=== PATIENT | female | born 1945 | race Caucasian/White ===

== ENCOUNTER → 2017-04-09 | Outpatient (CLI) | payer MEDICARE ==
[~2017-04-09] MED LIST: AC500T PO; ATRV10T; ATRV10T PO; CHOL10002 PO; CHOL10003; DIPH25TA82 PO; FAMO-119 PO; LEVO50TA6 PO; LEVO75TA58 PO; LOVOXYL; LVT.05T PO; PANT40TA2 PO; POLY119P PO; VIT D PO
== END | disposition home or self-care (01) ==
LOC: LAB 18:45
PROVIDERS: ATTEND Nurse Practitioner Family
DX: N39.0 Urinary tract infection, site not specified (principal)
CPT/HCPCS: 87070; 87088

== ENCOUNTER → 2017-04-19 | Outpatient (CLI) | payer MEDICARE | LOC: CARD 11:16 | PROVIDERS: ATTEND Family Medicine | DX: R01.1 Cardiac murmur, unspecified (principal) | CPT/HCPCS: 93225; 93226 ==

== ENCOUNTER 2017-05-31 13:45 | Outpatient (RCR) | payer MEDICARE | END 2017-05-31 16:46 | disposition home or self-care (01) | PROVIDERS: ATTEND Family Medicine | DX: G57.90 Unspecified mononeuropathy of unspecified lower limb (principal) ==

== ENCOUNTER → 2017-06-14 | Outpatient (CLI) | payer MEDICARE | LOC: CARD 10:07 | PROVIDERS: ATTEND Internal Medicine Cardiovascular Disease | DX: I47.1 Supraventricular tachycardia (principal) ==

== ENCOUNTER 2017-10-02 22:06 | Emergency (ER) | payer MEDICARE ==
[~2017-10-02] VITALS: Ht 175.3 cm; Wt 68.0 kg
--- OUTSIDE RECORDS SUMMARY | 2017-10-02 22:12 | XMS REPORT ---
Author Author GENERATED, SYSTEM Organization Unknown Address Unknown Phone Unavailable Care Team Providers Care Shingles Roofer Name Role Phone PP Unavailable Reason For Visit Reason for Visit from 08/14/2016 12:15 AM:* Pt Stated Reason for Adm : Weakness , LU, elevated lactic acid levels, pneumonia Chief Complaint PNEUMONIA, WEAKNESS Social History Social History from 08/14/2016 11:28 AM:* Tobacco Use? : Never Smoker Social History from 08/14/2016 12:15 AM:* Tobacco Use? : Never Smoker Functional Status Functional Status from 08/14/2016 10:00 AM:* # Assists : Independent Functional Status from 08/14/2016 7:30 AM:* LOC : Alert * Oriented To : Person,Place,Time * Weight Bearing Status : Full * Assist Level : Independent * # Assists : Independent Functional Status from 08/14/2016 12:15 AM:* LOC : Alert * Oriented To : Person,Place,Time,Event * Weight Bearing Status : Full * Assist Level : Independent * # Assists : Independent Vital Signs Hospital Vital Signs from 08/14/2016 11:00 AM:* Height : 5/9 ft,in * Pulse : 87 * Respirations : 18 * BP : 173/94 Hospital Vital Signs from 08/14/2016 6:12 AM:* Height : 5/9 ft,in * Temperature : 97.6 F * Pulse : 74 * Respirations : 18 * BP : 140/68 Hospital Vital Signs from 08/14/2016 12:15 AM:* Weight : 70.5/ kg * Height : 5/9 ft,in Hospital Vital Signs from 08/13/2016 11:45 PM:* Weight : 70.5/ kg * Height : 5/9 ft,in * Temperature : 97.6 F * Pulse : 89 * Respirations : 18 * BP : 166/80 Results Chemistry from 08/14/2016 12:58 AMTSH 17.003 UIU/ML H (0.340-4.820 UIU/ML) THYROXINE FREE (FT4) (LAB) 0.99 NG/DL (0.76-1.46 NG/DL) LACTIC ACID 1.7 mmol/L (0.9-1.7 mmol/L) Problems Encounter Diagnosis * Attacks of Weakness Status:Active. * Dehydration Status:Active. * Fall Risk Status:Active. * History of Hypothyroidism Status:Active. * History of Raised Blood Lipids Status:Active. * History of Tuberculosis Status:Active. Encounters Encounter Diagnosis * Attacks of Weakness Status:Active. * Dehydration Status:Active. * Fall Risk Status:Active. * History of Hypothyroidism Status:Active. * History of Raised Blood Lipids Status:Active. * History of Tuberculosis Status:Active. Plan of Care Treatment Plan from 08/14/2016 10:00 AM:* Care Management Note : Patient admitted under outpatient observation status w/ c/o generalized lower extremity weakness. Found to be dehydrated w/ acute kidney injury. 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 POC included IV fluids. Patient improved w/ anticipated DC to home today. Patient is outpatient status appropriate at this time. Procedures No relevant procedures performed. Immunizations No immunizations administered or ordered. Hospital Course Hospital Discharge Instructions How to care for yourself at home from 08/14/2016 11:28 AM:* Discharge Activity : Activity as tolerated * Discharge Diet : Diet as tolerated * Discharge Diet: : Regular * Call your doctor if: : Fever over 101 F or severe chills,Chest pain or other unexplained symptoms,Tingling or numbness develops * Specific Discharge Teaching Instructions provided: : Yes * Discharge on Warfarin : No Allergies, Adverse Reactions, Alerts * Benadryl causes Palpitations. * ephinepherine causes Palpitations. * Penicillins causes Rash. * No Latex Allergy. * No IV Contrast Allergy. * No Known Food Allergies. Medication It is the responsibility of the patient or patient physician relations representative to confirm the list of medications with either the patient's personal care provider or the patient's follow-up care provider to ensure the patient has an appropriate list of medications to take at home. Discharge medications Continued medications* cholecalciferol (vitamin D3) (Dialyvite Vitamin D) 5,000 unit Capsule, Ordered By: OLGA ARANGO MD Directions: 1 capsule oral daily * levothyroxine (Synthroid) 50 mcg Tablet, Ordered By: OLGA ARANGO MD Directions: 1 tablet oral daily before breakfast Changed medications* famotidine (Pepcid) 10 mg oral once a day in am Tablet, Ordered By: OLGA ARANGO MD Directions: 1 tablet oral daily Stopped medications* None
--- OUTSIDE RECORDS SUMMARY | 2017-10-02 22:13 | XMS REPORT | Continuity of Care Document ---
Author Author [facility] Organization [facility] Address Unknown Phone Unavailable Allergies Active Description Code Type Severity Reaction Onset Reported/Identified Relationship to Patient Clinical Status Yes Penicillins [id number] Drug Allergy Moderate RASH 11/11/2012 Yes azithromycin [id number] Drug Allergy Mild NAUSEA 04/11/2013 Yes BETA BLOCKERS BETA BLOCKERS Mild DIZZY 04/11/2013 Yes gabapentin [id number] Drug Allergy Mild DIZZY 04/11/2013 Yes levofloxacin [id number] Drug Allergy Mild NAUSEA 04/11/2013 Yes temazepam [id number] Drug Allergy Unknown UNSTEADY GAIT 08/23/2016 Medications Problems Date Dx Coded Attending Type Code Diagnosis Diagnosed By 08/16/2011 Ot 276.8 08/16/2011 Ot 786.50 11/11/2012 Ot 784.7 04/11/2013 AR PRESSLEY DO Ot 785.1 05/11/2015 Ot 733.90 05/11/2015 Ot V70.3 05/11/2015 Ot V76.12 05/11/2015 Ot V76.12 05/11/2015 Ot V76.12 05/11/2015 Ot 733.90 05/11/2015 CHRISTEL BATISTA DO S Ot 396.3 05/11/2015 CHRISTEL BATISTA DO S Ot 785.1 05/11/2015 WILBER BATISTA DOLINE S Ot 786.50 05/11/2015 CHRISTEL BATISTA DO S Ot V76.12 05/11/2015 WILBER BATISTA DOLINE S Ot V76.12 05/12/2015 GISELLE PERDUE DO Ot 244.9 05/12/2015 GISELLE PERDUE DO Ot 300.00 05/12/2015 GISELLE PERDUE DO Ot 401.9 05/12/2015 GISELLE PERDUE DO Ot 780.4 09/12/2015 CHRISTEL BATISTA DO Ot Z12.31 05/14/2016 DILLON RUFF, TAYLA S Ot R00.2 PALPITATIONS 05/17/2016 DILLON RUFF, TAYLA S Ot R00.2 PALPITATIONS 06/25/2016 ADELAIDEERNESTO DO CHRISTEL S Ot Z12.31 ENCNTR SCREEN MAMMOGRAM FOR MALIGNANT NE 06/28/2016 YAHIR WELLINGTON COMMUNITY OUTREACH COORDINATOR Ot K21.9 GASTRO-ESOPHAGEAL REFLUX DISEASE WITHOUT 06/28/2016 YAHIR WELLINGTON COMMUNITY OUTREACH COORDINATOR Ot R10.11 RIGHT UPPER QUADRANT PAIN 06/28/2016 YAHIR WELLINGTON N COMMUNITY OUTREACH COORDINATOR Ot R10.12 LEFT UPPER QUADRANT PAIN 06/28/2016 YAHIR WELLINGTON COMMUNITY OUTREACH COORDINATOR Ot R10.13 EPIGASTRIC PAIN 06/28/2016 YAHIR WELLINGTON COMMUNITY OUTREACH COORDINATOR Ot R19.7 DIARRHEA, UNSPECIFIED 07/20/2016 YAHIR WELLINGTON COMMUNITY OUTREACH COORDINATOR Ot K21.9 GASTRO-ESOPHAGEAL REFLUX DISEASE WITHOUT 07/20/2016 YAHIR WELLINGTON COMMUNITY OUTREACH COORDINATOR Ot R10.11 RIGHT UPPER QUADRANT PAIN 07/20/2016 YAHIR WELLINGTON COMMUNITY OUTREACH COORDINATOR Ot R10.12 LEFT UPPER QUADRANT PAIN 07/20/2016 YAHIR WELLINGTON COMMUNITY OUTREACH COORDINATOR Ot R10.13 EPIGASTRIC PAIN 07/20/2016 YAHIR WELLINGTON COMMUNITY OUTREACH COORDINATOR Ot R19.7 DIARRHEA, UNSPECIFIED 07/21/2016 YAHIR WELLINGTON COMMUNITY OUTREACH COORDINATOR Ot K21.9 GASTRO-ESOPHAGEAL REFLUX DISEASE WITHOUT 07/21/2016 YAHIR WELLINGTON COMMUNITY OUTREACH COORDINATOR Ot R10.11 RIGHT UPPER QUADRANT PAIN 07/21/2016 YAHIR WELLINGTON COMMUNITY OUTREACH COORDINATOR Ot R10.12 LEFT UPPER QUADRANT PAIN 07/21/2016 YAHIR WELLINGTON COMMUNITY OUTREACH COORDINATOR Ot R10.13 EPIGASTRIC PAIN 07/21/2016 YAHIR WELLINGTON COMMUNITY OUTREACH COORDINATOR Ot R19.7 DIARRHEA, UNSPECIFIED 08/19/2016 ELVA RUFF, DAQUAN Napier Ot K21.9 GASTRO-ESOPHAGEAL REFLUX DISEASE WITHOUT 08/19/2016 ELVA RUFF, DAQUAN Napier Ot Z01.818 ENCOUNTER FOR OTHER PREPROCEDURAL EXAMIN 08/19/2016 ELVA RUFF, DAQUAN Napier Ot Z12.11 ENCOUNTER FOR SCREENING FOR MALIGNANT NE 08/19/2016 ELVA RUFF, DAQUAN Napier Ot K21.9 GASTRO-ESOPHAGEAL REFLUX DISEASE WITHOUT 08/19/2016 ELVA RUFF, DAQUAN Napier Ot Z01.818 ENCOUNTER FOR OTHER PREPROCEDURAL EXAMIN 08/19/2016 LEVA RUFF, DAQUAN Napier Ot Z12.11 ENCOUNTER FOR SCREENING FOR MALIGNANT NE 08/23/2016 ORENDER DO, CHRISTEL S Ot Z12.31 ENCNTR SCREEN MAMMOGRAM FOR MALIGNANT NE 08/23/2016 YAHIR WELLINGTON N COMMUNITY OUTREACH COORDINATOR Ot K21.9 GASTRO-ESOPHAGEAL REFLUX DISEASE WITHOUT 08/23/2016 YAHIR WELLINGTON N COMMUNITY OUTREACH COORDINATOR Ot R10.11 RIGHT UPPER QUADRANT PAIN 08/23/2016 YAHIR WELLINGTON N COMMUNITY OUTREACH COORDINATOR Ot R10.12 LEFT UPPER QUADRANT PAIN 08/23/2016 YAHIR WELLINGTON N COMMUNITY OUTREACH COORDINATOR Ot R10.13 EPIGASTRIC PAIN 08/23/2016 YAHIR WELLINGTON N COMMUNITY OUTREACH COORDINATOR Ot R19.7 DIARRHEA, UNSPECIFIED 08/23/2016 ELVA RUFF, DAQUAN Napier Ot K21.9 GASTRO-ESOPHAGEAL REFLUX DISEASE WITHOUT 08/23/2016 ELVA RUFF, DAQUAN Napier Ot Z01.818 ENCOUNTER FOR OTHER PREPROCEDURAL EXAMIN 08/23/2016 ELVA RUFF, DAQUAN Napier Ot Z12.11 ENCOUNTER FOR SCREENING FOR MALIGNANT NE 08/23/2016 ORENDER DO, CHRISTEL S Ot Z12.31 ENCNTR SCREEN MAMMOGRAM FOR MALIGNANT NE 08/23/2016 YAHIR WELLINGTON N COMMUNITY OUTREACH COORDINATOR Ot K21.9 GASTRO-ESOPHAGEAL REFLUX DISEASE WITHOUT 08/23/2016 YAHIR WELLINGTON N COMMUNITY OUTREACH COORDINATOR Ot R10.11 RIGHT UPPER QUADRANT PAIN 08/23/2016 YAHIR WELLINGTON N COMMUNITY OUTREACH COORDINATOR Ot R10.12 LEFT UPPER QUADRANT PAIN 08/23/2016 YAHIR WELLINGTON N COMMUNITY OUTREACH COORDINATOR Ot R10.13 EPIGASTRIC PAIN 08/23/2016 AMISHYAHIR N COMMUNITY OUTREACH COORDINATOR Ot R19.7 DIARRHEA, UNSPECIFIED 08/23/2016 ELVA RUFF, DAQUAN M Ot K21.9 GASTRO-ESOPHAGEAL REFLUX DISEASE WITHOUT 08/23/2016 ELVA RUFF, DAQUAN Napier Ot Z01.818 ENCOUNTER FOR OTHER PREPROCEDURAL EXAMIN 08/23/2016 ELVA RUFF, DAQUAN Napier Ot Z12.11 ENCOUNTER FOR SCREENING FOR MALIGNANT NE 08/23/2016 ELVA RUFF, DAQUAN M Ot K20.9 ESOPHAGITIS, UNSPECIFIED 08/23/2016 ELVA RUFF, DAQUAN M Ot K25.9 GASTRIC ULCER, UNSP ACUTE OR CHRONIC, 08/23/2016 DAQUAN STEVENSON MD, Ot K57.90 DVRTCLOS OF INTEST, PART UNSP, W/O PERF 08/23/2016 DAQUAN STEVENSON MD, Ot Z12.11 ENCOUNTER FOR SCREENING FOR MALIGNANT NE 08/23/2016 DANIA FAIZA S D 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 08/23/2016 DANIA FAIZA S D E039 Hypothyroidism, unspecified 08/23/2016 RUSIN, FAIZA S D E559 Vitamin D deficiency, unspecified 08/23/2016 RUSIN, FAIZA S D E785 Hyperlipidemia, unspecified 08/23/2016 RUSIN, FAIZA S D E860 Dehydration 08/23/2016 DANIA FAIZA S D E872 Acidosis 08/23/2016 RUSIN FAIZA S D G5793 Unspecified mononeuropathy of bilateral lower limbs 08/23/2016 DANIA FAIZA S D K219 Gastro-esophageal reflux disease without esophagitis 08/23/2016 VALERYIN FAIZA S D N179 Acute kidney failure, unspecified 08/23/2016 RUSIN FAIZA S D R270 Ataxia, unspecified 08/23/2016 DANIA FAIZA S D R531 Weakness 08/23/2016 DANIA FAIZA S D R8271 Bacteriuria 08/23/2016 DANIA FAIZA S D R918 Other nonspecific abnormal finding of lung field 08/23/2016 DANIA FAIZA S D Z8611 Personal history of tuberculosis 08/24/2016 ELVA RUFF, DAQUAN Napier Ot K20.9 ESOPHAGITIS, UNSPECIFIED 08/24/2016 DAQUAN STEVENSON MD, Ot K25.9 GASTRIC ULCER, UNSP ACUTE OR CHRONIC, 08/24/2016 DAQUAN STEVENSON MD, Ot K57.90 DVRTCLOS OF INTEST, PART UNSP, W/O PERF 08/24/2016 DAQUAN STEVENSON MD, Ot Z12.11 ENCOUNTER FOR SCREENING FOR MALIGNANT NE 08/26/2016 CHRISTEL BATISTA DO Ot Z12.31 ENCNTR SCREEN MAMMOGRAM FOR MALIGNANT NE 08/26/2016 DAQUAN STEVENSON MD, Ot K20.9 ESOPHAGITIS, UNSPECIFIED 08/26/2016 DAQUAN STEVENSON MD M Ot K25.9 GASTRIC ULCER, UNSP ACUTE OR CHRONIC, 08/26/2016 ELVA RUFF, DAQUAN Napier Ot K57.90 DVRTCLOS OF INTEST, PART UNSP, W/O PERF 08/26/2016 ELVA RUFF, DAQUAN Napier Ot Z12.11 ENCOUNTER FOR SCREENING FOR MALIGNANT NE 08/26/2016 LESTER ARNETT CHRISTEL S Ot Z12.31 ENCNTR SCREEN MAMMOGRAM FOR MALIGNANT NE 08/27/2016 ADELAIDENDCHAS ARNETT, CHRISTEL S Ot Z12.31 ENCNTR SCREEN MAMMOGRAM FOR MALIGNANT NE 09/02/2016 ELVA RUFF, DAQUAN Napier Ot K20.9 ESOPHAGITIS, UNSPECIFIED 09/02/2016 ELVA RUFF, DAQUAN Napier Ot K25.9 GASTRIC ULCER, UNSP ACUTE OR CHRONIC, 09/02/2016 ELVA RUFF, DAQUAN Napier Ot K57.90 DVRTCLOS OF INTEST, PART UNSP, W/O PERF 09/02/2016 ELVA RUFF, DAQUAN Napier Ot Z12.11 ENCOUNTER FOR SCREENING FOR MALIGNANT NE 09/07/2016 NETTE ARNETT GISELLE K Ot R53.1 WEAKNESS 09/07/2016 NETTE DO GISELLE K Ot Z53.21 PROC/TRTMT NOT CRD OUT D/T PT LV BEF SEE 09/07/2016 MARILEE BATISTA DOQUELINE S Ot Z12.31 ENCNTR SCREEN MAMMOGRAM FOR MALIGNANT NE 04/06/2017 LESTER DO, CHRISTEL S Ot R01.1 CARDIAC MURMUR, UNSPECIFIED 04/06/2017 ADELAIDENDER DO, CHRISTEL S Ot R01.1 CARDIAC MURMUR, UNSPECIFIED 04/06/2017 ORENDER DO, CHRISTEL S Ot R01.1 CARDIAC MURMUR, UNSPECIFIED 04/06/2017 ORENDER DO, CHRISTEL S Ot R01.1 CARDIAC MURMUR, UNSPECIFIED 04/10/2017 SHIV MONTOYA Ot N39.0 URINARY TRACT INFECTION, SITE NOT SPECIF 04/11/2017 SHIV MONTOYA Ot N39.0 URINARY TRACT INFECTION, SITE NOT SPECIF 04/19/2017 ADELAIDENDCHAS DO, CHRISTEL S Ot R00.2 PALPITATIONS 04/19/2017 ADELAIDENDER DO, CHRISTEL S Ot R01.1 CARDIAC MURMUR, UNSPECIFIED 04/19/2017 ORENDER DO, CHRISTEL S Ot R00.2 PALPITATIONS 04/19/2017 ORENDER DO, CHRISTEL S Ot R01.1 CARDIAC MURMUR, UNSPECIFIED 04/19/2017 ORENDER DO, CHRISTEL S Ot R00.2 PALPITATIONS 04/19/2017 ORENDER DO, CHRISTEL S Ot R01.1 CARDIAC MURMUR, UNSPECIFIED 04/19/2017 ORENDER DO, CHRISTEL S Ot R00.2 PALPITATIONS 04/19/2017 ORENDER DO, CHRISTEL S Ot R01.1 CARDIAC MURMUR, UNSPECIFIED 04/20/2017 ORENDER DO, CHRISTEL S Ot R01.1 CARDIAC MURMUR, UNSPECIFIED 04/21/2017 ORENDER DO, CHRISTEL S Ot R01.1 CARDIAC MURMUR, UNSPECIFIED 04/26/2017 ORENDER DO, CHRISTEL S Ot R01.1 CARDIAC MURMUR, UNSPECIFIED 04/26/2017 ORENDER DO, CHRISTEL S Ot Z79.899 OTHER LONGTERM (CURRENT) DRUG THERAPY 04/27/2017 ORENDER DO, CHRISTEL S Ot G57.90 UNSPECIFIED MONONEUROPATHY OF UNSPECIFIE 05/04/2017 SHIV MONTOYA Ot N39.0 URINARY TRACT INFECTION, SITE NOT SPECIF 05/19/2017 ORENDER DO, CHRISTEL S Ot R01.1 CARDIAC MURMUR, UNSPECIFIED 05/19/2017 ORENDER DO, CHRISTEL S Ot Z79.899 OTHER LONGTERM (CURRENT) DRUG THERAPY 05/23/2017 ORENDER DO, CHRISTEL S Ot G57.90 UNSPECIFIED MONONEUROPATHY OF UNSPECIFIE 05/27/2017 ORENDER DO, CHRISTEL S Ot R01.1 CARDIAC MURMUR, UNSPECIFIED 05/27/2017 ORENDER DO, CHRISTEL S Ot Z79.899 OTHER LONGTERM (CURRENT) DRUG THERAPY 05/27/2017 ORENDER DO, CHRISTEL S Ot G57.90 UNSPECIFIED MONONEUROPATHY OF UNSPECIFIE 06/13/2017 CHLOE RUFF FACC, FLORESITA LONDON CCDS Ot I47.1 SUPRAVENTRICULAR TACHYCARDIA 06/14/2017 FLORESITA CORONA MD, FACC, FACP CCDS Ot I47.1 SUPRAVENTRICULAR TACHYCARDIA Procedures Code Description [place] [address] 08/13/2016 97496 08/13/2016 61091 08/13/2016 89896 08/13/2016 11054 08/13/2016 63518 08/13/2016 74970 08/13/2016 66308 08/13/2016 00523 08/13/2016 91442 08/13/2016 79052 08/13/2016 38107 08/13/2016 67896 08/13/2016 84874 08/13/2016 80553 08/13/2016 06535 08/13/2016 84348 08/13/2016 99523 08/13/2016 45663 08/13/2016 27618 08/13/2016 G0378 08/13/2016 G0479 08/13/2016 J0696 08/13/2016 50026 08/14/2016 65167 08/14/2016 62066 08/14/2016 63939 08/14/2016 G0378 08/14/2016 Results Encounters ACCT No. Visit Date/Time Discharge Status Pt. Type Provider Facility Loc./Unit Complaint [id number] 06/14/2017 10:07:00 2016 23:59:59 CLS Outpatient FLORESITA CORONA MD, FACC, FACP CCDS [facility] CARD I47.1 [id number] 05/31/2017 13:45:00 2016 16:46:00 DIS Outpatient WILBER BATISTA DOLINE S [facility] REHAB NEUROPATHY OF LEGS/FEET [id number] 04/19/2017 11:16:00 2016 23:59:59 CLS Outpatient WILBER BATISTA DOLINE S [facility] CARD CARDIAC MURMUR [id number] 04/09/2017 18:45:00 2016 23:59:59 CLS Outpatient SHIV MONTOYA [facility] LAB VAGINAL IRRITATION [id number] 04/06/2017 12:46:00 2016 23:59:59 CLS Preadmit WILBER BATISTA DOLINE S [facility] CARD CARDIAC MURMUR [id number] 09/06/2016 18:05:00 2015 18:54:00 DIS Emergency NETTE GISELLE [facility] ER WEAKNESS EPISODE [id number] 08/26/2016 07:10:00 2015 23:59:59 CLS Outpatient ADELAIDENDER DO CHRISTEL S [facility] RAD SCREENING [id number] 08/23/2016 06:50:00 2015 10:00:00 DIS Outpatient DAQUAN STEVENSON MD [facility] SDC SCREENING;GERD [id number] 08/19/2016 05:59:00 2015 23:59:59 CLS Outpatient DAQUAN STEVENSON MD [facility] PREOP SCREENING, GERD [id number] 06/25/2016 07:42:00 2015 23:59:59 CLS Outpatient AMISH YAHIR Pavithra HOBSON [facility] RAD BILATERAL UPPER QUADRENT PAIN [id number] 05/14/2016 14:18:00 2015 16:20:00 DIS Emergency DILLON RUFF, TAYLA [place] [facility] ER IRR HEART RATE [id number] 08/22/2015 07:20:00 2014 23:59:59 CLS Outpatient DAYNAER DO CHRISTEL S [facility] RAD SCREENING [id number] 05/11/2015 22:42:00 2014 01:08:00 DIS Emergency NETTE ARNETTBHAVESHA Karthik [facility] ER [id number] 07/25/2014 07:44:00 2013 23:59:59 CLS Outpatient ADELAIDENDER DO CHRISTEL S [facility] RAD [id number] 04/30/2014 12:00:00 2013 23:59:59 CLS Outpatient [id number] 07/17/2013 06:53:00 2012 23:59:59 CLS Outpatient ADELAIDENDER DO CHRISTEL S [facility] RAD [id number] 04/17/2013 08:58:00 2012 23:59:59 CLS Outpatient CHRISTEL BATISTA DO [facility] CARD [id number] 04/11/2013 13:41:00 2012 16:34:00 DIS Emergency AR PRESSLEY DO [facility] ER [id number] 12/01/2012 10:23:00 Document Registration [id number] 11/11/2012 13:12:00 Document Registration [id number] 07/14/2012 07:02:00 Document Registration [id number] 08/16/2011 10:25:00 Document Registration [id number] 07/13/2011 07:08:00 Document Registration [id number] 07/02/2010 08:40:00 Document Registration [id number] 08/13/2016 23:26:00 2015 12:43:31 DIS Outpatient FAIZA NAJERA S <PV2.3.2>Weakness</PV2.3.2><PV2.3.2>PNEUMONIA, WEAKNESS</PV2.3.2><PV2.3.2> Dehydration</PV2.3.2><PV2.3.2>Acute kidney failure, unspecified</PV2.3.2>< PV2.3.2>Weakness</PV2.3.2><PV2.3.2>Other nonspecific abnormal finding of lung field</PV2.3.2><PV2.3.2>Ataxia, unspecified</PV2.3.2><PV2.3.2>Bacteriuria</ PV2.3.2><PV2.3.2>Acidosis</PV2.3.2><PV2.3.2>Hypothyroidism, unspecified</ PV2.3.2><PV2.3.2>Hyperlipidemia, unspecified</PV2.3.2><PV2.3.2>Gastro- esophageal reflux disease without esophagitis</PV2.3.2><PV2.3.2>Vitamin D deficiency, unspecified</PV2.3.2><PV2.3.2>Unspecified mononeuropathy of bilateral lower limbs</PV2.3.2><PV2.3.2>Personal history of tuberculosis</ PV2.3.2><PV2.3.2>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
[2017-10-02] MEDS ORDERED: LEVO25TA5 (22:19)
[2017-10-02] MEDS ORDERED: SULF-222 (22:19)
--- NOTE | 2017-10-02 22:36 | ED General ---
General Chief Complaint: Dizziness/Syncope Stated Complaint: SWEATS WEAK Nursing Triage Note: approx. 5min episode of weakness, nausea. 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 BATISTA. STATES SHE NORMALLY DOES NOT DRINK ALOT OF FLUIDS, AND HAS BEEN DEHYDRATED BEFORE. NO ABDOMINAL PAIN NO DIARRHEA NO VOMITING HAS HISTORY OF SAME SEVERAL TIMES, AND HAS CHRONIC INTERMITTENT DIZZINESS, ESPECIALLY WITH HEAD MOVEMENTS. USUALLY DOES NOT HAVE SWEATS OR NAUSEA WITH IT. NOT DIZZY THIS TIME HAS HAD HOLTER MONITOR AND STRESS TEST RECENTLY AND REPORTEDLY WERE NORMAL--2016 PT HAS KNOWN UNDER-TREATED HYPOTHYROIDISM--PT STATES SHE CANNOT TOLERATE HIGHER DOSES OF THYROID MEDICATIONS PCP: DR. BATISTA--NEXT APPOINTMENT 10/12/17 Allergies and Home Medications Allergies Coded Allergies: Penicillins (Verified Allergy, Intermediate, RASH, 11/11/12) azithromycin (Verified Adverse Reaction, Mild, NAUSEA, 04/11/13) gabapentin (Verified Adverse Reaction, Mild, DIZZY, 04/11/13) levofloxacin (Verified Adverse Reaction, Mild, NAUSEA, 04/11/13) temazepam (Verified Adverse Reaction, Unknown, UNSTEADY GAIT, 08/23/16) Uncoded Allergies: BETA BLOCKERS (Adverse Reaction, Mild, DIZZY, 04/11/13) Home Medications Acetaminophen 500 Mg Tablet, 500 MG PO Q4H PRN, (Reported) Cholecalciferol 1,000 Unit Tab, 1,000 UNIT PO DAILY, (Reported) Levothyroxine Sodium 25 Mcg Tablet, (Reported) Pantoprazole Sodium 40 Mg Tablet., 40 MG PO DAILY, #30 Ref 5 Prescribed by: DAQUAN STEVENSON on 08/23/16 0854 Polyethylene Glycol 119 Gm Btl, 0 PO DAILY, (Reported) 17 GM Sulfamethoxazole/Trimethoprim 1 Each Tablet, (Reported) Constitutional: see HPI, diaphoresis, weakness EENTM: no symptoms reported Respiratory: no symptoms reported Cardiovascular: no symptoms reported, No chest pain, No edema, No palpitations , No syncope, No vascular heart diseas Gastrointestinal: see HPI, No diarrhea, No loss of appetite, nausea, No vomiting Genitourinary: no symptoms reported Musculoskeletal: no symptoms reported, No neck pain Skin: no symptoms reported Psychiatric/Neurological: No Symptoms Reported, Denies Headache, Denies Numbness, Denies Paresthesia, Denies Seizure, Denies Tingling, Denies Weakness Hematologic/Lymphatic: No Symptoms Reported Immunological/Allergic: no symptoms reported Past Hqqgzcd-[place]-Gpfpks Hx Patient Social History Alcohol Use: Denies Use Recreational Drug Use: No Smoking Status: Never a Smoker 2nd Hand Smoke Exposure: No Recent Foreign Travel: No Contact w/Someone Who Travel: No Recent Infectious Disease Expo: No Recent Hopitalizations: No (ER-IN [facility] 08/14/16) Immunizations Up To Date Tetanus Booster (TDap): Unknown Date of Pneumonia Vaccine: Aug 31, 1998 Date of Influenza Vaccine: Jul 31, 2012 Seasonal Allergies Seasonal Allergies: No Surgeries History of Surgeries: Yes (EYE, TEETH, EGD/COLONOSCOPIES, BUNIONECTOMY,) Surgeries: Eye Surgery, Hysterectomy, Orthopedic Respiratory History of Respiratory Disorde: No Cardiovascular History of Cardiac Disorders: Yes Cardiac Disorders: Hypertension, Palpitations Neurological History of Neurological Disord: Yes Neurological Disorders: Neuropathy, Vertigo Reproductive System : No Hx Reproductive Disorders: No 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 History: Hysterectomy, Menopausal Genitourinary History of Genitourinary Disor: Yes Genitourinary Disorders: UTI-Chronic Gastrointestinal History of Gastrointestinal Di: Yes Gastrointestinal Disorders: Gastroesophageal Reflux, Polyps, Esophagitis, Ulcer Musculoskeletal History of Musculoskeletal Dis: No Endocrine History of Endocrine Disorders: Yes Endocrine Disorders: Hypothyroidsim HEENT History of HEENT Disorders: Yes HEENT Disorders: Cataract Cancer History of Cancer: No Psychosocial History of Psychiatric Problem: Yes Behavioral Health Disorders: Anxiety Integumentary History of Skin or Integumenta: No Blood Transfusions History of Blood Disorders: No Physical Exam Vital Signs Vital Sign - Last 12Hours 10/02/17 22:20 Temp 98.4 Pulse 92 Resp 18 B/P (MAP) 138/98 (111) Pulse Ox 97 O2 Delivery Room Air Capillary Refill : Less Than 3 Seconds General Appearance: No Apparent Distress, WD/WN, Other (VERY TALKATIVE) HEENT: PERRL/EOMI (STRABISMUS), TMs Normal, Normal ENT Inspection, Pharynx Normal Neck: Full Range of Motion, Normal Inspection, Non Tender, Supple, No Carotid Bruit, No JVD Respiratory: Normal Breath Sounds, No Accessory Muscle Use, No Respiratory Distress Cardiovascular: Regular Rate, Rhythm, No Edema, No JVD, No Murmur, Normal Peripheral Pulses Gastrointestinal: Normal Bowel Sounds, No Organomegaly, No Pulsatile Mass, Non Tender, Soft Back: Normal Inspection, No CVA Tenderness, No Vertebral Tenderness Extremity: Normal Capillary Refill, Normal Inspection, Normal Range of Motion, Non Tender, No Calf Tenderness, No Pedal Edema Neurologic/Psychiatric: Alert, Oriented x3, No Motor/Sensory Deficits, Normal 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, 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 as 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, No Abnormal Cerebellar Tests Skin: Normal Color, Warm/Dry Focused Exam Evaluation Lactate Level Laboratory Tests 10/02/17 22:40: Lactic Acid Level 2.37*H Lactic Acid Level Laboratory Tests Test 10/02/17 22:40 Lactic Acid Level 2.37 MMOL/L (0.50-2.00) *H Progress/Results/Core Measures Suspected Sepsis Recent Fever Within 48 Hours: No Infection Criteria Present: None New/Unexplained Altered Menta: No Sepsis Screen: No Definite Risk Sepsis Diagnosis: SIRS Temperature:98.4 Pulse: 92 Respiratory Rate: 18 Laboratory Tests 10/02/17 22:40: White Blood Count 10.4 Blood Pressure 138 /98 Mean: 111 Laboratory Tests 10/02/17 22:40: Lactic Acid Level 2.37*H Laboratory Tests 10/02/17 22:40: Creatinine 1.38H, INR Comment 0.9, Platelet Count 350, Total Bilirubin 0.5 Results/Orders Lab Results Laboratory Tests Test 10/02/17 22:40 10/02/17 23:20 Range/Units White Blood Count 10.4 4.3-11.0 10^3/uL Red Blood Count 4.52 4.35-5.85 10^6/uL Hemoglobin 14.4 11.5-16.0 G/DL Hematocrit 42 35-52 % Mean Corpuscular Volume 93 80-99 FL Mean Corpuscular Hemoglobin 32 25-34 PG Mean Corpuscular Hemoglobin Concent 34 32-36 G/DL Red Cell Distribution Width 13.2 10.0-14.5 % Platelet Count 350 130-400 10^3/uL Mean Platelet Volume 10.5 H 7.4-10.4 FL Neutrophils (%) (Auto) 53 42-75 % Lymphocytes (%) (Auto) 30 12-44 % Monocytes (%) (Auto) 10 0-12 % Eosinophils (%) (Auto) 7 0-10 % Basophils (%) (Auto) 1 0-10 % Neutrophils # (Auto) 5.5 1.8-7.8 X 10^3 Lymphocytes # (Auto) 3.1 1.0-4.0 X 10^3 Monocytes # (Auto) 1.0 0.0-1.0 X 10^3 Eosinophils # (Auto) 0.7 H 0.0-0.3 10^3/uL Basophils # (Auto) 0.1 0.0-0.1 10^3/uL Prothrombin Time 12.7 12.2-14.7 SEC INR Comment 0.9 0.8-1.4 Activated Partial Thromboplast Time 27 24-35 SEC Sodium Level 139 135-145 MMOL/L Potassium Level 3.6 3.6-5.0 MMOL/L Chloride Level 104 98-107 MMOL/L Carbon Dioxide Level 25 21-32 MMOL/L Anion Gap 10 5-14 MMOL/L Blood Urea Nitrogen 18 7-18 MG/DL Creatinine 1.38 H 0.60-1.30 MG/DL Estimat Glomerular Filtration Rate 37 BUN/Creatinine Ratio 13 Glucose Level 98 70-105 MG/DL Lactic Acid Level 2.37 *H 0.50-2.00 MMOL/L Calcium Level 10.0 8.5-10.1 MG/DL Magnesium Level 2.2 1.8-2.4 MG/DL Total Bilirubin 0.5 0.1-1.0 MG/DL Aspartate Amino Transf (AST/SGOT) 23 5-34 U/L Alanine Aminotransferase (ALT/SGPT) 14 0-55 U/L Alkaline Phosphatase 51 40-136 U/L Troponin I < 0.30 <0.30 NG/ML B-Type Natriuretic Peptide 49.9 <100.0 PG/ML Total Protein 8.2 6.4-8.2 GM/DL Albumin 4.3 3.2-4.5 GM/DL TSH Payne Testing 6.05 H 0.35-4.94 UIU/ML Urine Color YELLOW Urine Clarity CLEAR Urine pH 6 5-9 Urine Specific Bison 1.015 L 1.016-1.022 Urine Protein NEGATIVE NEGATIVE Urine Glucose (UA) NEGATIVE NEGATIVE Urine Ketones NEGATIVE NEGATIVE Urine Nitrite NEGATIVE NEGATIVE Urine Bilirubin NEGATIVE NEGATIVE Urine Urobilinogen NORMAL NORMAL MG/DL Urine Leukocyte Esterase NEGATIVE NEGATIVE Urine RBC (Auto) NEGATIVE NEGATIVE Urine RBC NONE /HPF Urine WBC NONE /HPF Urine Squamous Epithelial Cells 5-10 /HPF Urine Crystals NONE /LPF Urine Bacteria TRACE /HPF Urine Casts NONE /LPF Urine Mucus SMALL H /LPF Urine Culture Indicated NO My Orders Orders - GISELLE PERDUE DO Saline Lock/Iv-Start (10/02/17 22:25) Ekg Tracing (10/02/17 22:25) Monitor-Rhythm Ecg Trace Only (10/02/17 22:25) Cbc With Automated Diff (10/02/17 22:25) Comprehensive Metabolic Panel (10/02/17 22:25) Lactic Acid Analyzer (10/02/17 22:25) Magnesium (10/02/17 22:25) Thyroid Analyzer (10/02/17 22:25) Troponin I (10/02/17 22:25) Ua Culture If Indicated (10/02/17 22:25) BNP (10/02/17 22:25) Protime With Inr (10/02/17 22:25) Partial Thromboplastin Time (10/02/17 22:25) Chest Pa/Lat (2 View) (10/02/17 23:23) Blood Culture (10/02/17 23:23) Free T4 (Free Thyroxine) (10/02/17 22:40) Vital Signs/I&O Vital Sign - Last 12Hours 10/02/17 22:20 Temp 98.4 Pulse 92 Resp 18 B/P (MAP) 138/98 (111) Pulse Ox 97 O2 Delivery Room Air Capillary Refill : Less Than 3 Seconds Blood Pressure Mean: 111 Progress Note : Progress Note SYMPTOMS OF ANY KIND DURING ER STAY ECG Initial ECG Impression Time: 22:27 Initial ECG Rate: 80 Initial ECG Rhythm: Normal Sinus (LAFB) Initial ECG Comparisson: Unchanged Diagnostic Imaging Comments CXR--NO ACUTE PROCESS, PENDING RADIOLOGIST REVIEW Reviewed: Reviewed by Me Departure Impression Impression: Primary Impression: TRANSIENT WEAKNESS ON EXERTION Additional Impressions: Mild dehydration Renal insufficiency UTI RESOLVED Hypothyroidism Disposition: 01 HOME, SELF-CARE Condition: Stable Departure-Patient Inst. Referrals: CHRISTEL BATISTA DO (PCP/Family) Primary Care Physician Patient Instructions: Generalized Weakness (DC), Hypothyroidism (Underactive Thyroid) (DC) Add. Discharge Instructions: CONTINUE YOUR MEDICATIONS PRESCRIBED FOLLOW UP WITH DR. BATISTA IN 2-3 DAYS FOR FURTHER CARE RETURN TO ER IF SYMPTOMS RETURN All discharge instructions reviewed with patient and/or family. Voiced understanding. GISELLE PERDUE DO Oct 02, 2017 22:36
[2017-10-02 22:57] LABS: BASOPHILS # (AUTO) 0.1 10^3/uL (0.0-0.1); BASOPHILS % (AUTO) 1 % (0-10); EOSINOPHILS # (AUTO) 0.7 10^3/uL (0.0-0.3); EOSINOPHILS % (AUTO) 7 % (0-10); LYMPHOCYTES # (AUTO) 3.1 X 10^3 (1.0-4.0); LYMPHOCYTES % (AUTO) 30 % (12-44); MEAN CORPUSCULAR HEMOGLOBIN 32 PG (25-34); MEAN CORPUSCULAR HGB CONC 34 G/DL (32-36); MEAN CORPUSCULAR VOLUME 93 FL (80-99); MEAN PLATELET VOLUME 10.5 FL (7.4-10.4); MONOCYTES % (AUTO) 10 % (0-12); NEUTROPHILS # (AUTO) 5.5 X 10^3 (1.8-7.8); NEUTROPHILS % (AUTO) 53 % (42-75); PLATELET COUNT 350 10^3/uL (130-400); RED BLOOD COUNT 4.52 10^6/uL (4.35-5.85); RED CELL DISTRIBUTION WIDTH 13.2 % (10.0-14.5); WHITE BLOOD COUNT 10.4 10^3/uL (4.3-11.0)
[2017-10-02 23:02] LABS: INR 0.9 (0.8-1.4); PROTHROMBIN TIME PATIENT 12.7 SEC (12.2-14.7)
[2017-10-02 23:10] LABS: ALANINE AMINOTRANSFERASE 14 U/L (0-55); ALBUMIN 4.3 GM/DL (3.2-4.5); ANION GAP 10 MMOL/L (5-14); ASPARTATE AMINO TRANSFERASE 23 U/L (5-34); BILIRUBIN,TOTAL 0.5 MG/DL (0.1-1.0); BLOOD UREA NITROGEN 18 MG/DL (7-18); BUN/CREATININE RATIO 13; CARBON DIOXIDE 25 MMOL/L (21-32); CHLORIDE 104 MMOL/L (98-107); CREATININE SERUM 1.38 MG/DL (0.60-1.30); GFR ESTIMATED 37; GLUCOSE 98 MG/DL (70-105); MAGNESIUM 2.2 MG/DL (1.8-2.4); POTASSIUM 3.6 MMOL/L (3.6-5.0); SODIUM 139 MMOL/L (135-145); TOTAL PROTEIN 8.2 GM/DL (6.4-8.2)
[2017-10-02 23:30] LABS: TROPONIN I < 0.30 NG/ML (<0.30)
[2017-10-02 23:32] LABS: BILIRUBIN,URINE NEGATIVE (NEGATIVE); KETONES,URINE NEGATIVE (NEGATIVE); LEUKOCYTE ESTERASE ,URINE NEGATIVE (NEGATIVE); NITRITE,URINE NEGATIVE (NEGATIVE); PH,URINE 6 (5-9); PROTEIN,URINE NEGATIVE (NEGATIVE); UROBILINOGEN,URINE NORMAL (NORMAL)
[2017-10-02] MEDS ORDERED: LACTATED RINGERS 1,000 ML IV ONE (23:47)
[2017-10-03 00:29] VITALS: BP 176/83
--- NOTE | 2017-10-03 07:14 | Diagnostic Imaging Report ---
INDICATION: Dizziness and weakness. PA and lateral views of the chest are obtained with comparison made study of 05/14/2016. FINDINGS: Heart size and pulmonary vascularity are within normal limits, and the lungs are clear, bilaterally. IMPRESSION: Unremarkable chest. Dictated by: Dictated on workstation # [id number]
== END 2017-10-03 00:29 | disposition home or self-care (01) ==
LOC: EDUNIT# 22:06 → ER 22:08
DX: N39.0 Urinary tract infection, site not specified (principal); E86.0 Dehydration; N28.9 Disorder of kidney and ureter, unspecified; E03.9 Hypothyroidism, unspecified; R53.1 Weakness; F41.9 Anxiety disorder, unspecified; I10 Essential (primary) hypertension; K21.9 Gastro-esophageal reflux disease without esophagitis; Z90.710 Acquired absence of both cervix and uterus; Z86.010 Personal history of colon polyps; Z87.19 Personal history of other diseases of the digestive system
CPT/HCPCS: 36415; 71020; 80053; 81000; 83605; 83735; 83880; 84439; 84443; 84484; 85025; 85610; 85730; 87040; 93005; 93041

== ENCOUNTER 2017-12-31 20:34 | Emergency (ER) | payer MEDICARE ==
[~2017-12-31] VITALS: Ht 175.3 cm; Wt 68.0 kg
[~2017-12-31 20:34] MED LIST changes: +LEVO25TA5; +SULF-222
[2017-12-31] MEDS ORDERED: ASPIRIN 81 MG CHEW (CHILDREN'S ASA) PO ONE (21:00)
[2017-12-31 21:14] LABS: BASOPHILS # (AUTO) 0.1 10^3/uL (0.0-0.1); BASOPHILS % (AUTO) 1 % (0-10); EOSINOPHILS # (AUTO) 0.6 10^3/uL (0.0-0.3); EOSINOPHILS % (AUTO) 7 % (0-10); HEMATOCRIT 40 % (35-52); LYMPHOCYTES # (AUTO) 2.8 X 10^3 (1.0-4.0); LYMPHOCYTES % (AUTO) 33 % (12-44); MEAN CORPUSCULAR HEMOGLOBIN 33 PG (25-34); MEAN CORPUSCULAR HGB CONC 35 G/DL (32-36); MEAN CORPUSCULAR VOLUME 94 FL (80-99); MEAN PLATELET VOLUME 10.9 FL (7.4-10.4); MONOCYTES # (AUTO) 0.8 X 10^3 (0.0-1.0); MONOCYTES % (AUTO) 9 % (0-12); NEUTROPHILS # (AUTO) 4.2 X 10^3 (1.8-7.8); NEUTROPHILS % (AUTO) 50 % (42-75); PLATELET COUNT 276 10^3/uL (130-400); WHITE BLOOD COUNT 8.5 10^3/uL (4.3-11.0)
[2017-12-31 21:43] LABS: ALANINE AMINOTRANSFERASE 18 U/L (0-55); ALBUMIN 4.1 GM/DL (3.2-4.5); ALKALINE PHOSPHATASE 53 U/L (40-136); BILIRUBIN,TOTAL 0.3 MG/DL (0.1-1.0); BUN/CREATININE RATIO 16; CALCIUM 9.4 MG/DL (8.5-10.1); CARBON DIOXIDE 24 MMOL/L (21-32); CHLORIDE 107 MMOL/L (98-107); CREATININE SERUM 1.02 MG/DL (0.60-1.30); GFR ESTIMATED 53; GLUCOSE 119 MG/DL (70-105); MAGNESIUM 2.3 MG/DL (1.8-2.4); POTASSIUM 3.7 MMOL/L (3.6-5.0); SODIUM 141 MMOL/L (135-145); TOTAL PROTEIN 7.4 GM/DL (6.4-8.2)
[2017-12-31 21:50] LABS: MYOGLOBIN SERUM 48.7 NG/ML (10.0-92.0)
--- NOTE | 2017-12-31 22:15 | Diagnostic Imaging Report ---
Clinical indication: Patient with palpitations and weakness this evening. Exam: Portable chest x-ray semi-upright view. Comparisons: X-ray dated 10/02/2017. Findings: Lungs/pleura: There is slight increased mild bibasilar atelectasis. Otherwise, lungs are clear. There is no pneumothorax. There is no pleural effusion. Mediastinum: Unremarkable. Pulmonary vasculature: Unremarkable. Heart: Unremarkable. Bones/extrathoracic soft tissue: There are degenerative spurs involving the thoracic spine. Impression: There is slight increased mild bibasilar atelectasis. Otherwise, there is no radiographic evidence of acute cardiopulmonary process. Dictated by: Dictated on workstation # [id number]
--- NOTE | 2017-12-31 23:17 | ED Cardiac General ---
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 DENIES ANY PREVIOUS CARDIAC HX AT THIS TIME. Source: patient Exam Limitations: no limitations History of Present Illness Date Seen by Provider: Dec 31, 2017 Time Seen by Provider: 23:08 Initial Comments Here with palpitations but was associated with a little bit of nausea and very mild dizziness and reportedly very mild diaphoresis that started about 20 minutes before presenting here but resolved prior to arrival and has been gone since. She has had history of similar in the past that has been associated with dehydration and/or associated with medications for treatment of her thyroid. Wound hormone replacement. She is currently on Premarin and has been for a few months for vaginitis. This is a topical cream that she is using and she is only using it twice a week. She has not had problems with that this time with the lower dose and increased time between dosing but states this may be the problem as well. Currently has no symptoms. 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 ASA po VICE PRESIDENT [employer]ETING [employer]ELOPMENT: No Associated Systoms: No Chest Pain, No Cough, Diaphoresis, No Fever/Chills, Nausea/Vomiting, No Shortness of Air, No Weakness Allergies and Home Medications Allergies Coded Allergies: Penicillins (Verified Allergy, Intermediate, RASH, 11/11/12) azithromycin (Verified Adverse Reaction, Mild, NAUSEA, 04/11/13) gabapentin (Verified Adverse Reaction, Mild, DIZZY, 04/11/13) levofloxacin (Verified Adverse Reaction, Mild, NAUSEA, 04/11/13) temazepam (Verified Adverse Reaction, Unknown, UNSTEADY GAIT, 08/23/16) Uncoded Allergies: BETA BLOCKERS (Adverse Reaction, Mild, DIZZY, 04/11/13) Home Medications Acetaminophen 500 Mg Tablet, 500 MG PO Q4H PRN, (Reported) Cholecalciferol 1,000 Unit Tab, 1,000 UNIT PO DAILY, (Reported) Pantoprazole Sodium 40 Mg Tablet.dr, 40 MG PO DAILY Prescribed by: DAQUAN STEVENSON on 08/23/16 0854 Polyethylene Glycol 119 Gm Btl, 0 PO DAILY, (Reported) 17 GM Patient Home Medication List Home Medication List Reviewed: Yes Review of Systems Constitutional: see HPI, No chills, No fever EENTM: No Symptoms Reported Respiratory: See HPI Cardiovascular: See HPI, Denies Lightheadedness, Palpitations Gastrointestinal: Denies Abdominal Pain, Denies Diarrhea, Nausea, Denies Vomiting Genitourinary: No Symptoms Reported Musculoskeletal: no symptoms reported All Other Systems Reviewed Negative Unless Noted: Yes Past Ofdxofg-Sxmasf-Zpumyv Hx Patient Social History Alcohol Use: Denies Use Recreational Drug Use: No Smoking Status: Never a Smoker 2nd Hand Smoke Exposure: No Recent Foreign Travel: No Contact w/Someone Who Travel: No Recent Infectious Disease Expo: No Recent Hopitalizations: No (ER-IN [facility] 08/14/16) Immunizations Up To Date Tetanus Booster (TDap): Unknown Date of Pneumonia Vaccine: Aug 31, 1998 Date of Influenza Vaccine: Jul 31, 2012 Seasonal Allergies Seasonal Allergies: No Surgeries History of Surgeries: Yes (EYE, TEETH, EGD/COLONOSCOPIES, BUNIONECTOMY,) Surgeries: Eye Surgery, Hysterectomy, Orthopedic Respiratory History of Respiratory Disorde: No Cardiovascular History of Cardiac Disorders: Yes Cardiac Disorders: Hypertension, Palpitations Neurological History of Neurological Disord: Yes Neurological Disorders: Neuropathy, Vertigo Reproductive System Hx Reproductive Disorders: 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, 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 Genitourinary History of Genitourinary Disor: Yes Genitourinary Disorders: UTI-Chronic Gastrointestinal History of Gastrointestinal Di: Yes Gastrointestinal Disorders: Gastroesophageal Reflux, Polyps, Esophagitis, Ulcer Musculoskeletal History of Musculoskeletal Dis: No Endocrine History of Endocrine Disorders: Yes Endocrine Disorders: Hypothyroidsim HEENT History of HEENT Disorders: Yes HEENT Disorders: Cataract Cancer History of Cancer: No Psychosocial History of Psychiatric Problem: Yes Behavioral Health Disorders: Anxiety Integumentary History of Skin or Integumenta: No Blood Transfusions History of Blood Disorders: No Reviewed Nursing Assessment Reviewed/Agree w Nursing PMH: Yes Family Medical History Significant Family History: No Pertinent Family Hx Physical Exam Vital Signs Vital Signs - First Documented 12/31/17 20:38 Temp 97.1 Pulse 95 Resp 18 B/P (MAP) 180/109 (132) Pulse Ox 98 O2 Delivery Room Air Capillary Refill : Less Than 3 Seconds General Appearance: No Apparent Distress, WD/WN HEENT: Other (disconjugate gaze) Neck: Non Tender, Supple Respiratory: Lungs Clear, Normal Breath Sounds Cardiovascular: Regular Rate, Rhythm, No Murmur, Tachycardia (pulse 90s to low 100s) Gastrointestinal: Non Tender, Soft Extremity: Normal Range of Motion, Non Tender, No Calf Tenderness Neurologic/Psychiatric: Alert, Oriented x3 Skin: Normal Color, Warm/Dry Progress/Results/Core Measures Results/Orders Lab Results Laboratory Tests Test 12/31/17 20:58 12/31/17 23:14 Range/Units White Blood Count 8.5 4.3-11.0 10^3/uL Red Blood Count 4.30 L 4.35-5.85 10^6/uL Hemoglobin 14.0 11.5-16.0 G/DL Hematocrit 40 35-52 % Mean Corpuscular Volume 94 80-99 FL Mean Corpuscular Hemoglobin 33 25-34 PG Mean Corpuscular Hemoglobin Concent 35 32-36 G/DL Red Cell Distribution Width 13.0 10.0-14.5 % Platelet Count 276 130-400 10^3/uL Mean Platelet Volume 10.9 H 7.4-10.4 FL Neutrophils (%) (Auto) 50 42-75 % Lymphocytes (%) (Auto) 33 12-44 % Monocytes (%) (Auto) 9 0-12 % Eosinophils (%) (Auto) 7 0-10 % Basophils (%) (Auto) 1 0-10 % Neutrophils # (Auto) 4.2 1.8-7.8 X 10^3 Lymphocytes # (Auto) 2.8 1.0-4.0 X 10^3 Monocytes # (Auto) 0.8 0.0-1.0 X 10^3 Eosinophils # (Auto) 0.6 H 0.0-0.3 10^3/uL Basophils # (Auto) 0.1 0.0-0.1 10^3/uL Prothrombin Time 13.0 12.2-14.7 SEC INR Comment 1.0 0.8-1.4 Activated Partial Thromboplast Time 32 24-35 SEC D-Dimer 0.33 0.00-0.49 UG/ML Sodium Level 141 135-145 MMOL/L Potassium Level 3.7 3.6-5.0 MMOL/L Chloride Level 107 98-107 MMOL/L Carbon Dioxide Level 24 21-32 MMOL/L Anion Gap 10 5-14 MMOL/L Blood Urea Nitrogen 16 7-18 MG/DL Creatinine 1.02 0.60-1.30 MG/DL Estimat Glomerular Filtration Rate 53 BUN/Creatinine Ratio 16 Glucose Level 119 H 70-105 MG/DL Calcium Level 9.4 8.5-10.1 MG/DL Magnesium Level 2.3 1.8-2.4 MG/DL Total Bilirubin 0.3 0.1-1.0 MG/DL Aspartate Amino Transf (AST/SGOT) 22 5-34 U/L Alanine Aminotransferase (ALT/SGPT) 18 0-55 U/L Alkaline Phosphatase 53 40-136 U/L Myoglobin 48.7 10.0-92.0 NG/ML Troponin I < 0.30 < 0.30 <0.30 NG/ML Total Protein 7.4 6.4-8.2 GM/DL Albumin 4.1 3.2-4.5 GM/DL My Orders Orders - DIA ALMANZA MD Cbc With Automated Diff (12/31/17 20:50) Magnesium (12/31/17 20:50) Chest 1 View, Ap/Pa Only (12/31/17 20:50) Ekg Tracing (12/31/17 20:50) Cardiac Profile 1 (12/31/17 20:50) Comprehensive Metabolic Panel (12/31/17 20:50) Myoglobin Serum (12/31/17 20:50) Protime With Inr (12/31/17 20:50) Partial Thromboplastin Time (12/31/17 20:50) O2 (12/31/17 20:50) Monitor-Rhythm Ecg Trace Only (12/31/17 20:50) Lipid Panel (01/01/18 06:00) Aspirin Chewable Tablet (Baby Aspirin Ch (12/31/17 21:00) Saline Lock/Iv-Start (12/31/17 20:50) Fibrin Degradation Products (12/31/17 20:50) Ekg Tracing (12/31/17 23:15) Troponin I (12/31/17 23:15) Medications Given in ED Current Medications Medications Dose Ordered Sig/Tyler Route Start Time Stop Time Status Last Admin Dose Admin Aspirin 324 mg ONCE ONCE PO 12/31/17 21:00 12/31/17 21:01 DC 12/31/17 21:29 324 MG Vital Signs/I&O Vital Sign - Last 12Hours 12/31/17 20:38 Temp 97.1 Pulse 95 Resp 18 B/P (MAP) 180/109 (132) Pulse Ox 98 O2 Delivery Room Air Blood Pressure Mean: 132 Progress Note : Progress Note Seen and evaluated. IV, labs, chest x-ray, EKG, ASA 324 mg by mouth. Monitor patient. 2315: Repeat EKG and troponin ordered. Patient remains pain free. Heart rate 90s on the monitor. Monitor patient. 0000: Repeat EKG shows no changes. Troponin repeated is still negative. Patient is able to drink fluids and heart rate down in the 80s now. Discharged home with return precautions. Patient verbalize understanding instructions and agreement with plan. ECG Initial ECG Impression Date: Dec 31, 2017 Initial ECG Impression Time: 20:43 Initial ECG Rate: 94 Initial ECG Rhythm: Normal Sinus Initial ECG Comparisson: Unchanged Comment Sinus rhythm with left axis deviation. No evidence of ST elevation RI. Similar to previous of 10/02/17. Interpreted by me. EKG : EKG Time: 23:16 Rate: 82 Rhythm: Normal Sinus Comment Sinus rhythm with left anterior fascicular block. Left axis deviation. Similar to previous done earlier tonight. Interpreted by me. No evidence of ST elevation RI. Diagnostic Imaging Diagonstic Imaging: Xray Plain Films/CT/US/NM/MRI: chest Comments NAME: JIMMY KNAPP [facility] REC#: [id number] PT STATUS: REG ER : 1945 PHYSICIAN: DIA ALMANZA MD ADMIT DATE: 12/31/17/ER Signed Date of Exam: 12/31/17 CHEST 1 VIEW, AP/PA ONLY Clinical indication: Patient with palpitations and weakness this evening. Exam: Portable chest x-ray semi-upright view. Comparisons: X-ray dated 10/02/2017. Findings: Lungs/pleura: There is slight increased mild bibasilar atelectasis. Otherwise, lungs are clear. There is no pneumothorax. There is no pleural effusion. Mediastinum: Unremarkable. Pulmonary vasculature: Unremarkable. Heart: Unremarkable. Bones/extrathoracic soft tissue: There are degenerative spurs involving the thoracic spine. Impression: There is slight increased mild bibasilar atelectasis. Otherwise, there is no radiographic evidence of acute cardiopulmonary process. Dictated by: Dictated on workstation # [id number] Dict: 12/31/172143 Trans: 12/31/172230 Interpreted by: SPENCER DOTSON MD Electronically signed by: SPENCER DOTSON MD 12/31/172230 Reviewed: Reviewed by Me Departure Impression Impression: Primary Impression: Heart palpitations Disposition: HOME, SELF-CARE Condition: Stable Departure-Patient Inst. Decision time for Depature: 00:07 Referrals: CHRISTEL BATISTA DO (PCP/Family) Primary Care Physician Patient Instructions: Palpitations (DC) Add. Discharge Instructions: All discharge instructions reviewed with patient and/or family. Voiced understanding. Continue home medications as directed. Follow up with your doctor on Tuesday or Tuesday for recheck and further evaluation. You may also follow up with Dr. Owusu. Call his office on Tuesday for appointment within the next week for recheck and further evaluation. Return for worse pain, fever, vomiting, weakness, breathing problems or other concerns as needed. Drink adequate amount of fluid and eat a normal diet. Copy Copies To 1: FLORESITA OWUSU MD FACP FACC CCDS Copies To 2: CHRISTEL BATISTA TIMOTHY D MD Dec 31, 2017 23:17
[2017-12-31] MEDS ORDERED: PREMARIN CREAM (23:28)
[2018-01-01 00:11] VITALS: BP 151/86
== END 2018-01-01 00:11 | disposition home or self-care (01) ==
LOC: EDUNIT# 20:34 → ER 20:35
DX: R00.2 Palpitations (principal); F41.9 Anxiety disorder, unspecified; E03.9 Hypothyroidism, unspecified; K21.9 Gastro-esophageal reflux disease without esophagitis; G62.9 Polyneuropathy, unspecified; I10 Essential (primary) hypertension; Z90.710 Acquired absence of both cervix and uterus; Z87.19 Personal history of other diseases of the digestive system; Z88.0 Allergy status to penicillin; Z88.1 Allergy status to other antibiotic agents; Z88.8 Allergy status to other drugs, medicaments and biological substances
CPT/HCPCS: 36415; 71045; 80053; 83735; 83874; 84484; 85025; 85379; 85610; 85730; 93041

== ENCOUNTER → 2018-04-13 | Outpatient (CLI) | payer MEDICARE ==
[~2018-04-13] MED LIST changes: +PREMARIN CREAM
--- NOTE | 2018-04-13 14:54 | Diagnostic Imaging Report ---
PATIENT HISTORY: LOW BACK PAIN. TECHNIQUE: Three views of the lumbar spine. COMPARISON: None. FINDINGS: There are 5 lumbar type vertebral bodies. There is mild left convex curvature of the lumbar spine centered at L3-L4. There is minimal grade 1 retrolisthesis at L2-L3 and L3-L4. Moderate degenerative changes are seen in the lumbar spine, particularly at L3-L4 and L5-S1. There is mild facet arthropathy present. There is straightening of the lumbar lordosis. The vertebral body heights are generally preserved. No acute fractures seen. There is diffuse osteopenia. The bilateral sacroiliac joints are patent. IMPRESSION: Moderate degenerative changes and mild left convex curvature of the lumbar spine with no acute osseous abnormality seen. Dictated by: Dictated on workstation # [id number]
== END ==
LOC: RAD 11:24
PROVIDERS: ATTEND Family Medicine
DX: M47.816 Spondylosis without myelopathy or radiculopathy, lumbar region (principal); M43.8X6 Other specified deforming dorsopathies, lumbar region
CPT/HCPCS: 72100

== ENCOUNTER 2018-05-09 12:35 | Outpatient (RCR) | payer MEDICARE | END 2018-05-09 17:19 | disposition home or self-care (01) | PROVIDERS: ATTEND Family Medicine | DX: M51.36 Other intervertebral disc degeneration, lumbar region (principal); N94.819 Vulvodynia, unspecified ==

== ENCOUNTER 2018-07-18 13:45 | Emergency (ER) | payer MEDICARE ==
[~2018-07-18] VITALS: Ht 175.3 cm; Wt 68.0 kg
--- OUTSIDE RECORDS SUMMARY | 2018-07-18 13:51 | XMS REPORT | Continuity of Care Document ---
Author Author [facility] Organization [facility] Address Unknown Phone Unavailable Allergies Active Description Code Type Severity Reaction Onset Reported/Identified Relationship to Patient Clinical Status Yes Penicillins [id number] Drug Allergy Moderate RASH 11/11/2012 Yes azithromycin [id number] Drug Allergy Mild NAUSEA 04/11/2013 Yes BETA BLOCKERS BETA BLOCKERS Mild DIZZY 04/11/2013 Yes gabapentin [id number] Drug Allergy Mild DIZZY 04/11/2013 Yes levofloxacin [id number] Drug Allergy Mild NAUSEA 04/11/2013 Yes temazepam [id number] Drug Allergy Unknown UNSTEADY GAIT 08/23/2016 Medications There is no data. Problems Date Dx Coded Attending Type Code Diagnosis Diagnosed By 09/29/1718 LEYLA BATISTA DO Ot 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 DISC DEGENERATION, 09/29/1718 LEYLA BATISTA DO Ot N94.819 VULVODYNIA, UNSPECIFIED 08/16/2011 Ot 276.8 08/16/2011 Ot 786.50 11/11/2012 Ot 784.7 04/11/2013 AR PRESSLEY DO Ot 785.1 05/11/2015 Ot 733.90 05/11/2015 Ot V70.3 05/11/2015 Ot V76.12 05/11/2015 Ot V76.12 05/11/2015 Ot V76.12 05/11/2015 Ot 733.90 05/11/2015 LEYLA BATISTA DO Ot 396.3 05/11/2015 LEYLA BATISTA DO Ot 785.1 05/11/2015 LEYLA BATISTA DO S Ot 786.50 05/11/2015 LEYLA BATISTA DO S Ot V76.12 05/11/2015 LEYLA BATISTA DO S Ot V76.12 05/12/2015 GISELLE PERDUE DO Ot 244.9 05/12/2015 GISELLE PERDUE DO Ot 300.00 05/12/2015 GISELLE PERDUE DO Ot 401.9 05/12/2015 GISELLE PERDUE DO Ot 780.4 09/12/2015 LEYLA BATISTA DO S Ot Z12.31 05/14/2016 DILLON RUFF, TAYLA Vail Ot R00.2 PALPITATIONS 05/17/2016 DILLON RUFF, TAYLA Vail Ot R00.2 PALPITATIONS 06/25/2016 LEYLA BATISTA DO S Ot Z12.31 ENCNTR SCREEN MAMMOGRAM FOR MALIGNANT NE 06/28/2016 AMISH YAHIR N ESCROW PROCESSOR Ot K21.9 GASTRO-ESOPHAGEAL REFLUX DISEASE WITHOUT 06/28/2016 AMISH YAHIR Pavithra ESCROW PROCESSOR Ot R10.11 RIGHT UPPER QUADRANT PAIN 06/28/2016 AMISH YAHIR N ESCROW PROCESSOR Ot R10.12 LEFT UPPER QUADRANT PAIN 06/28/2016 AMISH YAHIR Pavithra ESCROW PROCESSOR Ot R10.13 EPIGASTRIC PAIN 06/28/2016 AMISH YAHIR N ESCROW PROCESSOR Ot R19.7 DIARRHEA, UNSPECIFIED 07/20/2016 AMISH YAHIR Pavithra ESCROW PROCESSOR Ot K21.9 GASTRO-ESOPHAGEAL REFLUX DISEASE WITHOUT 07/20/2016 AMISH YAHIR Pavithra ESCROW PROCESSOR Ot R10.11 RIGHT UPPER QUADRANT PAIN 07/20/2016 AMISH YAHIR Pavithra ESCROW PROCESSOR Ot R10.12 LEFT UPPER QUADRANT PAIN 07/20/2016 AMISH YAHIR Pavithra ESCROW PROCESSOR Ot R10.13 EPIGASTRIC PAIN 07/20/2016 AMISH YAHIR N ESCROW PROCESSOR Ot R19.7 DIARRHEA, UNSPECIFIED 07/21/2016 AMISH YAHIR N ESCROW PROCESSOR Ot K21.9 GASTRO-ESOPHAGEAL REFLUX DISEASE WITHOUT 07/21/2016 AMISH YAHIR Pavithra ESCROW PROCESSOR Ot R10.11 RIGHT UPPER QUADRANT PAIN 07/21/2016 AMISH YAHIR Pavithra ESCROW PROCESSOR Ot R10.12 LEFT UPPER QUADRANT PAIN 07/21/2016 AMISH YAHIR Pavithra ESCROW PROCESSOR Ot R10.13 EPIGASTRIC PAIN 07/21/2016 AMISH YAHIR N ESCROW PROCESSOR Ot R19.7 DIARRHEA, UNSPECIFIED 08/19/2016 ELVA RUFF, DAQUAN Napier Ot K21.9 GASTRO-ESOPHAGEAL REFLUX DISEASE WITHOUT 08/19/2016 ELVA RUFF, DAQUAN Napier Ot Z01.818 ENCOUNTER FOR OTHER PREPROCEDURAL EXAMIN 08/19/2016 ELVA RUFF, DAQUAN Napire Ot Z12.11 ENCOUNTER FOR SCREENING FOR MALIGNANT NE 08/19/2016 ELVA RUFF, DAQUAN Napier Ot K21.9 GASTRO-ESOPHAGEAL REFLUX DISEASE WITHOUT 08/19/2016 ELVA RUFF, DAQUAN Napier Ot Z01.818 ENCOUNTER FOR OTHER PREPROCEDURAL EXAMIN 08/19/2016 ELVA RUFF, DAQUAN Napier Ot Z12.11 ENCOUNTER FOR SCREENING FOR MALIGNANT NE 08/23/2016 ORENDER DO, LEYLA S Ot Z12.31 ENCNTR SCREEN MAMMOGRAM FOR MALIGNANT NE 08/23/2016 YAHIR WELLINGTON N ESCROW PROCESSOR Ot K21.9 GASTRO-ESOPHAGEAL REFLUX DISEASE WITHOUT 08/23/2016 YAHIR WELLINGTON N ESCROW PROCESSOR Ot R10.11 RIGHT UPPER QUADRANT PAIN 08/23/2016 YAHIR WELLINGTON N ESCROW PROCESSOR Ot R10.12 LEFT UPPER QUADRANT PAIN 08/23/2016 YAHIR WELLINGTON N ESCROW PROCESSOR Ot R10.13 EPIGASTRIC PAIN 08/23/2016 YAHIR WELLINGTON ESCROW PROCESSOR Ot R19.7 DIARRHEA, UNSPECIFIED 08/23/2016 ELVA RUFF, DAQUAN Napier Ot K21.9 GASTRO-ESOPHAGEAL REFLUX DISEASE WITHOUT 08/23/2016 ELVA RUFF, DAQUAN Napier Ot Z01.818 ENCOUNTER FOR OTHER PREPROCEDURAL EXAMIN 08/23/2016 ELVA RUFF, DAQUAN Napier Ot Z12.11 ENCOUNTER FOR SCREENING FOR MALIGNANT NE 08/23/2016 ORENDER DO, LEYLA S Ot Z12.31 ENCNTR SCREEN MAMMOGRAM FOR MALIGNANT NE 08/23/2016 YAHIR WELLINGTON ESCROW PROCESSOR Ot K21.9 GASTRO-ESOPHAGEAL REFLUX DISEASE WITHOUT 08/23/2016 YAHIR WELLINGTON N ESCROW PROCESSOR Ot R10.11 RIGHT UPPER QUADRANT PAIN 08/23/2016 YAHIR WELLINGTON ESCROW PROCESSOR Ot R10.12 LEFT UPPER QUADRANT PAIN 08/23/2016 YAHIR WELLINGOTN N ESCROW PROCESSOR Ot R10.13 EPIGASTRIC PAIN 08/23/2016 YAHIR WELLINGTON N ESCROW PROCESSOR Ot R19.7 DIARRHEA, UNSPECIFIED 08/23/2016 ELVA RUFF, DAQUAN Napier Ot K21.9 GASTRO-ESOPHAGEAL REFLUX DISEASE WITHOUT 08/23/2016 ELVA RUFF, DAQUAN Napier Ot Z01.818 ENCOUNTER FOR OTHER PREPROCEDURAL EXAMIN 08/23/2016 ELVA RUFF, DAQUAN Napier Ot Z12.11 ENCOUNTER FOR SCREENING FOR MALIGNANT NE 08/23/2016 ELVA RUFF, DAQUAN Napier Ot K20.9 ESOPHAGITIS, UNSPECIFIED 08/23/2016 DAQUAN STEVENSON MD, Ot K25.9 GASTRIC ULCER, UNSP ACUTE OR CHRONIC, 08/23/2016 DAQUAN STEVENSON MD, Ot K57.90 DVRTCLOS OF INTEST, PART UNSP, W/O PERF 08/23/2016 DAQUAN STEVENSON MD, Ot Z12.11 ENCOUNTER FOR SCREENING FOR MALIGNANT NE 08/23/2016 DANIA FAIZA S D 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 08/23/2016 DANIA FAIZA S D E039 Hypothyroidism, unspecified 08/23/2016 DANIA FAIZA S D E559 Vitamin D deficiency, unspecified 08/23/2016 DANIA FAIZA S D E785 Hyperlipidemia, unspecified 08/23/2016 DANIA FAIZA S D E860 Dehydration 08/23/2016 DANIA FAIZA S D E872 Acidosis 08/23/2016 DANIA FAIZA S D G5793 Unspecified mononeuropathy of bilateral lower limbs 08/23/2016 DANIA FAIZA S D K219 Gastro-esophageal reflux disease without esophagitis 08/23/2016 DANIA FAIZA S D N179 Acute kidney failure, unspecified 08/23/2016 DANIA FAIZA S D R270 Ataxia, unspecified 08/23/2016 DANIA FAIZA S D R531 Weakness 08/23/2016 PAVAN NAJERAAINE S D R8271 Bacteriuria 08/23/2016 DANIA FAIZA [...] ENCOUNTER FOR SCREENING FOR MALIGNANT NE 08/26/2016 ORENDER DO, LEYLA S Ot Z12.31 ENCNTR SCREEN MAMMOGRAM FOR MALIGNANT NE 08/26/2016 ELVA RUFF, DAQUAN Napier Ot K20.9 ESOPHAGITIS, UNSPECIFIED 08/26/2016 ELVA RUFF, DAQUAN Napier Ot K25.9 GASTRIC ULCER, UNSP ACUTE OR CHRONIC, 08/26/2016 ELVA RUFF, DAQUAN Napier Ot K57.90 DVRTCLOS OF INTEST, PART UNSP, W/O PERF 08/26/2016 ELVA RUFF, DAQUAN Napier Ot Z12.11 ENCOUNTER FOR SCREENING FOR MALIGNANT NE 08/26/2016 MARILEE BATISTA DOQUELINE S Ot Z12.31 ENCNTR SCREEN MAMMOGRAM FOR MALIGNANT NE 08/27/2016 LEYLA BATISTA DO S Ot Z12.31 ENCNTR SCREEN MAMMOGRAM FOR MALIGNANT NE 09/02/2016 ELVA RUFF, DAQUAN Napier Ot K20.9 ESOPHAGITIS, UNSPECIFIED 09/02/2016 ELVA RUFF, DAQUAN Napier Ot K25.9 GASTRIC ULCER, UNSP ACUTE OR CHRONIC, 09/02/2016 ELVA RUFF, DAQUAN Napier Ot K57.90 DVRTCLOS OF INTEST, PART UNSP, W/O PERF 09/02/2016 ELVA RUFF, DAQUAN Napier Ot Z12.11 ENCOUNTER FOR SCREENING FOR MALIGNANT NE 09/06/2016 GISELLE PERDUE DO Ot R53.1 WEAKNESS 09/06/2016 GISELLE PERDUE DO Ot Z53.21 PROC/TRTMT NOT CRD OUT D/T PT LV BEF SEE 09/07/2016 GISELLE PERDUE DO Ot R53.1 WEAKNESS 09/07/2016 GISELLE PERDUE DO Ot Z53.21 PROC/TRTMT NOT CRD OUT D/T PT LV BEF SEE 09/07/2016 LEYLA BATISTA DO S Ot Z12.31 ENCNTR SCREEN MAMMOGRAM FOR MALIGNANT NE 04/06/2017 LEYLA BATISTA DO S Ot R01.1 CARDIAC MURMUR, UNSPECIFIED 04/06/2017 LEYLA BATISTA DO S Ot R01.1 CARDIAC MURMUR, UNSPECIFIED 04/06/2017 WILBER BATISTA DOLINE S Ot R01.1 CARDIAC MURMUR, UNSPECIFIED 04/06/2017 ORENDER DO, LEYLA S Ot R01.1 CARDIAC MURMUR, UNSPECIFIED 04/10/2017 SHIV MONTOYA Ot N39.0 URINARY TRACT INFECTION, SITE NOT SPECIF 04/11/2017 SHIV MONTOYA Ot N39.0 URINARY TRACT INFECTION, SITE NOT SPECIF 04/19/2017 ORENDER DO, LEYLA S Ot R00.2 PALPITATIONS 04/19/2017 ORENDER DO, LEYLA S Ot R01.1 CARDIAC MURMUR, UNSPECIFIED 04/19/2017 ORENDER DO, LEYLA S Ot R00.2 PALPITATIONS 04/19/2017 ORENDER DO, LEYLA S Ot R01.1 CARDIAC MURMUR, UNSPECIFIED 04/19/2017 ORENDER DO, LEYLA S Ot R00.2 PALPITATIONS 04/19/2017 ORENDER DO, LEYLA S Ot R01.1 CARDIAC MURMUR, UNSPECIFIED 04/19/2017 ORENDER DO, LEYLA S Ot R00.2 PALPITATIONS 04/19/2017 ORENDER DO, LEYLA S Ot R01.1 CARDIAC MURMUR, UNSPECIFIED 04/20/2017 ORENDER DO, LEYLA S Ot R01.1 CARDIAC MURMUR, UNSPECIFIED 04/21/2017 ORENDER DO, LEYLA S Ot R01.1 CARDIAC MURMUR, UNSPECIFIED 04/26/2017 ORENDER DO, LEYLA S Ot R01.1 CARDIAC MURMUR, UNSPECIFIED 04/26/2017 ORENDER DO, LEYLA S Ot Z79.899 OTHER HALF-WAY (CURRENT) DRUG THERAPY 04/27/2017 ORENDER DO, LEYLA S Ot G57.90 UNSPECIFIED MONONEUROPATHY OF UNSPECIFIE 05/04/2017 SHIV MONTOYA Ot N39.0 URINARY TRACT INFECTION, SITE NOT SPECIF 05/19/2017 ORENDER DO, LEYLA S Ot R01.1 CARDIAC MURMUR, UNSPECIFIED 05/19/2017 ORENDER DO, LEYLA S Ot Z79.899 OTHER HALF-WAY (CURRENT) DRUG THERAPY 05/23/2017 ORENDER DO, LEYLA S Ot G57.90 UNSPECIFIED MONONEUROPATHY OF UNSPECIFIE 05/27/2017 ORENDER DO, LEYLA S Ot R01.1 CARDIAC MURMUR, UNSPECIFIED 05/27/2017 LEYLA BATISTA DO Ot Z79.899 OTHER HALF-WAY (CURRENT) DRUG THERAPY 05/27/2017 LEYLA BATISTA DO Ot G57.90 UNSPECIFIED MONONEUROPATHY OF UNSPECIFIE 05/31/2017 LEYLA BATISTA DO Ot G57.90 UNSPECIFIED MONONEUROPATHY OF UNSPECIFIE 06/13/2017 CHLOE RUFF [facility] CCDS Ot I47.1 SUPRAVENTRICULAR TACHYCARDIA 06/14/2017 CHLOE RUFF [facility] CCDS Ot I47.1 SUPRAVENTRICULAR TACHYCARDIA 10/03/2017 NETTE ARNETT GISELLE K Ot E03.9 HYPOTHYROIDISM, UNSPECIFIED 10/03/2017 NETTE GISELLE K Ot E86.0 DEHYDRATION 10/03/2017 NETTE IGSELLE K Ot F41.9 ANXIETY DISORDER, UNSPECIFIED 10/03/2017 NETTE GISELLE K Ot I10 ESSENTIAL (PRIMARY) HYPERTENSION 10/03/2017 NETTE GISELLE K Ot K21.9 GASTRO-ESOPHAGEAL REFLUX DISEASE WITHOUT 10/03/2017 NETTE , GISELLE K Ot N28.9 DISORDER OF KIDNEY AND URETER, UNSPECIFI 10/03/2017 NETTE GISELLE K Ot N39.0 URINARY TRACT INFECTION, SITE NOT SPECIF 10/03/2017 NETTE ARNETT GISELLE K Ot R53.1 WEAKNESS 10/03/2017 NETTE DO GISELLE K Ot Z86.010 PERSONAL HISTORY OF COLONIC POLYPS 10/03/2017 NETTE GISELLE K Ot Z87.19 PERSONAL HISTORY OF OTHER DISEASES OF TH 10/03/2017 NETTE ARNETT GISELLE K Ot Z90.710 ACQUIRED ABSENCE OF BOTH CERVIX AND UTER 01/01/2018 DIA ALMANZA MD Ot E03.9 HYPOTHYROIDISM, UNSPECIFIED 01/01/2018 DIA ALMANZA MD, Ot F41.9 ANXIETY DISORDER, UNSPECIFIED 01/01/2018 DIA ALMANZA MD, Ot G62.9 POLYNEUROPATHY, UNSPECIFIED 01/01/2018 DIA ALMANZA MD Ot I10 ESSENTIAL (PRIMARY) HYPERTENSION 01/01/2018 ROBINSON MD, DIA D Ot K21.9 GASTRO-ESOPHAGEAL REFLUX DISEASE WITHOUT 01/01/2018 DIA ALMANZA MD Ot R00.2 PALPITATIONS 01/01/2018 DIA ALMANZA MD Ot Z87.19 PERSONAL HISTORY OF OTHER DISEASES OF TH 01/01/2018 DIA ALMANZA MD, Ot Z88.0 ALLERGY STATUS TO PENICILLIN 01/01/2018 DIA ALMANZA MD, Ot Z88.1 ALLERGY STATUS TO OTHER ANTIBIOTIC AGENT 01/01/2018 DIA ALMANZA MD, Ot Z88.8 ALLERGY STATUS TO OTH DRUG/MEDS/BIOL SUB 01/01/2018 DIA ALMANZA MD Ot Z90.710 ACQUIRED ABSENCE OF BOTH CERVIX AND UTER 04/14/2018 ORENDER DO, LEYLA S Ot 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31 ENCNTR SCREEN MAMMOGRAM FOR MALIGNANT NE 05/12/2018 YAHIR WELLINGTON ESCROW PROCESSOR Ot K21.9 GASTRO-ESOPHAGEAL REFLUX DISEASE WITHOUT 05/12/2018 YAHIR WELLINGTON ESCROW PROCESSOR Ot R10.11 RIGHT UPPER QUADRANT PAIN 05/12/2018 YAHIR WELLINGTON ESCROW PROCESSOR Ot R10.12 LEFT UPPER QUADRANT PAIN 05/12/2018 YAHIR WELLINGTON ESCROW PROCESSOR Ot R10.13 EPIGASTRIC PAIN 05/12/2018 YAHIR WELLINGTON APRN Ot R19.7 DIARRHEA, UNSPECIFIED 05/12/2018 ELVA RUFF, DAQUAN Napier Ot K21.9 GASTRO-ESOPHAGEAL REFLUX DISEASE WITHOUT 05/12/2018 ELVA RUFF, DAQUAN Napier Ot Z01.818 ENCOUNTER FOR OTHER PREPROCEDURAL EXAMIN 05/12/2018 ELVA RUFF, DAQUAN Napier Ot Z12.11 ENCOUNTER FOR SCREENING FOR MALIGNANT NE 05/12/2018 ORENDER DO, LEYLA S Ot Z12.31 ENCNTR SCREEN MAMMOGRAM FOR MALIGNANT NE 05/12/2018 JETTNDER DO, LEYLA S Ot R01.1 CARDIAC MURMUR, UNSPECIFIED 05/12/2018 ORENDER DO, LEYLA S Ot Z79.899 OTHER HALF-WAY (CURRENT) DRUG THERAPY 05/12/2018 SHIV MONTOYA Ot N39.0 URINARY TRACT INFECTION, SITE NOT SPECIF 05/12/2018 CHLOE RUFF FACC, [facility]OR[facility] [place] CCDS Ot I47.1 SUPRAVENTRICULAR TACHYCARDIA 05/12/2018 JETTNDER DO, LEYLA S Ot 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, 05/12/2018 JETTNDER DO, LEYLA S Ot M47.816 SPONDYLOSIS W/O MYELOPATHY OR RADICULOPA 05/12/2018 JETTNDER DO, LEYLA S Ot 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 DISC DEGENERATION, 05/12/2018 JETTNDCHAS ARNETT, LEYLA S Ot N94.819 VULVODYNIA, UNSPECIFIED Procedures Code Description [place] [address] 08/13/2016 54159 08/13/2016 41794 08/13/2016 58809 08/13/2016 49156 08/13/2016 48316 08/13/2016 30091 08/13/2016 09823 08/13/2016 96945 08/13/2016 78370 08/13/2016 55495 08/13/2016 79415 08/13/2016 44706 08/13/2016 14227 08/13/2016 87262 08/13/2016 65383 08/13/2016 86441 08/13/2016 22231 08/13/2016 49254 08/13/2016 10918 08/13/2016 G0378 08/13/2016 G0479 08/13/2016 J0696 08/13/2016 65033 08/14/2016 60467 08/14/2016 76056 08/14/2016 43464 08/14/2016 G0378 08/14/2016 Results Test Result Range Complete blood count (CBC) with automated white blood cell (WBC) differential - 10/02/17 22:40 Blood leukocytes automated count (number/volume) 10.4 10*3/uL 4.3-11.0 Blood erythrocytes automated count (number/volume) 4.52 10*6/uL 4.35-5.85 Venous blood hemoglobin measurement (mass/volume) 14.4 g/dL 11.5-16.0 Blood hematocrit (volume fraction) 42 % 35-52 Automated erythrocyte mean corpuscular volume 93 [foz_us] 80-99 Automated erythrocyte mean corpuscular hemoglobin (mass per erythrocyte) 32 pg 25-34 Automated erythrocyte mean corpuscular hemoglobin concentration measurement ( mass/volume) 34 g/dL 32-36 Automated erythrocyte distribution width ratio 13.2 % 10.0-14.5 Automated blood platelet count (count/volume) 350 10*3/uL 130-400 Automated blood platelet mean volume measurement 10.5 [foz_us] 7.4-10.4 Automated blood neutrophils/100 leukocytes 53 % 42-75 Automated blood lymphocytes/100 leukocytes 30 % 12-44 Blood monocytes/100 leukocytes 10 % 0-12 Automated blood eosinophils/100 leukocytes 7 % 0-10 Automated blood basophils/100 leukocytes 1 % 0-10 Blood neutrophils automated count (number/volume) 5.5 10*3 1.8-7.8 Blood lymphocytes automated count (number/volume) 3.1 10*3 1.0-4.0 Blood monocytes automated count (number/volume) 1.0 10*3 0.0-1.0 Automated eosinophil count 0.7 10*3/uL 0.0-0.3 Automated blood basophil count (count/volume) 0.1 10*3/uL 0.0-0.1 Blood lactic acid measurement (moles/volume) - 10/02/17 22:40 Blood lactic acid measurement (moles/volume) 2.37 mmol/L 0.50-2.00 PT panel in platelet poor plasma by coagulation assay - 10/02/17 22:40 Prothrombin time (PT) in platelet poor plasma by coagulation assay 12.7 s 12.2-14.7 INR in platelet poor plasma or blood by coagulation assay 0.9 0.8-1.4 Activated partial thromboplastin time (aPTT) in platelet poor plasma bycoagulation assay - 10/02/17 22:40 Activated partial thromboplastin time (aPTT) in platelet poor plasma bycoagulation assay 27 s 24-35 Comprehensive metabolic panel - 10/02/17 22:40 Serum or plasma sodium measurement (moles/volume) 139 mmol/L 135-145 Serum or plasma potassium measurement (moles/volume) 3.6 mmol/L 3.6-5.0 Serum or plasma chloride measurement (moles/volume) 104 mmol/L 98-107 Carbon dioxide 25 mmol/L 21-32 Serum or plasma anion gap determination (moles/volume) 10 mmol/L 5-14 Serum or plasma urea nitrogen measurement (mass/volume) 18 mg/dL 7-18 Serum or plasma creatinine measurement (mass/volume) 1.38 mg/dL 0.60-1.30 Serum or plasma urea nitrogen/creatinine mass ratio 13 NRG Serum or plasma creatinine measurement with calculation of estimated glomerular filtration rate 37 NRG Serum or plasma glucose measurement (mass/volume) 98 mg/dL 70-105 Serum or plasma calcium measurement (mass/volume) 10.0 mg/dL 8.5-10.1 Serum or plasma total bilirubin measurement (mass/volume) 0.5 mg/dL 0.1-1.0 Serum or plasma alkaline phosphatase measurement (enzymatic activity/volume) 51 U/L 40-136 Serum or plasma aspartate aminotransferase measurement (enzymatic activity/ volume) 23 U/L 5-34 Serum or plasma alanine aminotransferase measurement (enzymatic activity/volume ) 14 U/L 0-55 Serum or plasma protein measurement (mass/volume) 8.2 g/dL 6.4-8.2 Serum or plasma albumin measurement (mass/volume) 4.3 g/dL 3.2-4.5 Magnesium - 10/02/17 22:40 Magnesium 2.2 mg/dL 1.8-2.4 Serum or plasma troponin i.cardiac measurement (mass/volume) - 10/02/17 22:40 Serum or plasma troponin i.cardiac measurement (mass/volume) < ng/ mL <0.30 Serum or plasma lithium measurement (moles/volume) - 10/02/17 22:40 BNP level 49.9 pg/mL <100.0 Serum or plasma thyroxine (T4) free measurement (mass/volume) - 10/02/17 22:40 Serum or plasma thyroxine (T4) free measurement (mass/volume) 1.19 ng/dL 0.70-1.48 Serum or plasma thyrotropin measurement by detection limit <=0.05 miu/l (units/ volume) - 10/02/17 22:40 Serum or plasma thyrotropin measurement by detection limit <=0.05 miu/l (units/ volume) 6.05 u[iU]/mL 0.35-4.94 Complete urinalysis with reflex to culture - 10/02/17 23:20 Urine color determination YELLOW NRG Urine clarity determination CLEAR NRG Urine pH measurement by test strip 6 5-9 Specific gravity of urine by test strip 1.015 1.016- 1.022 Urine protein assay by test strip, semi-quantitative NEGATIVE NEGATIVE Urine glucose detection by automated test strip NEGATIVE NEGATIVE Erythrocytes detection in urine sediment by light microscopy NEGATIVE NEGATIVE Urine ketones detection by automated test strip NEGATIVE NEGATIVE Urine nitrite detection by test strip NEGATIVE NEGATIVE Urine total bilirubin detection by test strip NEGATIVE NEGATIVE Urine urobilinogen measurement by automated test strip (mass/volume) NORMAL NORMAL Urine leukocyte esterase detection by dipstick NEGATIVE NEGATIVE Automated urine sediment erythrocyte count by microscopy (number/high power field) NONE NRG Automated urine sediment leukocyte count by microscopy (number/high power field ) NONE NRG Bacteria detection in urine sediment by light microscopy TRACE NRG Squamous epithelial cells detection in urine sediment by light microscopy 5-10 NRG Crystals detection in urine sediment by light microscopy NONE NRG Casts detection in urine sediment by light microscopy NONE NRG Mucus detection in urine sediment by light microscopy SMALL NRG Complete urinalysis with reflex to culture NO NRG Bacterial blood culture - 10/02/17 23:35 Bacterial blood culture NG NRG Bacterial blood culture - 10/02/17 23:45 Bacterial blood culture NG NRG Complete blood count (CBC) with automated white blood cell (WBC) differential - 12/31/17 20:58 Blood leukocytes automated count (number/volume) 8.5 10*3/uL 4.3-11.0 Blood erythrocytes automated count (number/volume) 4.30 10*6/uL 4.35-5.85 Venous blood hemoglobin measurement (mass/volume) 14.0 g/dL 11.5-16.0 Blood hematocrit (volume fraction) 40 % 35-52 Automated erythrocyte mean corpuscular volume 94 [foz_us] 80-99 Automated erythrocyte mean corpuscular hemoglobin (mass per erythrocyte) 33 pg 25-34 Automated erythrocyte mean corpuscular hemoglobin concentration measurement ( mass/volume) 35 g/dL 32-36 Automated erythrocyte distribution width ratio 13.0 % 10.0-14.5 Automated blood platelet count (count/volume) 276 10*3/uL 130-400 Automated blood platelet mean volume measurement 10.9 [foz_us] 7.4-10.4 Automated blood neutrophils/100 leukocytes 50 % 42-75 Automated blood lymphocytes/100 leukocytes 33 % 12-44 Blood monocytes/100 leukocytes 9 % 0-12 Automated blood eosinophils/100 leukocytes 7 % 0-10 Automated blood basophils/100 leukocytes 1 % 0-10 Blood neutrophils automated count (number/volume) 4.2 10*3 1.8-7.8 Blood lymphocytes automated count (number/volume) 2.8 10*3 1.0-4.0 Blood monocytes automated count (number/volume) 0.8 10*3 0.0-1.0 Automated eosinophil count 0.6 10*3/uL 0.0-0.3 Automated blood basophil count (count/volume) 0.1 10*3/uL 0.0-0.1 Comprehensive metabolic panel - 12/31/17 20:58 Serum or plasma sodium measurement (moles/volume) 141 mmol/L 135-145 Serum or plasma potassium measurement (moles/volume) 3.7 mmol/L 3.6-5.0 Serum or plasma chloride measurement (moles/volume) 107 mmol/L 98-107 Carbon dioxide 24 mmol/L 21-32 Serum or plasma anion gap determination (moles/volume) 10 mmol/L 5-14 Serum or plasma urea nitrogen measurement (mass/volume) 16 mg/dL 7-18 Serum or plasma creatinine measurement (mass/volume) 1.02 mg/dL 0.60-1.30 Serum or plasma urea nitrogen/creatinine mass ratio 16 NRG Serum or plasma creatinine measurement with calculation of estimated glomerular filtration rate 53 NRG Serum or plasma glucose measurement (mass/volume) 119 mg/dL 70-105 Serum or plasma calcium measurement (mass/volume) 9.4 mg/dL 8.5-10.1 Serum or plasma total bilirubin measurement (mass/volume) 0.3 mg/dL 0.1-1.0 Serum or plasma alkaline phosphatase measurement (enzymatic activity/volume) 53 U/L 40-136 Serum or plasma aspartate aminotransferase measurement (enzymatic activity/ volume) 22 U/L 5-34 Serum or plasma alanine aminotransferase measurement (enzymatic activity/volume ) 18 U/L 0-55 Serum or plasma protein measurement (mass/volume) 7.4 g/dL 6.4-8.2 Serum or plasma albumin measurement (mass/volume) 4.1 g/dL 3.2-4.5 Magnesium - 12/31/17 20:58 Magnesium 2.3 mg/dL 1.8-2.4 PT panel in platelet poor plasma by coagulation assay - 12/31/17 20:58 Prothrombin time (PT) in platelet poor plasma by coagulation assay 13.0 s 12.2-14.7 INR in platelet poor plasma or blood by coagulation assay 1.0 0.8-1.4 Activated partial thromboplastin time (aPTT) in platelet poor plasma bycoagulation assay - 12/31/17 20:58 Activated partial thromboplastin time (aPTT) in platelet poor plasma bycoagulation assay 32 s 24-35 Fibrin D-dimer FEU measurement in platelet poor plasma (mass/volume) - 20:58 Fibrin D-dimer FEU measurement in platelet poor plasma (mass/volume) 0.33 ug/mL 0.00-0.49 Serum or plasma troponin i.cardiac measurement (mass/volume) - 12/31/17 20:58 Serum or plasma troponin i.cardiac measurement (mass/volume) < ng/ mL <0.30 Myoglobin, serum - 12/31/17 20:58 Myoglobin, serum 48.7 ng/mL 10.0-92.0 Serum or plasma troponin i.cardiac measurement (mass/volume) - 12/31/17 23:14 Serum or plasma troponin i.cardiac measurement (mass/volume) < ng/ mL <0.30 Encounters ACCT No. Visit Date/Time Discharge Status Pt. Type Provider Facility Loc./Unit Complaint [id number] 08/13/2016 23:26:00 08/14/2016 12:43:31 DIS Outpatient RUSIN, FAIZA S <PV2.3.2>Weakness</PV2.3.2><PV2.3.2>PNEUMONIA, WEAKNESS</ PV2.3.2><PV2.3.2>Dehydration</PV2.3.2><PV2.3.2>Acute kidney failure, unspecified </PV2.3.2><PV2.3.2>Weakness</PV2.3.2><PV2.3.2>Other nonspecific abnormal finding of lung field</PV2.3.2><PV2.3.2>Ataxia, unspecified</PV2.3.2><PV2.3.2> Bacteriuria</PV2.3.2><PV2.3.2>Acidosis</PV2.3.2><PV2.3.2>Hypothyroidism, unspecified</PV2.3.2><PV2.3.2>Hyperlipidemia, unspecified</PV2.3.2><PV2.3.2> Gastro-esophageal reflux disease without esophagitis</PV2.3.2><PV2.3.2>Vitamin D deficiency, unspecified</PV2.3.2><PV2.3.2>Unspecified mononeuropathy of bilateral lower limbs</PV2.3.2><PV2.3.2>Personal history of tuberculosis</ PV2.3.2><PV2.3.2>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 [id number] 05/09/2018 12:35:00 05/09/2018 17:19:00 DIS Outpatient LEYLA BATISTA DO [facility] REHAB LUMBAR DDD; VULVODYNIA PELVIC FLOOR DYSFUNCTION [id number] 04/13/2018 11:24:00 04/13/2018 23:59:59 CLS Outpatient LEYLA BATISTA DO [facility] RAD LOW BACK PAIN [id number] 12/31/2017 20:35:00 01/01/2018 00:11:00 DIS Emergency ARCHIE RUFF, DIA Tillman [facility] ER IRREGULAR HEART BEAT [id number] 10/02/2017 22:08:00 10/03/2017 00:29:00 DIS Emergency NETTE GISELLE ARNETT [facility] ER SWEATS WEAK [id number] 06/14/2017 10:07:00 06/14/2017 23:59:59 CLS Outpatient CHLOE RUFF FACCFLORESITA FACP CCDS [facility] CARD I47.1 [id number] 05/31/2017 13:45:00 05/31/2017 16:46:00 DIS Outpatient JETTNDER DO LEYLA S [facility] REHAB NEUROPATHY OF LEGS/FEET [id number] 04/19/2017 11:16:00 04/19/2017 23:59:59 CLS Outpatient LESTER ARNETT LEYLA S [facility] CARD CARDIAC MURMUR [id number] 04/09/2017 18:45:00 04/09/2017 23:59:59 CLS Outpatient SHIV MONTOYA FISH BIN TENDER [facility] LAB VAGINAL IRRITATION [id number] 04/06/2017 12:46:00 04/06/2017 23:59:59 CLS Preadmit LESTER ARNETT LEYLA S [facility] CARD CARDIAC MURMUR [id number] 09/06/2016 18:05:00 09/06/2016 18:54:00 DIS Emergency NETTE GISELLE ARNETT [facility] ER WEAKNESS EPISODE [id number] 08/26/2016 07:10:00 08/26/2016 23:59:59 CLS Outpatient DAYNAER DO LEYLA S [facility] RAD SCREENING [id number] 08/23/2016 06:50:00 08/23/2016 10:00:00 DIS Outpatient DAQUAN STEVENSON MD [facility] SDC SCREENING;GERD [id number] 08/19/2016 05:59:00 08/19/2016 23:59:59 CLS Outpatient DAQUAN STEVENSON MD [facility] PREOP SCREENING, GERD [id number] 06/25/2016 07:42:00 06/25/2016 23:59:59 CLS Outpatient YAHIR WELLINGTON APRN [facility] RAD BILATERAL UPPER QUADRENT PAIN [id number] 05/14/2016 14:18:00 05/14/2016 16:20:00 DIS Emergency TAYLA CARRANZA MD [facility] ER IRR HEART RATE [id number] 08/22/2015 07:20:00 08/22/2015 23:59:59 CLS Outpatient ORENDER DO, LEYLA S [facility] RAD SCREENING [id number] 05/11/2015 22:42:00 05/12/2015 01:08:00 DIS Emergency NETTEGISELLE Hardwick DO K [facility] ER [id number] 07/25/2014 07:44:00 07/25/2014 23:59:59 CLS Outpatient ORENDER DO LEYLA S [facility] RAD [id number] 04/30/2014 12:00:00 04/30/2014 23:59:59 CLS Outpatient [id number] 07/17/2013 06:53:00 07/17/2013 23:59:59 CLS Outpatient ORENDER DO, LEYLA S [facility] RAD [id number] 04/17/2013 08:58:00 04/17/2013 23:59:59 CLS Outpatient ORENDER DO, LEYLA S [facility] CARD [id number] 04/11/2013 13:41:00 04/11/2013 16:34:00 DIS Emergency AR PRESSLEY DO [facility] ER [id number] 12/01/2012 10:23:00 Document Registration [id number] 11/11/2012 13:12:00 Document Registration [id number] 07/14/2012 07:02:00 Document Registration [id number] 08/16/2011 10:25:00 Document Registration [id number] 07/13/2011 07:08:00 Document Registration [id number] 07/02/2010 08:40:00 Document Registration 04/25/11 07/06/2018 15:32:49 07/06/2018 23:59:59 CLS Outpatient Jettnder, Leyla S.
[2018-07-18 14:27] LABS: BASOPHILS # (AUTO) 0.1 10^3/uL (0.0-0.1); BASOPHILS % (AUTO) 1 % (0-10); EOSINOPHILS # (AUTO) 0.2 10^3/uL (0.0-0.3); EOSINOPHILS % (AUTO) 2 % (0-10); HEMATOCRIT 41 % (35-52); HEMOGLOBIN 14.6 G/DL (11.5-16.0); LYMPHOCYTES % (AUTO) 22 % (12-44); MEAN CORPUSCULAR HEMOGLOBIN 33 PG (25-34); MEAN CORPUSCULAR HGB CONC 36 G/DL (32-36); MEAN CORPUSCULAR VOLUME 92 FL (80-99); MEAN PLATELET VOLUME 10.3 FL (7.4-10.4); MONOCYTES # (AUTO) 0.7 X 10^3 (0.0-1.0); MONOCYTES % (AUTO) 8 % (0-12); NEUTROPHILS # (AUTO) 6.2 X 10^3 (1.8-7.8); NEUTROPHILS % (AUTO) 68 % (42-75); PLATELET COUNT 311 10^3/uL (130-400); RED BLOOD COUNT 4.44 10^6/uL (4.35-5.85); RED CELL DISTRIBUTION WIDTH 13.2 % (10.0-14.5); WHITE BLOOD COUNT 9.1 10^3/uL (4.3-11.0)
--- NOTE | 2018-07-18 14:28 | ED Cardiac General ---
History of Present Illness General Chief Complaint: Cardiac/General Problems Stated Complaint: IRREGULAR HEART BEAT Nursing Triage Note: AMB TO ROOM HAS PMH OF IRREGULAR HR, BUT WILL GO AWAY TODAY IT STARTED THIS AM AND HAS CON'T NO PAIN OR SOA WITH IT Source: patient Exam Limitations: no limitations (TARA SOMERS MED STUDENT) History of Present Illness Date Seen by Provider: Jul 18, 2018 Time Seen by Provider: 14:20 Initial Comments Patient is a 73 year old female who presents to the ED with concern of skipped heart beats since this morning. Patient states that she has a long history of palpitations that are exacerbated by caffeine and exercise that usually subside after rest and some Tylenol. She does not have formal diagnosis of any arrhythmia and does not take a blood thinner. She is concerned about this episode as it has been persistent since this morning. She denies any lightheadedness, headache, or changes in vision. Patient does have a history of hypothyroidism for which she takes levothyroxine. Timing/Duration: 4-6 hours Severity: mild Activities at Onset: activity Prior CP/Workup: stress test Modifying Factors: worse with exercise Associated Systoms: No Chest Pain, No Headaches, No Nausea/Vomiting, No Shortness of Air, No Syncope (TARA SOMERS MED STUDENT) Allergies and Home Medications Allergies Coded Allergies: Penicillins (Verified Allergy, Intermediate, RASH, 11/11/12) azithromycin (Verified Adverse Reaction, Mild, NAUSEA, 04/11/13) gabapentin (Verified Adverse Reaction, Mild, DIZZY, 04/11/13) levofloxacin (Verified Adverse Reaction, Mild, NAUSEA, 04/11/13) temazepam (Verified Adverse Reaction, Unknown, UNSTEADY GAIT, 08/23/16) Uncoded Allergies: BETA BLOCKERS (Adverse Reaction, Mild, DIZZY, 04/11/13) Home Medications Acetaminophen 500 Mg Tablet, 500 MG PO Q4H PRN, (Reported) Cholecalciferol 1,000 Unit Tab, 1,000 UNIT PO DAILY, (Reported) Pantoprazole Sodium 40 Mg Tablet.dr, 40 MG PO DAILY Prescribed by: DAQUAN STEVENSON on 08/23/16 0854 Polyethylene Glycol 119 Gm Btl, 0 PO DAILY, (Reported) 17 GM Patient Home Medication List Home Medication List Reviewed: Yes (ALFREDO WOLF MD) Review of Systems Review of Systems Constitutional: No dizziness EENTM: No Blurred Vision, No Double Vision Respiratory: Denies Shortness of Air Cardiovascular: Denies Chest Pain; Irregular Heart Rate; Denies Lightheadedness ; Palpitations; Denies Syncope Gastrointestinal: Denies Abdominal Pain, Denies Nausea, Denies Vomiting Genitourinary: No Symptoms Reported Musculoskeletal: no symptoms reported Skin: no symptoms reported Psychiatric/Neurological: Denies Anxiety, Denies Headache, Denies Weakness Endocrine: No Symptoms Reported Hematologic/Lymphatic: No Symptoms Reported (TARA SOMERS) Past Hftjsbi-[id number]-Xnwwwz Hx Patient Social History Alcohol Use: Denies Use Recreational Drug Use: No Smoking Status: Never a Smoker 2nd Hand Smoke Exposure: No Recent Foreign Travel: No Contact w/Someone Who Travel: No Recent Infectious Disease Expo: No Recent Hopitalizations: No (ER-IN [facility] 08/14/16) (TARA SOMERS) Immunizations Up To Date Tetanus Booster (TDap): Unknown Date of Pneumonia Vaccine: Aug 31, 1998 Date of Influenza Vaccine: Jul 31, 2012 (TARA SOMERS) Seasonal Allergies Seasonal Allergies: No (TAAR SOMERS) Past Medical History Surgeries: Yes (EYE, TEETH, EGD/COLONOSCOPIES, BUNIONECTOMY,) Eye Surgery, Hysterectomy, Orthopedic Respiratory: No Cardiac: Yes Hypertension, Palpitations Neurological: Yes Neuropathy, Vertigo Reproductive Disorders: No SACK SEWER History: Hysterectomy, Menopausal Genitourinary: Yes UTI-Chronic Gastrointestinal: Yes Gastroesophageal Reflux, Polyps, Esophagitis, Ulcer Musculoskeletal: No Endocrine: Yes Hypothyroidsim HEENT: Yes Cataract Cancer: No Psychosocial: Yes Anxiety Integumentary: No Blood Disorders: No (TARA SOMERS) Family Medical History No Pertinent Family Hx (TARA SOMERS) Physical Exam Vital Signs Vital Signs - First Documented 07/18/18 13:54 Temp 98.0 Pulse 77 Resp 18 B/P (MAP) 143/86 (105) Pulse Ox 98 O2 Delivery Room Air (ALFREDO WOLF MD) Vital Signs Capillary Refill : Less Than 3 Seconds (TARA SOMERS) Height, Weight, BMI Height: 5'9.00" Weight: 150lbs. 0oz. 68.195619pm; 21.4 BMI Method:Stated (ALLEN,TARA M MED STUDENT) General Appearance: No Apparent Distress, WD/WN HEENT: Other (Strabismus) Neck: Normal Inspection Respiratory: Lungs Clear, Normal Breath Sounds, No Accessory Muscle Use, No Respiratory Distress Cardiovascular: Regular Rate, Rhythm, No Edema, No Murmur Extremity: Normal Inspection, No Pedal Edema Neurologic/Psychiatric: Alert, Oriented x3, No Motor/Sensory Deficits, Normal Mood/Affect, car lubricator II-XII Norm as Tested Skin: Normal Color, Warm/Dry (ALFREDO WOLF MD) Progress/Results/Core Measures Results/Orders Lab Results Laboratory Tests Test 07/18/18 14:09 07/18/18 15:25 Range/Units White Blood Count 9.1 4.3-11.0 10^3/uL Red Blood Count 4.44 4.35-5.85 10^6/uL Hemoglobin 14.6 11.5-16.0 G/DL Hematocrit 41 35-52 % Mean Corpuscular Volume 92 80-99 FL Mean Corpuscular Hemoglobin 33 25-34 PG Mean Corpuscular Hemoglobin Concent 36 32-36 G/DL Red Cell Distribution Width 13.2 10.0-14.5 % Platelet Count 311 130-400 10^3/uL Mean Platelet Volume 10.3 7.4-10.4 FL Neutrophils (%) (Auto) 68 42-75 % Lymphocytes (%) (Auto) 22 12-44 % Monocytes (%) (Auto) 8 0-12 % Eosinophils (%) (Auto) 2 0-10 % Basophils (%) (Auto) 1 0-10 % Neutrophils # (Auto) 6.2 1.8-7.8 X 10^3 Lymphocytes # (Auto) 2.0 1.0-4.0 X 10^3 Monocytes # (Auto) 0.7 0.0-1.0 X 10^3 Eosinophils # (Auto) 0.2 0.0-0.3 10^3/uL Basophils # (Auto) 0.1 0.0-0.1 10^3/uL Sodium Level 140 135-145 MMOL/L Potassium Level 3.7 3.6-5.0 MMOL/L Chloride Level 104 98-107 MMOL/L Carbon Dioxide Level 26 21-32 MMOL/L Anion Gap 10 5-14 MMOL/L Blood Urea Nitrogen 16 7-18 MG/DL Creatinine 1.00 0.60-1.30 MG/DL Estimat Glomerular Filtration Rate 54 BUN/Creatinine Ratio 16 Glucose Level 91 70-105 MG/DL Calcium Level 9.8 8.5-10.1 MG/DL Corrected Calcium 9.5 8.5-10.1 MG/DL Magnesium Level 2.3 1.8-2.4 MG/DL Total Bilirubin 0.5 0.1-1.0 MG/DL Aspartate Amino Transf (AST/SGOT) 22 5-34 U/L Alanine Aminotransferase (ALT/SGPT) 18 0-55 U/L Alkaline Phosphatase 57 40-136 U/L Troponin I < 0.30 <0.30 NG/ML Total Protein 7.9 6.4-8.2 GM/DL Albumin 4.4 3.2-4.5 GM/DL Thyroid Stimulating Hormone (TSH) 3.37 0.35-4.94 UIU/ML Free Thyroxine 1.27 0.70-1.48 NG/DL Urine Color YELLOW Urine Clarity SLIGHTLY CLOUDY Urine pH 6.5 5-9 Urine Specific [place] 1.010 L 1.016-1.022 Urine Protein NEGATIVE NEGATIVE Urine Glucose (UA) NEGATIVE NEGATIVE Urine Ketones NEGATIVE NEGATIVE Urine Nitrite NEGATIVE NEGATIVE Urine Bilirubin NEGATIVE NEGATIVE Urine Urobilinogen NORMAL NORMAL MG/DL Urine Leukocyte Esterase 1+ H NEGATIVE Urine RBC (Auto) NEGATIVE NEGATIVE Urine RBC NONE /HPF Urine WBC 0-2 /HPF Urine Squamous Epithelial Cells 2-5 /HPF Urine Crystals PRESENT H /LPF Urine Amorphous Sediment RARE PAO URATES H /LPF Urine Bacteria NONE /HPF Urine Casts NONE /LPF Urine Mucus NEGATIVE /LPF Urine Culture Indicated NO (ALFREDO WOLF MD) My Orders Orders - ALFREDO WOLF MD Ekg Tracing (07/18/18 13:53) Cbc With Automated Diff (07/18/18 14:02) Comprehensive Metabolic Panel (07/18/18 14:02) Magnesium (07/18/18 14:02) Ua Culture If Indicated (07/18/18 14:02) Troponin I (07/18/18 14:02) Free T4 (Free Thyroxine) (07/18/18 14:09) Thyroid Stimulating Hormone (07/18/18 14:09) (ALFREDO WOLF MD) Vital Signs/I&O 07/18/18 07/18/18 13:54 16:30 Temp 98.0 Pulse 77 80 Resp 18 18 B/P (MAP) 143/86 (105) 150/95 Pulse Ox 98 95 O2 Delivery Room Air (ALFREDO WOLF MD) Blood Pressure Mean: 105 Progress Progress Note : Progress Note This patient was seen and interviewed along with Tara Somers, MS4. I agree with her story, documentation, assessment, and plan with the following additions. Patient's palpitations resolved during her stay. She showed no significant rhythm abnormalities on EKG or cardiac monitoring. Workup was grossly unremarkable. Patient wonders if her symptoms may be do to recent initiation of topical hormone therapy for vaginitis. She has had palpitations with prior oral hormone replacement therapy. She was dismissed home in improved condition. (ALFREDO WOLF MD) Initial ECG Impression Date: Jul 18, 2018 Initial ECG Impression Time: 13:58 Initial ECG Rate: 87 Initial ECG Rhythm: Normal Sinus Comment Normal sinus rhythm with no ST elevation or depression. One PAC noted. No significant changes in axis or intervals. (ALFREDO WOLF MD) Departure Impression Primary Impression: Palpitations Disposition: 01 HOME, SELF-CARE Condition: Improved Departure-Patient Inst. Decision time for Depature: 16:23 (ALFREDO WOLF MD) Referrals: CHRISTEL BATISTA DO (PCP) Primary Care Physician Patient Instructions: Palpitations (DC) Add. Discharge Instructions: Avoid any known triggers for palpitations. If you have worsening symptoms or if your palpitations become accompanied by other symptoms such as chest pain, shortness of breath, dizziness, fever, etc., then please return to care. Please follow-up with your primary care provider in the near future. All discharge instructions reviewed with patient and/or family. Voiced understanding. Copy Copies To 1: CHRISTEL BATISTA ANGELA M MED STUDENT Jul 18, 2018 14:28 ALFREDO WOLF MD Jul 18, 2018 16:24
[2018-07-18 14:49] LABS: ALANINE AMINOTRANSFERASE 18 U/L (0-55); ALBUMIN 4.4 GM/DL (3.2-4.5); ALKALINE PHOSPHATASE 57 U/L (40-136); BILIRUBIN,TOTAL 0.5 MG/DL (0.1-1.0); BUN/CREATININE RATIO 16; CALCIUM 9.8 MG/DL (8.5-10.1); CARBON DIOXIDE 26 MMOL/L (21-32); CHLORIDE 104 MMOL/L (98-107); GFR ESTIMATED 54; GLUCOSE 91 MG/DL (70-105); MAGNESIUM 2.3 MG/DL (1.8-2.4); POTASSIUM 3.7 MMOL/L (3.6-5.0); SODIUM 140 MMOL/L (135-145); TOTAL PROTEIN 7.9 GM/DL (6.4-8.2)
[2018-07-18 15:09] LABS: FREE T4 (FREE THYROXINE) 1.27 NG/DL (0.70-1.48)
[2018-07-18 15:41] LABS: BILIRUBIN,URINE NEGATIVE (NEGATIVE); CLARITY,URINE SLIGHTLY CLOUDY; COLOR,URINE YELLOW; GLUCOSE, URINE (UA) NEGATIVE (NEGATIVE); KETONES,URINE NEGATIVE (NEGATIVE); LEUKOCYTE ESTERASE ,URINE 1+ (NEGATIVE); NITRITE,URINE NEGATIVE (NEGATIVE); PH,URINE 6.5 (5-9); PROTEIN,URINE NEGATIVE (NEGATIVE); UROBILINOGEN,URINE NORMAL (NORMAL)
[2018-07-18 15:50] LABS: WBC,URINE 0-2 /HPF
[2018-07-18 15:51] LABS: AMORPHOUS SEDIMENT,UR RARE AMOR URATES /LPF
[2018-07-18 16:30] VITALS: BP 150/95
== END 2018-07-18 16:30 | disposition home or self-care (01) ==
LOC: EDUNIT# 13:45 → ER 13:46
DX: R00.2 Palpitations (principal); E03.9 Hypothyroidism, unspecified; I10 Essential (primary) hypertension; K21.9 Gastro-esophageal reflux disease without esophagitis; F41.9 Anxiety disorder, unspecified; Z87.19 Personal history of other diseases of the digestive system; Z86.010 Personal history of colon polyps; Z87.448 Personal history of other diseases of urinary system; Z90.710 Acquired absence of both cervix and uterus; Z88.0 Allergy status to penicillin; Z88.8 Allergy status to other drugs, medicaments and biological substances; Z88.6 Allergy status to analgesic agent
CPT/HCPCS: 36415; 80053; 81000; 83735; 84439; 84443; 84484; 85025; 93005

== ENCOUNTER → 2018-07-20 | Outpatient (CLI) | payer MEDICARE ==
--- NOTE | 2018-07-20 12:47 | Diagnostic Imaging Report ---
Indication: Routine screening. Comparison is made with prior mammogram from 08/26/2016 and 08/22/2015. 2D and 3D bilateral screening mammography was performed with the Computer Aided Detection (CAD) system. Both breasts are heterogeneously dense, limiting the sensitivity of mammography. The parenchymal pattern is stable. No mass or malignant-appearing microcalcifications are seen. The axillae are unremarkable. Impression: BI-RADS category 1. No mammographic features suspicious for malignancy are identified. Dictated by: Dictated on workstation # [id number]
== END ==
LOC: RAD 07:44
PROVIDERS: ATTEND Family Medicine
DX: Z12.31 Encounter for screening mammogram for malignant neoplasm of breast (principal)
CPT/HCPCS: 77067

== ENCOUNTER 2019-04-26 05:39 | Outpatient (CLI) | payer MEDICARE ==
[~2019-04-26] VITALS: Ht 175.3 cm; Wt 68.0 kg
[~2019-04-26 05:39] MED LIST changes: -LEVO25TA5; +LEVO25TA5 PO
== END 2019-04-26 13:31 | disposition home or self-care (01) ==
LOC: PREOP 05:39
PROVIDERS: ATTEND Surgery
DX: Z01.818 Encounter for other preprocedural examination (principal)

== ENCOUNTER 2019-05-02 08:49 | Day surgery (SDC) | payer MEDICARE ==
[~2019-05-02] VITALS: Ht 175.3 cm; Wt 68.0 kg
--- OUTSIDE RECORDS SUMMARY | 2019-05-02 08:54 | XMS REPORT | Continuity of Care Document ---
Author Organization Unknown Address Unknown Allergies Active Description Code Type Severity Reaction Onset Reported/Identified Relationship to Patient Clinical Status Yes Penicillins [id number] Drug Allergy Moderate RASH 11/11/2012 Yes azithromycin [id number] Drug Allergy Mild NAUSEA 04/11/2013 Yes BETA BLOCKERS BETA BLOCKERS Mild DIZZY 04/11/2013 Yes gabapentin [id number] Drug Allergy Mild DIZZY 04/11/2013 Yes levofloxacin [id number] Drug Allergy Mild NAUSEA 04/11/2013 Yes temazepam [id number] Drug Allergy Unknown UNSTEADY GAIT 08/23/2016 Medications [...] DO Ot 785.1 05/11/2015 LEYLA BATISTA DO Ot 786.50 05/11/2015 LEYLA BATISTA DO S Ot V76.12 05/11/2015 LEYLA BATISTA DO Ot V76.12 05/12/2015 GISELLE PERDUE DO Ot 244.9 05/12/2015 GISELLE PERDUE DO Ot 300.00 05/12/2015 GISELLE PERDUE DO Ot 401.9 05/12/2015 GISELLE PERDUE DO Ot 780.4 09/12/2015 ADELAIDEERNESTO ARNETT LEYLA S Ot Z12.31 05/14/2016 DILLON RUFF, TAYLA Vail Ot R00.2 PALPITATIONS 05/17/2016 DILLON RUFF, TAYLA [place]ail Ot R00.2 PALPITATIONS 06/25/2016 LEYLA BATISTA DO S Ot Z12.31 ENCNTR SCREEN MAMMOGRAM FOR MALIGNANT NE 06/28/2016 AMISH YAHIR N POCKET MACHINE OPERATOR Ot K21.9 GASTRO-ESOPHAGEAL REFLUX DISEASE WITHOUT 06/28/2016 AMISH YAHIR Pavithra POCKET MACHINE OPERATOR Ot R10.11 RIGHT UPPER QUADRANT PAIN 06/28/2016 AMISH YAHIR N POCKET MACHINE OPERATOR Ot R10.12 LEFT UPPER QUADRANT PAIN 06/28/2016 AMISH YAHIR N POCKET MACHINE OPERATOR Ot R10.13 EPIGASTRIC PAIN 06/28/2016 AMISH YAHIR N POCKET MACHINE OPERATOR Ot R19.7 DIARRHEA, UNSPECIFIED 07/20/2016 AMISH YAHIR Pavithra POCKET MACHINE OPERATOR Ot K21.9 GASTRO-ESOPHAGEAL REFLUX DISEASE WITHOUT 07/20/2016 AMISH YAHIR Pavithra POCKET MACHINE OPERATOR Ot R10.11 RIGHT UPPER QUADRANT PAIN 07/20/2016 AMISH YAHIR Pavithra POCKET MACHINE OPERATOR Ot R10.12 LEFT UPPER QUADRANT PAIN 07/20/2016 AMISH YAHIR Pavithra POCKET MACHINE OPERATOR Ot R10.13 EPIGASTRIC PAIN 07/20/2016 AMISH YAHIR N POCKET MACHINE OPERATOR Ot R19.7 DIARRHEA, UNSPECIFIED 07/21/2016 AMISH YAHIR N POCKET MACHINE OPERATOR Ot K21.9 GASTRO-ESOPHAGEAL REFLUX DISEASE WITHOUT 07/21/2016 AMISH YAHIR Pavithra POCKET MACHINE OPERATOR Ot R10.11 RIGHT UPPER QUADRANT PAIN 07/21/2016 AMISH YAHIR Pavithra POCKET MACHINE OPERATOR Ot R10.12 LEFT UPPER QUADRANT PAIN 07/21/2016 AMISH YAHIR Pavithra POCKET MACHINE OPERATOR Ot R10.13 EPIGASTRIC PAIN 07/21/2016 AMISH YAHIR N POCKET MACHINE OPERATOR Ot R19.7 DIARRHEA, UNSPECIFIED 08/19/2016 ELVA RUFF, DAQUAN Napier Ot K21.9 GASTRO-ESOPHAGEAL REFLUX DISEASE WITHOUT 08/19/2016 ELVA RUFF, DAQUAN Napier Ot Z01.818 ENCOUNTER FOR OTHER PREPROCEDURAL EXAMIN 08/19/2016 ELVA RUFF, DAQUAN M Ot Z12.11 ENCOUNTER FOR SCREENING FOR MALIGNANT NE 08/19/2016 ELVA RUFF, DAQUAN Napier Ot K21.9 GASTRO-ESOPHAGEAL REFLUX DISEASE WITHOUT 08/19/2016 ELVA RUFF, DAQUAN Napier Ot Z01.818 ENCOUNTER FOR OTHER PREPROCEDURAL EXAMIN 08/19/2016 ELVA RUFF, DAQUAN Napier Ot Z12.11 ENCOUNTER FOR SCREENING FOR MALIGNANT NE 08/23/2016 ORENDER DO, LEYLA S Ot Z12.31 ENCNTR SCREEN MAMMOGRAM FOR MALIGNANT NE 08/23/2016 YAHIR WELLINGTON N POCKET MACHINE OPERATOR Ot K21.9 GASTRO-ESOPHAGEAL REFLUX DISEASE WITHOUT 08/23/2016 YAHIR WELLINGTON N POCKET MACHINE OPERATOR Ot R10.11 RIGHT UPPER QUADRANT PAIN 08/23/2016 YAHIR WELLINGTON N POCKET MACHINE OPERATOR Ot R10.12 LEFT UPPER QUADRANT PAIN 08/23/2016 YAHIR WELLINGTON POCKET MACHINE OPERATOR Ot R10.13 EPIGASTRIC PAIN 08/23/2016 YAHIR WELLINGTON POCKET MACHINE OPERATOR Ot R19.7 DIARRHEA, UNSPECIFIED 08/23/2016 ELVA RUFF, DAQUAN Napier Ot K21.9 GASTRO-ESOPHAGEAL REFLUX DISEASE WITHOUT 08/23/2016 ELVA RUFF, DAQUAN Napier Ot Z01.818 ENCOUNTER FOR OTHER PREPROCEDURAL EXAMIN 08/23/2016 ELVA RUFF, DAQUAN Napier Ot Z12.11 ENCOUNTER FOR SCREENING FOR MALIGNANT NE 08/23/2016 ADELAIDENDER DO, LEYLA S Ot Z12.31 ENCNTR SCREEN MAMMOGRAM FOR MALIGNANT NE 08/23/2016 YAHIR WELLINGTON POCKET MACHINE OPERATOR Ot K21.9 GASTRO-ESOPHAGEAL REFLUX DISEASE WITHOUT 08/23/2016 YAHIR WELLINGTON POCKET MACHINE OPERATOR Ot R10.11 RIGHT UPPER QUADRANT PAIN 08/23/2016 YAHIR WELLINGTON POCKET MACHINE OPERATOR Ot R10.12 LEFT UPPER QUADRANT PAIN 08/23/2016 YAHIR WELLINGTON POCKET MACHINE OPERATOR Ot R10.13 EPIGASTRIC PAIN 08/23/2016 YAHIR WELLINGTON POCKET MACHINE OPERATOR Ot R19.7 DIARRHEA, UNSPECIFIED 08/23/2016 ELVA RUFF, DAQUAN Napier Ot K21.9 GASTRO-ESOPHAGEAL REFLUX DISEASE WITHOUT 08/23/2016 ELVA RUFF, DAQUAN Napier Ot Z01.818 ENCOUNTER FOR OTHER PREPROCEDURAL EXAMIN 08/23/2016 STEVENSONDAQUAN TIAN MD, Ot Z12.11 ENCOUNTER FOR SCREENING FOR MALIGNANT NE 08/23/2016 DAQUAN STEVENSON MD Ot K20.9 ESOPHAGITIS, UNSPECIFIED 08/23/2016 DAQUAN STEVENSON [...] limbs 08/23/2016 DANIA FAIZA S D K219 Gastro- esophageal reflux disease without esophagitis 08/23/2016 DANIA FAIZA S D N179 Acute kidney failure, unspecified 08/23/2016 DANIA FAIZA S D R270 Ataxia, unspecified 08/23/2016 DANIA FAIZA S D R531 Weakness 08/23/2016 FAIZA NAJERA S D R8271 Bacteriuria 08/23/2016 DANIA FAIZA [...] ENCOUNTER FOR SCREENING FOR MALIGNANT NE 08/26/2016 LEYLA BATISTA DO S Ot Z12.31 ENCNTR SCREEN MAMMOGRAM FOR MALIGNANT NE 08/26/2016 ELVA RUFF, DAQUAN Napier Ot K20.9 ESOPHAGITIS, UNSPECIFIED 08/26/2016 ELVA RUFF, DAQUAN Napier Ot K25.9 GASTRIC ULCER, UNSP ACUTE OR CHRONIC, 08/26/2016 ELVA RUFF, DAQUAN Napier Ot K57.90 DVRTCLOS OF INTEST, PART UNSP, W/O PERF 08/26/2016 ELVA RUFF, DAQUAN Napier Ot Z12.11 ENCOUNTER FOR SCREENING FOR MALIGNANT NE 08/26/2016 WILBER BATISTA DOLINE S Ot Z12.31 ENCNTR SCREEN MAMMOGRAM FOR [...] ORENDER DO, LEYLA S Ot Z79.899 OTHER CLEANER INDUSTRIAL (CURRENT) DRUG THERAPY 04/27/2017 ORENDER DO, LEYLA S Ot G57.90 UNSPECIFIED MONONEUROPATHY OF UNSPECIFIE 05/04/2017 SHIV MONTOYA Ot N39.0 URINARY TRACT INFECTION, SITE NOT SPECIF 05/19/2017 ORENDER DO, LEYLA S Ot R01.1 CARDIAC MURMUR, UNSPECIFIED 05/19/2017 ORENDER DO, LEYLA S Ot Z79.899 OTHER LONG-TERM (CURRENT) DRUG THERAPY 05/23/2017 ORENDER DO, LEYLA S Ot G57.90 UNSPECIFIED MONONEUROPATHY OF UNSPECIFIE 05/27/2017 ORENDER DO, LEYLA S Ot R01.1 CARDIAC MURMUR, UNSPECIFIED 05/27/2017 LEYLA BATISTA DO Ot Z79.899 OTHER CLEANER INDUSTRIAL (CURRENT) DRUG THERAPY 05/27/2017 LEYLA BATISTA DO Ot G57.90 UNSPECIFIED MONONEUROPATHY OF UNSPECIFIE 05/31/2017 LEYLA BATISTA DO Ot G57.90 UNSPECIFIED MONONEUROPATHY OF UNSPECIFIE 06/13/2017 CHLOE RUFF [facility] CCDS Ot I47.1 SUPRAVENTRICULAR TACHYCARDIA 06/14/2017 CHLOE RUFF [facility] CCDS Ot I47.1 SUPRAVENTRICULAR TACHYCARDIA 10/03/2017 NETTE ARNETT GISELLE K Ot E03.9 HYPOTHYROIDISM, UNSPECIFIED 10/03/2017 NETTE GISELLE K Ot E86.0 DEHYDRATION 10/03/2017 NETTE DO GISELLE K Ot F41.9 ANXIETY DISORDER, UNSPECIFIED 10/03/2017 NETTE GISELLE K Ot I10 ESSENTIAL (PRIMARY) HYPERTENSION 10/03/2017 NETTE DO GISELLE K Ot K21.9 GASTRO-ESOPHAGEAL REFLUX DISEASE WITHOUT 10/03/2017 NETTE , GISELLE K Ot N28.9 DISORDER OF KIDNEY AND URETER, UNSPECIFI 10/03/2017 NETTE GISELLE K Ot N39.0 URINARY TRACT INFECTION, SITE NOT SPECIF 10/03/2017 NETTE ARNETT GISELLE K Ot R53.1 WEAKNESS 10/03/2017 NETTE GISELLE K Ot Z86.010 PERSONAL HISTORY OF COLONIC POLYPS 10/03/2017 NETTE ARNETT GISELLE K Ot Z87.19 PERSONAL HISTORY OF OTHER DISEASES OF TH 10/03/2017 NETTE ARNETT GISELLE K Ot Z90.710 ACQUIRED ABSENCE OF BOTH CERVIX AND UTER 01/01/2018 DIA ALMANZA MD Ot E03.9 HYPOTHYROIDISM, UNSPECIFIED 01/01/2018 DIA ALMANZA MD, Ot F41.9 ANXIETY DISORDER, UNSPECIFIED 01/01/2018 DIA ALMANZA MD Ot G62.9 POLYNEUROPATHY, UNSPECIFIED 01/01/2018 DIA ALMANZA MD Ot I10 ESSENTIAL (PRIMARY) HYPERTENSION 01/01/2018 [place] MD, DIA D Ot K21.9 GASTRO-ESOPHAGEAL REFLUX DISEASE WITHOUT 01/01/2018 DIA ALMANZA MD Ot R00.2 PALPITATIONS 01/01/2018 DIA ALMANZA MD Ot Z87.19 PERSONAL HISTORY OF OTHER DISEASES OF TH 01/01/2018 DIA ALMANZA MD Ot Z88.0 ALLERGY STATUS TO PENICILLIN 01/01/2018 DIA ALMANZA MD, Ot Z88.1 ALLERGY STATUS TO OTHER ANTIBIOTIC AGENT 01/01/2018 DIA ALMANZA MD, Ot Z88.8 ALLERGY STATUS TO OTH DRUG/MEDS/BIOL SUB 01/01/2018 DIA ALMANZA MD, Ot Z90.710 ACQUIRED ABSENCE OF BOTH CERVIX AND UTER 04/14/2018 ORENDER DO, LEYLA S Ot 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, 04/14/2018 ORENDER DO, LEYLA S Ot M47.816 SPONDYLOSIS W/O MYELOPATHY OR RADICULOPA 05/05/2018 ADELAIDENDER DO LEYLA S Ot 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, 05/05/2018 ORENDER DO, LEYLA S Ot M47.816 SPONDYLOSIS W/O MYELOPATHY OR RADICULOPA 05/09/2018 ADELAIDENDER DO, LEYLA S Ot 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 DISC DEGENERATION, 05/09/2018 ORENDER DO, LEYLA S Ot N94.819 VULVODYNIA, UNSPECIFIED 05/11/2018 ORENDER DO, LEYLA S Ot 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, 05/11/2018 ORENDER DO, LEYLA S Ot M47.816 SPONDYLOSIS W/O MYELOPATHY OR RADICULOPA 05/12/2018 ADELAIDENDER DO, LEYLA S Ot Z12.31 ENCNTR SCREEN MAMMOGRAM FOR MALIGNANT NE 05/12/2018 YAHIR WELLINGTON POCKET MACHINE OPERATOR Ot K21.9 GASTRO-ESOPHAGEAL REFLUX DISEASE WITHOUT 05/12/2018 YAHIR WELLINGTON POCKET MACHINE OPERATOR Ot R10.11 RIGHT UPPER QUADRANT PAIN 05/12/2018 YAHIR WELLINGTON POCKET MACHINE OPERATOR Ot R10.12 LEFT UPPER QUADRANT PAIN 05/12/2018 YAHIR WELLINGTON POCKET MACHINE OPERATOR Ot R10.13 EPIGASTRIC PAIN 05/12/2018 YAHIR WELLINGTON APRN Ot R19.7 DIARRHEA, UNSPECIFIED 05/12/2018 ELVA RUFF, DAQUAN Napier Ot K21.9 GASTRO-ESOPHAGEAL REFLUX DISEASE WITHOUT 05/12/2018 ELVA RUFF, DAQUAN Napier Ot Z01.818 ENCOUNTER FOR OTHER PREPROCEDURAL EXAMIN 05/12/2018 ELVA RUFF, DAQUAN Napier Ot Z12.11 ENCOUNTER FOR SCREENING FOR MALIGNANT NE 05/12/2018 ORENDER DO, LEYLA S Ot Z12.31 ENCNTR SCREEN MAMMOGRAM FOR MALIGNANT NE 05/12/2018 ORENDER DO, LEYLA S Ot R01.1 CARDIAC MURMUR, UNSPECIFIED 05/12/2018 ORENDER DO, LEYLA S Ot Z79.899 OTHER CLEANER INDUSTRIAL (CURRENT) DRUG THERAPY 05/12/2018 SHIV MONTOYA Ot N39.0 URINARY TRACT INFECTION, SITE NOT SPECIF 05/12/2018 CHLOE RUFF FACC, FLORESITA [place] CCDS Ot I47.1 SUPRAVENTRICULAR TACHYCARDIA 05/12/2018 ORENDER DO, LEYLA S Ot 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, 05/12/2018 ORENDER DO, LEYLA S Ot M47.816 SPONDYLOSIS W/O MYELOPATHY OR RADICULOPA 05/12/2018 ORENDER DO, LEYLA S Ot 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 DISC DEGENERATION, 05/12/2018 ORENDER DO, LEYLA S Ot N94.819 VULVODYNIA, UNSPECIFIED 07/18/2018 LUCIANO RUFF, ALFREDO Pearson Ot E03.9 HYPOTHYROIDISM, UNSPECIFIED 07/18/2018 LUCIANO RUFF, ALFREDO Pearson Ot F41.9 ANXIETY DISORDER, UNSPECIFIED 07/18/2018 LUCIANO RUFF, ALFREDO Pearson Ot I10 ESSENTIAL (PRIMARY) HYPERTENSION 07/18/2018 ALFREDO WOLF MD Ot I49.9 CARDIAC ARRHYTHMIA, UNSPECIFIED 07/18/2018 ALFREDO WOLF MD Ot K21.9 GASTRO-ESOPHAGEAL REFLUX DISEASE WITHOUT 07/18/2018 ALFREDO WOLF MD Ot R00.2 PALPITATIONS 07/18/2018 LUCIANO RUFF, ALFREDO Pearson Ot Z86.010 PERSONAL HISTORY OF COLONIC POLYPS 07/18/2018 ALFREDO WOLF MD Ot Z87.19 PERSONAL HISTORY OF OTHER DISEASES OF TH 07/18/2018 ALFREDO WOLF MD Ot Z87.448 PERSONAL HISTORY OF OTHER DISEASES OF UR 07/18/2018 ALFREDO WOLF MD Ot Z88.0 ALLERGY STATUS TO PENICILLIN 07/18/2018 ALFREDO WOLF MD Ot Z88.6 ALLERGY STATUS TO ANALGESIC AGENT STATUS 07/18/2018 ALFREDO WOLF MD Ot Z88.8 ALLERGY STATUS TO OTH DRUG/MEDS/BIOL SUB 07/18/2018 ALFREDO WOLF MD Ot Z90.710 ACQUIRED ABSENCE OF BOTH CERVIX AND UTER 07/20/2018 ALFREDO WOLF MD Ot E03.9 HYPOTHYROIDISM, UNSPECIFIED 07/20/2018 ALFREDO WOLF MD Ot F41.9 ANXIETY DISORDER, UNSPECIFIED 07/20/2018 ALFREDO WOLF MD Ot I10 ESSENTIAL (PRIMARY) HYPERTENSION 07/20/2018 ALFREDO WOLF MD Ot I49.9 CARDIAC ARRHYTHMIA, UNSPECIFIED 07/20/2018 ALFREDO WOLF MD Ot K21.9 GASTRO-ESOPHAGEAL REFLUX DISEASE WITHOUT 07/20/2018 ALFREDO WOLF MD Ot R00.2 PALPITATIONS 07/20/2018 ALFREDO WOLF MD Ot Z86.010 PERSONAL HISTORY OF COLONIC POLYPS 07/20/2018 ALFREDO WOLF MD Ot Z87.19 PERSONAL HISTORY OF OTHER DISEASES OF TH 07/20/2018 ALFREDO WOLF MD Ot Z87.448 PERSONAL HISTORY OF OTHER DISEASES OF UR 07/20/2018 ALFREDO WOLF MD Ot Z88.0 ALLERGY STATUS TO PENICILLIN 07/20/2018 ALFREDO WOLF MD Ot Z88.6 ALLERGY STATUS TO ANALGESIC AGENT STATUS 07/20/2018 ALFREDO WOLF MD Ot Z88.8 ALLERGY STATUS TO OTH DRUG/MEDS/BIOL SUB 07/20/2018 ALFREDO WOLF MD Ot Z90.710 ACQUIRED ABSENCE OF BOTH CERVIX AND UTER 07/21/2018 ADELAIDENDER DO, LEYLA S Ot Z12.31 ENCNTR SCREEN MAMMOGRAM FOR MALIGNANT NE 08/09/2018 ORENDER DO, LEYLA S Ot Z12.31 ENCNTR SCREEN MAMMOGRAM FOR MALIGNANT NE 04/16/2019 ADELAIDENDER DO, LEYLA S Ot I34.0 NONRHEUMATIC MITRAL (VALVE) INSUFFICIENC 04/26/2019 MAYELIN BRIGGS MD Ot Z01.818 ENCOUNTER FOR OTHER PREPROCEDURAL EXAMIN 04/27/2019 MAYELIN BRIGGS MD Ot Z01.818 ENCOUNTER FOR OTHER PREPROCEDURAL EXAMIN 04/30/2019 ADELAIDENDER DO, LEYLA S Ot Z12.31 ENCNTR SCREEN MAMMOGRAM FOR MALIGNANT NE 04/30/2019 YAHIR WELLINGTON POCKET MACHINE OPERATOR Ot K21.9 GASTRO-ESOPHAGEAL REFLUX DISEASE WITHOUT 04/30/2019 YAHIR WELLINGTON POCKET MACHINE OPERATOR Ot R10.11 RIGHT UPPER QUADRANT PAIN 04/30/2019 YAHIR WELLINGTON POCKET MACHINE OPERATOR Ot R10.12 LEFT UPPER QUADRANT PAIN 04/30/2019 YAHIR WELLINGTON POCKET MACHINE OPERATOR Ot R10.13 EPIGASTRIC PAIN 04/30/2019 YAHIR WELLINGTON POCKET MACHINE OPERATOR Ot R19.7 DIARRHEA, UNSPECIFIED 04/30/2019 ELVA RUFF, DAQUAN Napier Ot K21.9 GASTRO-ESOPHAGEAL REFLUX DISEASE WITHOUT 04/30/2019 ELVA RUFF, DAQUAN Napier Ot Z01.818 ENCOUNTER FOR OTHER PREPROCEDURAL EXAMIN 04/30/2019 ELVA RUFF, DAQUAN Napier Ot Z12.11 ENCOUNTER FOR SCREENING FOR MALIGNANT NE 04/30/2019 ADELAIDENDER DO, LEYLA S Ot Z12.31 ENCNTR SCREEN MAMMOGRAM FOR MALIGNANT NE 04/30/2019 ADELAIDENDER DO, LEYLA S Ot I34.0 NONRHEUMATIC MITRAL (VALVE) INSUFFICIENC 04/30/2019 ORENDER DO, LEYLA S Ot R01.1 CARDIAC MURMUR, UNSPECIFIED 04/30/2019 ORENDER DO, LEYLA S Ot Z79.899 OTHER CLEANER INDUSTRIAL (CURRENT) DRUG THERAPY 04/30/2019 SHIV MONTOYA Ot N39.0 URINARY TRACT INFECTION, SITE NOT SPECIF 04/30/2019 CHLOE RUFF FACC, ALI FACP CCDS Ot I47.1 SUPRAVENTRICULAR TACHYCARDIA 04/30/2019 LEYLA BATISTA DO Ot 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, 04/30/2019 WILBER BATISTA DOLINE Genna Ot M47.816 SPONDYLOSIS W/O MYELOPATHY OR RADICULOPA 04/30/2019 LEYLA BATISTA DO Ot Z12.31 ENCNTR SCREEN MAMMOGRAM FOR MALIGNANT NE Procedures Code Description [place] [address] 08/13/2016 30253 08/13/2016 34954 08/13/2016 58564 08/13/2016 13437 08/13/2016 87944 08/13/2016 08675 08/13/2016 12482 08/13/2016 21651 08/13/2016 78905 08/13/2016 47091 08/13/2016 91940 08/13/2016 63645 08/13/2016 32036 08/13/2016 85026 08/13/2016 55718 08/13/2016 75911 08/13/2016 42661 08/13/2016 48051 08/13/2016 19325 08/13/2016 G0378 08/13/2016 G0479 08/13/2016 J0696 08/13/2016 08053 08/14/2016 76880 08/14/2016 49694 08/14/2016 39880 08/14/2016 G0378 08/14/2016 Results Test Result Range [...] Automated erythrocyte mean corpuscular hemoglobin concentration measurement (mass/volume) 34 g/dL 32-36 Automated erythrocyte distribution width ratio 13.2 % 10.0- 14.5 Automated blood platelet count (count/volume) 350 10*3/uL [...] Blood monocytes automated count (number/volume) 1.0 10*3 0.0- 1.0 Automated eosinophil count 0.7 10*3/uL 0.0-0.3 Automated blood basophil count (count/volume) 0.1 10*3/uL 0.0-0.1 Blood lactic acid measurement (moles/volume) - 10/02/17 22:40 Blood lactic acid measurement (moles/volume) 2.37 mmol/L 0.50- 2.00 PT panel in platelet poor plasma by [...] Serum or plasma aspartate aminotransferase measurement (enzymatic activity/volume) 23 U/L 5-34 Serum or plasma alanine aminotransferase measurement (enzymatic activity/volume) 14 U/L 0-55 Serum or plasma protein measurement (mass/volume) 8.2 g/dL 6.4-8.2 Serum or plasma albumin measurement (mass/volume) 4.3 g/dL 3.2-4.5 Magnesium - 10/02/17 22:40 Magnesium 2.2 mg/dL 1.8-2.4 Serum or plasma troponin i.cardiac measurement (mass/volume) - 10/02/17 22:40 Serum or plasma troponin i.cardiac measurement (mass/volume) < ng/mL <0.30 Serum or plasma lithium measurement (moles/volume) - 10/02/17 22:40 BNP level 49.9 pg/mL <100.0 Serum or plasma thyroxine (T4) free measurement (mass/volume) - 10/02/17 22:40 Serum or plasma thyroxine (T4) free measurement (mass/volume) 1.19 ng/dL 0.70-1.48 Serum or plasma thyrotropin measurement by detection limit <=0.05 miu/l (units/volume) - 10/02/17 22:40 Serum or plasma thyrotropin measurement by detection limit <=0.05 miu/l (units/volume) 6.05 u[iU]/mL 0.35-4.94 Complete urinalysis with reflex to culture - 10/02/17 23:20 Urine color determination YELLOW NRG Urine clarity determination CLEAR NRG Urine pH measurement by test strip 6 5-9 Specific gravity of urine by test strip 1.015 1.016-1.022 Urine protein assay by test strip, semi-quantitative [...] sediment leukocyte count by microscopy (number/high power field) NONE NRG Bacteria detection in urine sediment [...] Automated erythrocyte mean corpuscular hemoglobin concentration measurement (mass/volume) 35 g/dL 32-36 Automated erythrocyte distribution width ratio 13.0 % 10.0- 14.5 Automated blood platelet count (count/volume) 276 10*3/uL [...] Blood monocytes automated count (number/volume) 0.8 10*3 0.0- 1.0 Automated eosinophil count 0.6 10*3/uL 0.0-0.3 Automated [...] Serum or plasma aspartate aminotransferase measurement (enzymatic activity/volume) 22 U/L 5-34 Serum or plasma alanine aminotransferase measurement (enzymatic activity/volume) 18 U/L 0-55 Serum or plasma protein [...] measurement in platelet poor plasma (mass/volume) - 12/31/17 20:58 Fibrin D-dimer FEU measurement in platelet poor plasma (mass/volume) 0.33 ug/mL 0.00-0.49 Serum or plasma troponin i.cardiac measurement (mass/volume) - 12/31/17 20:58 Serum or plasma troponin i.cardiac measurement (mass/volume) < ng/mL <0.30 Myoglobin, serum - 12/31/17 20:58 Myoglobin, serum 48.7 ng/mL 10.0-92.0 Serum or plasma troponin i.cardiac measurement (mass/volume) - 12/31/17 23:14 Serum or plasma troponin i.cardiac measurement (mass/volume) < ng/mL <0.30 Complete blood count (CBC) with automated white blood cell (WBC) differential - 07/18/18 14:09 Blood leukocytes automated count (number/volume) 9.1 10*3/uL 4.3-11.0 Blood erythrocytes automated count (number/volume) 4.44 10*6/uL 4.35-5.85 Venous blood hemoglobin measurement (mass/volume) 14.6 g/dL 11.5-16.0 Blood hematocrit (volume fraction) 41 % 35-52 Automated erythrocyte mean corpuscular volume 92 [foz_us] 80-99 Automated erythrocyte mean corpuscular hemoglobin (mass per erythrocyte) 33 pg 25-34 Automated erythrocyte mean corpuscular hemoglobin concentration measurement (mass/volume) 36 g/dL 32-36 Automated erythrocyte distribution width ratio 13.2 % 10.0- 14.5 Automated blood platelet count (count/volume) 311 10*3/uL 130-400 Automated blood platelet mean volume measurement 10.3 [foz_us] 7.4-10.4 Automated blood neutrophils/100 leukocytes 68 % 42-75 Automated blood lymphocytes/100 leukocytes 22 % 12-44 Blood monocytes/100 leukocytes 8 % 0-12 Automated blood eosinophils/100 leukocytes 2 % 0-10 Automated blood basophils/100 leukocytes 1 % 0-10 Blood neutrophils automated count (number/volume) 6.2 10*3 1.8-7.8 Blood lymphocytes automated count (number/volume) 2.0 10*3 1.0-4.0 Blood monocytes automated count (number/volume) 0.7 10*3 0.0- 1.0 Automated eosinophil count 0.2 10*3/uL 0.0-0.3 Automated blood basophil count (count/volume) 0.1 10*3/uL 0.0-0.1 Comprehensive metabolic panel - 07/18/18 14:09 Serum or plasma sodium measurement (moles/volume) 140 mmol/L 135-145 Serum or plasma potassium measurement (moles/volume) 3.7 mmol/L 3.6-5.0 Serum or plasma chloride measurement (moles/volume) 104 mmol/L 98-107 Carbon dioxide 26 mmol/L 21-32 Serum or plasma anion gap determination (moles/volume) 10 mmol/L 5-14 Serum or plasma urea nitrogen measurement (mass/volume) 16 mg/dL 7-18 Serum or plasma creatinine measurement (mass/volume) 1.00 mg/dL 0.60-1.30 Serum or plasma urea nitrogen/creatinine mass ratio 16 NRG Serum or plasma creatinine measurement with calculation of estimated glomerular filtration rate 54 NRG Serum or plasma glucose measurement (mass/volume) 91 mg/dL 70-105 Serum or plasma calcium measurement (mass/volume) 9.8 mg/dL 8.5-10.1 Serum or plasma total bilirubin measurement (mass/volume) 0.5 mg/dL 0.1-1.0 Serum or plasma alkaline phosphatase measurement (enzymatic activity/volume) 57 U/L 40-136 Serum or plasma aspartate aminotransferase measurement (enzymatic activity/volume) 22 U/L 5-34 Serum or plasma alanine aminotransferase measurement (enzymatic activity/volume) 18 U/L 0-55 Serum or plasma protein measurement (mass/volume) 7.9 g/dL 6.4-8.2 Serum or plasma albumin measurement (mass/volume) 4.4 g/dL 3.2-4.5 CALCIUM CORRECTED 9.5 mg/dL 8.5-10.1 Magnesium - 07/18/18 14:09 Magnesium 2.3 mg/dL 1.8-2.4 Serum or plasma troponin i.cardiac measurement (mass/volume) - 09/18/18 14:09 Serum or plasma troponin i.cardiac measurement (mass/volume) < ng/mL <0.30 THYROID STIMULATING HORMONE - 07/18/18 14:09 THYROID STIMULATING HORMONE 3.37 u[iU]/mL 0.35-4.94 Serum or plasma thyroxine (T4) free measurement (mass/volume) - 07/18/18 14:09 Serum or plasma thyroxine (T4) free measurement (mass/volume) 1.27 ng/dL 0.70-1.48 Complete urinalysis with reflex to culture - 07/18/18 15:25 Urine color determination YELLOW NRG Urine clarity determination SLIGHTLY CLOUDY NRG Urine pH measurement by test strip 6.5 5-9 Specific gravity of urine by test strip 1.010 1.016-1.022 Urine protein assay by test strip, semi-quantitative [...] NORMAL Urine leukocyte esterase detection by dipstick 1+ NEGATIVE Automated urine sediment erythrocyte count by microscopy (number/high power field) NONE NRG Automated urine sediment leukocyte count by microscopy (number/high power field) [HPF] NRG Bacteria detection in urine sediment by light microscopy NONE NRG Squamous epithelial cells detection in urine sediment by light microscopy 2-5 NRG Crystals detection in urine sediment by light microscopy PRESENT NRG Casts detection in urine sediment by light microscopy NONE NRG Mucus detection in urine sediment by light microscopy NEGATIVE NRG Complete urinalysis with reflex to culture NO NRG Amorphous sediment detection in urine sediment by light microscopy RARE PAO URATES NRG Encounters ACCT No. Visit Date/Time Discharge Status Pt. Type Provider Facility Loc./Unit Complaint [id number] 08/13/2016 23:26:00 08/14/2016 12:43:31 DIS Outpatient RUSINFAIZA S <PV2.3.2>Weakness</PV2.3.2><PV2.3.2>PNEUMONIA, WEAKNESS</PV2.3.2><PV2.3.2>Dehydration</PV2.3.2><PV2.3.2>Acute kidney failure, unspecified</PV2.3.2><PV2.3.2>Weakness</PV2.3.2><PV2.3.2>Other nonspecific abnormal finding of lung field</PV2.3.2><PV2.3.2>Ataxia, unspecified</PV2.3.2><PV2.3.2>Bacteriuria</PV2.3.2&gt ;<PV2.3.2>Acidosis</PV2.3.2><PV2.3.2>Hypothyroidism, unspecified</PV2.3.2><PV2.3.2>Hyperlipidemia, unspecified</PV2.3.2><PV2.3.2>Gastro-esophageal reflux disease without esophagitis</PV2.3.2><PV2.3.2>Vitamin D deficiency, unspecified</PV2.3.2><PV2.3.2>Unspecified mononeuropathy of bilateral lower limbs</PV2.3.2><PV2.3.2>Personal history of tuberculosis</PV2.3.2><PV2.3.2>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</PV2.3.2> [id number] 04/26/2019 05:39:00 04/26/2019 13:31:00 DIS Outpatient MAYELIN BRIGGS MD [facility] PREOP EGD [id number] 07/20/2018 07:44:00 07/20/2018 23:59:59 [facility] Outpatient LEYLA BATISTA DO [facility] RAD SCREENING [id number] 07/18/2018 13:46:00 07/18/2018 16:30:00 DIS Emergency LUCIANO RUFF, ALFREDO Pearson [facility] ER IRREGULAR HEART BEAT [id number] 05/09/2018 12:35:00 05/09/2018 17:19:00 DIS Outpatient LEYLA BATISTA DO [facility] REHAB LUMBAR DDD; VULVODYNIA PELVIC FLOOR DYSFUNCTION [id number] 04/13/2018 11:24:00 04/13/2018 23:59:59 CLS Outpatient LEYLA BATISTA DO [facility] RAD LOW BACK PAIN [id number] 12/31/2017 20:35:00 01/01/2018 00:11:00 DIS Emergency DIA ALMANZA MD [facility] ER IRREGULAR HEART BEAT [id number] 10/02/2017 22:08:00 10/03/2017 00:29:00 DIS Emergency GISELLE PERDUE DO [facility] ER SWEATS WEAK [id number] 06/14/2017 10:07:00 06/14/2017 23:59:59 CLS Outpatient CHLOE RUFF FACC, FLORESITA [place] CCDS [facility] CARD I47.1 [id number] 05/31/2017 13:45:00 05/31/2017 16:46:00 DIS Outpatient MARILEE BATISTA DOQUELINE S [facility] REHAB NEUROPATHY OF LEGS/FEET [id number] 04/19/2017 11:16:00 04/19/2017 23:59:59 CLS Outpatient LESTER ARNETT LEYLA S [facility] CARD CARDIAC MURMUR [id number] 04/19/2017 08:00:00 04/19/2017 23:59:59 CLS Outpatient LESTER ARNETT LEYLA S [facility] CARD CARDIAC MURMUR [id number] 04/09/2017 18:45:00 04/09/2017 23:59:59 CLS Outpatient SHIV MONTOYA [facility] LAB VAGINAL IRRITATION [id number] 09/06/2016 18:05:00 09/06/2016 18:54:00 DIS Emergency GISELLE PERDUE DO [facility] ER WEAKNESS EPISODE [id number] 08/26/2016 07:10:00 08/26/2016 23:59:59 CLS Outpatient MARILEE BATISTA DOQUELINE S [facility] RAD SCREENING [id number] 08/23/2016 06:50:00 08/23/2016 10:00:00 DIS Outpatient DAQUAN STEVENSON MD [facility] SDC SCREENING;GERD [id number] 08/19/2016 05:59:00 08/19/2016 23:59:59 CLS Outpatient ELVA RUFF, DAQUAN M [facility] PREOP SCREENING, GERD [id number] 06/25/2016 07:42:00 06/25/2016 23:59:59 CLS Outpatient YAHIR WELLINGTON APRN [facility] RAD BILATERAL UPPER QUADRENT PAIN [id number] 05/14/2016 14:18:00 05/14/2016 16:20:00 DIS Emergency TAYLA CARRANZA MD [facility] ER IRR HEART RATE [id number] 08/22/2015 07:20:00 08/22/2015 23:59:59 CLS Outpatient ORENDER DO, LEYLA S [facility] RAD SCREENING [id number] 05/11/2015 22:42:00 05/12/2015 01:08:00 DIS Emergency GISELLE PERDUE DO [facility] ER [id number] 07/25/2014 07:44:00 07/25/2014 23:59:59 CLS Outpatient ORENDER DO, LEYLA S [facility] RAD [id number] 04/30/2014 12:00:00 04/30/2014 23:59:59 CLS Outpatient [id number] 07/17/2013 06:53:00 07/17/2013 23:59:59 CLS Outpatient ORENDER DO, LEYLA S [facility] RAD [id number] 04/17/2013 08:58:00 04/17/2013 23:59:59 CLS Outpatient ORENDER DO, LEYLA S [facility] CARD [id number] 04/11/2013 13:41:00 04/11/2013 16:34:00 DIS Emergency AR PRESSLEY DO [facility] ER [id number] 05/02/2019 10:15:00 PEN Preadmit MAYELIN BRIGGS MD [facility] ENDO DYSPHAGIA/ABD PAIN [id number] 12/01/2012 10:23:00 Document Registration [id number] 11/11/2012 13:12:00 Document Registration [id number] 07/14/2012 07:02:00 Document Registration [id number] 08/16/2011 10:25:00 Document Registration [id number] 07/13/2011 07:08:00 Document Registration [id number] 07/02/2010 08:40:00 Document Registration 04/25/11 04/16/2019 10:53:06 04/16/2019 23:59:59 Leyla Brown
[2019-05-02] MEDS ORDERED: NS IV 500 ML 500 ML ONE (08:59)
[2019-05-02] MEDS ORDERED: NS IV 500 ML 500 ML IV PRN (09:26)
[2019-05-02 09:29] VITALS: BP 190/103
[2019-05-02] MEDS ORDERED: fentaNYL INJECTION 100 MCG/2 ML AMP IVP ONE (09:30)
[2019-05-02] MEDS ORDERED: LIDOCAINE JELLY 2% 6 ML SYRINGE MM PRN (09:30)
[2019-05-02] MEDS ORDERED: MIDAZOLAM 2 MG/2 ML (VERSED) VIAL IVP ONE (09:30)
[2019-05-02] MEDS ORDERED: HURRICAINE EXT TUBE (BENZOCAINE) XX PRN (09:30)
[2019-05-02] MEDS ORDERED: fentaNYL INJECTION 100 MCG/2 ML AMP ONE (10:11)
[2019-05-02] MEDS ORDERED: LIDOCAINE JELLY 2% 6 ML SYRINGE ONE (10:11)
[2019-05-02] MEDS ORDERED: MIDAZOLAM 2 MG/2 ML (VERSED) VIAL ONE ×4 (10:11→10:12)
[2019-05-02] MEDS ORDERED: HURRICAINE EXT TUBE (BENZOCAINE) ONE (10:12)
--- NOTE | 2019-05-02 10:26 | Conscious Sedation/ASA ---
Conscious Sedation Pre-Proced Time 10:00 ASA Score 2 For ASA 3 and 4: Consider anesthesia and medical clearance. Also, for patients with a history of failed moderate sedation consider anesthesia. Airway Lungs Heart ASA score ASA 1: a normal healthy patient ASA 2: a patient with a mild systemic disease (mid diabetes, controlled hypertension, obesity ASA 3: a patient with a severe systemic disease that limits activity (angina, COPD, prior Myocardial infarction) ASA 4: a patient with an incapacitating disease that is a constant threat to life (CHF, renal failure) ASA 5: a moribund patient not expected to survive 24 hrs. (ruptured aneurysm) ASA 6: a declared brain- patient whose organs are being harvested. For emergent operations, add the letter E after the classification Mallampati Classification Grade 2 Sedation Plan Analgesia, Amnesia, Plan communicated to team members, Discussed options with patient/fam, Discussed risks with patient/fam The patient is an appropriate candidate to undergo the planned procedure, sedation, and anesthesia. The patient immediately re-assessed prior to indication. MAYELIN BRIGGS MD May 02, 2019 10:26
--- NOTE | 2019-05-02 10:27 | Progress Note-Pre Operative ---
Pre-Operative Progress Note H&P Reviewed The H&P was reviewed, patient examined and no changes noted. Date Seen by Provider: May 02, 2019 Time Seen by Provider: 10:00 Date H&P Reviewed: May 02, 2019 Time H&P Reviewed: 10:00 Pre-Operative Diagnosis: dysphagia, GERD MAYELIN BRIGGS MD May 02, 2019 10:27
--- NOTE | 2019-05-02 10:28 | Discharge Inst-Surgical ---
D/C Lap Instructions-BRIGITTE Follow Up Activity as tolerated High Fiber Diet 25g or more per day Avoid Alcohol, Caffeine, Spicy [place] and Acid foods. Drink 64 fluid oz or more of fluids per day. Symptoms to Report: Fever over 101 degree F, Nausea/Vomiting If any problems/questions: Contact your physician or go to Emergency Room MAYELIN BRIGGS MD May 02, 2019 10:28
[2019-05-02] MEDS ORDERED: ACETAMINOPHEN 325 MG TABLET PO PRN (10:30)
[2019-05-02] MEDS ORDERED: ONDANSETRON 4 MG/2 ML (SDV) Z0FRAN IVP PRN (10:30)
[2019-05-02] MEDS ORDERED: HYDROcodone/APAP 5 MG/325 MG (LORTAB) TAB PO PRN (10:30)
[2019-05-02] MEDS ORDERED: morphine INJ 10 MG/ML 1ML (SYR OR VIAL) IVP PRN ×2 (10:30)
--- NOTE | 2019-05-02 11:03 | Progress Note-Post Operative ---
Post-Operative Progess Note Surgeon (s)/Produce Shipper (s) Surgeon MAYELIN BRIGGS MD Produce Shipper: none Pre-Operative Diagnosis dysphagia, GERD Post-Operative Diagnosis reflux esophagitis(stage 2), mild dist esoph stricture, small recurrent HH(1.5cm), moderate gasrtritis. Procedure & Operative Findings Date of Procedure 05/02/19 Procedure Performed/Findings EGD with bx and balloon dilatation. Anesthesia Type cs Estimated Blood Loss Estimated blood loss (mL): minimal Specimens/Packing Specimens Removed ge, antrum MAYELIN BRIGGS MD May 02, 2019 11:03
[2019-05-02 11:15] VITALS: BP 136/73
[2019-05-02 11:45] VITALS: BP 135/68
[2019-05-02] MEDS ORDERED: OMEP40CA36 PO (11:46)
[2019-05-02 12:10] VITALS: BP 135/68
--- NOTE | 2019-05-02 16:01 | OPERATIVE REPORT ---
DATE OF SERVICE: 05/02/2019 PRIMARY CARE PHYSICIAN: Dr. Atwood. PREOPERATIVE DIAGNOSES: Dysphagia, gastroesophageal reflux disease. POSTOPERATIVE DIAGNOSES: Reflux esophagitis, stage II, mild distal esophageal stricture with a Schatzki's ring, small recurrent hiatal hernia approximately 1.5 cm in size, moderate gastritis. PROCEDURE: EGD with biopsy and balloon dilatation. SURGEON: Mayelin Briggs MD ANESTHESIA: Conscious sedation. ESTIMATED BLOOD LOSS: Minimal. FINDINGS: Reflux esophagitis, stage II, mild distal esophageal stricture with a Schatzki's ring, small recurrent hiatal hernia approximately 1.5 cm in size, moderate gastritis. DISPOSITION: The patient tolerated the procedure well. INDICATIONS: The patient is a 74-year-old female who we have seen before in the past. She has had a longstanding history of gastroesophageal reflux disease. She is status post hiatal hernia repair and antireflux procedure. She reports that she had done well for some amount of time; however, eventually developed dysphagia. Approximately 3 years ago, she underwent an EGD and found to have a distal esophageal stricture and underwent a dilatation procedure. She reports that she again did well; however, has had recurrence of symptoms with epigastric burning sensation as well as difficulty swallowing different types of foods with substernal pressure sensation as well as regurgitation on occasion. DESCRIPTION OF PROCEDURE: The patient was brought to the endoscopy suite, laid in the left lateral decubitus position. After adequate IV pain and sedating medications and conscious sedation anesthesia, the mouthpiece was applied. Endoscope was placed in the mouth, visualizing the pharynx and hypopharyngeal region. Vocal cords, epiglottis and vallecula identified and appeared to be normal. The endoscope was gently intubated. Esophageal opening and esophagus insufflated. Endoscope was then advanced through the first, second and third portions of the esophagus at the level of the GE junction, a reflux esophagitis, stage II identified. There was mild to moderate distal esophageal stricture and Schatzki's ring identified. A biopsy was taken of the GE junction using forceps with visualization. The endoscope was then advanced into the stomach and endoscope retroflexed, visualizing a small recurrent hiatal hernia approximately 1.5 cm in size. The distal esophageal stricture was identified through the retroflexed view as well. There was a moderate severity gastritis noted. There were no formal ulcerations, polyps, or any neoplasms. A biopsy was taken of the antrum to rule out H. pylori with visualization of good hemostasis. The endoscope was then advanced to the pylorus and the first and second portions of the duodenum with no distal obstructions identified. We then proceeded with dilatation of the distal esophageal stricture. The balloon was placed in the stomach and pulled back to the area of stricture. We first proceeded to 2 atmospheres pressure with no resistance. We then proceeded to 4 atmospheres of pressure with mild resistance. The balloon was then slowly insufflated 6 atmospheres of pressure with mild to moderate resistance and we left this in place for 60 seconds. The balloon was then desufflated and removed. The balloon was then removed and there were no mucosal tears identified as well as no bleeding. The endoscope was then slowly withdrawn while taking a second look and suctioning of residual air with no additional findings. The patient tolerated the procedure well. We will again recommend acid reduction with proton pump inhibitor as well as the necessary lifestyle and diet accommodation including small and more frequent meals, avoidance of eating at night as well as head elevation while lying supine. She also needs to avoid caffeinated beverages, spicy, greasy and acidic foods. If she does have recurrence of dysphagia, we will have her follow up for further graded dilatation. Job ID: [id number] DocumentID: [id number] Dictated Date: 05/02/2019 11:03:16 [employer] Date: 05/02/2019 16:00:14 Dictated By: MAYELIN BRIGGS MD
== END 2019-05-02 12:10 | disposition home or self-care (01) ==
LOC: ENDO 08:49
PROVIDERS: ATTEND Surgery
DX: K21.9 Gastro-esophageal reflux disease without esophagitis (principal); K22.2 Esophageal obstruction; K44.9 Diaphragmatic hernia without obstruction or gangrene; K29.50 Unspecified chronic gastritis without bleeding; E03.9 Hypothyroidism, unspecified; K59.00 Constipation, unspecified; Z79.899 Other long term (current) drug therapy
CPT/HCPCS: 88305

== ENCOUNTER → 2019-08-07 | Outpatient (CLI) | payer MEDICARE ==
[~2019-08-07] MED LIST changes: +OMEP40CA36 PO
--- NOTE | 2019-08-07 10:48 | Diagnostic Imaging Report ---
CLINICAL INDICATION: The patient is having trouble with her balance. EXAM: MRI of the brain performed without IV contrast. Sequences include axial DWI, ADC map, axial T2, axial FLAIR, axial T1, axial gradient echo, and sagittal T1. COMPARISON: Head CT without contrast dated 05/11/2015. FINDINGS: There is no evidence of acute cerebral infarct, intracranial hemorrhage, or gross mass effect. The brain parenchymal volume appears appropriate for patient's age. There is diffuse focal, patchy, confluent areas of high T2 signal and white matter changes seen throughout both cerebral hemispheres, periventricular regions and chantal. There is normal zeng-white matter distinction. There is no significant midline shift or herniation. The [place] vascular structures show no gross abnormality as visualized. Empty sella turcica is seen. There is no evidence of hydrocephalus. The basal cisterns are unremarkable. The skull, extracranial soft tissue, and orbits are unremarkable. There is minimal mucosal thickening involving the ethmoid sinus. Temporal bones show no significant abnormality. IMPRESSION: 1: There is no evidence of acute intracranial process. 2: There is slight progression of diffuse chronic small vessel ischemic disease and leukocytosis. Dictated by: Dictated on workstation # [id number]
== END ==
LOC: RAD 08:14
PROVIDERS: ATTEND Family Medicine
DX: G62.9 Polyneuropathy, unspecified (principal); I67.82 Cerebral ischemia; D72.829 Elevated white blood cell count, unspecified; R29.6 Repeated falls; R27.0 Ataxia, unspecified
CPT/HCPCS: 70551

== ENCOUNTER → 2019-08-20 | Outpatient (CLI) | payer MEDICARE ==
--- NOTE | 2019-08-20 14:17 | Diagnostic Imaging Report ---
PROCEDURE: US carotid duplex, bilateral. TECHNIQUE: Multiple real-time grayscale images were obtained over the carotid arteries in various projections, bilaterally. Additional spectral analysis and color Doppler duplex images were also obtained. INDICATION: TIAs Perez scale images show some calcified plaque Origins and external carotid arteries bilaterally. The common internal carotid arteries are patent. There is no alteration of waveforms or velocities. Both vertebral arteries are patent with antegrade flow. IMPRESSION: Minimal calcific atherosclerosis of the external carotid arteries. There is no occlusion or hemodynamically significant stenosis. Parameters based on the consensus panel Perez-Scale and Doppler ultrasound criteria published August 2003, Radiology, Volume 229. DOPPLER (peak systolic velocity M/S Right Left CCA .65 .56 ICA Proximal .42 .52 ICA Mid .50 .50 ICA Distal .49 .68 RATIO .8 1.2 ECA .97 .83 VERT .34 .60 Dictated by: Dictated on workstation # [id number]
--- NOTE | 2019-08-20 16:34 | Diagnostic Imaging Report ---
INDICATION: Peripheral vascular disease, claudication. TECHNIQUE: Spectral Doppler imaging was performed to assess ankle-brachial indices. FINDINGS AND IMPRESSION: Ultrasound imaging was utilized in assessment of the posterior tibial and dorsalis pedis arteries on both sides. These measurements were used to calculate the ankle-brachial index which is 1.11 on the right and 1.02 on the left, both of these are normal. Dictated by: Dictated on workstation # [id number]
== END ==
LOC: RAD 10:10
PROVIDERS: ATTEND Family Medicine
DX: I67.82 Cerebral ischemia (principal); I63.9 Cerebral infarction, unspecified
CPT/HCPCS: 93880; 93922

== ENCOUNTER 2019-10-17 07:08 | Emergency (ER) | payer MEDICARE ==
[~2019-10-17] VITALS: Ht 175 cm; Wt 68.0 kg
[2019-10-17 08:13] LABS: BASOPHILS # (AUTO) 0.1 10^3/uL (0.0-0.1); BASOPHILS % (AUTO) 1 % (0-10); EOSINOPHILS % (AUTO) 0 % (0-10); HEMATOCRIT 44 % (35-52); HEMOGLOBIN 14.9 G/DL (11.5-16.0); LYMPHOCYTES # (AUTO) 1.1 X 10^3 (1.0-4.0); LYMPHOCYTES % (AUTO) 12 % (12-44); MEAN CORPUSCULAR HEMOGLOBIN 32 PG (25-34); MEAN CORPUSCULAR HGB CONC 34 G/DL (32-36); MEAN CORPUSCULAR VOLUME 95 FL (80-99); MEAN PLATELET VOLUME 10.3 FL (7.4-10.4); MONOCYTES # (AUTO) 0.3 X 10^3 (0.0-1.0); MONOCYTES % (AUTO) 3 % (0-12); NEUTROPHILS % (AUTO) 85 % (42-75); PLATELET COUNT 324 10^3/uL (130-400); RED CELL DISTRIBUTION WIDTH 13.2 % (10.0-14.5); WHITE BLOOD COUNT 9.5 10^3/uL (4.3-11.0)
[2019-10-17 08:35] LABS: ALANINE AMINOTRANSFERASE 15 U/L (0-55); ALBUMIN 4.6 GM/DL (3.2-4.5); ALKALINE PHOSPHATASE 60 U/L (40-136); BILIRUBIN,TOTAL 0.5 MG/DL (0.1-1.0); BUN/CREATININE RATIO 13; CALCIUM 10.1 MG/DL (8.5-10.1); CARBON DIOXIDE 22 MMOL/L (21-32); CHLORIDE 106 MMOL/L (98-107); CREATININE SERUM 0.94 MG/DL (0.60-1.30); GFR ESTIMATED 58; GLUCOSE 119 MG/DL (70-105); POTASSIUM 3.7 MMOL/L (3.6-5.0); SODIUM 142 MMOL/L (135-145); TOTAL PROTEIN 8.2 GM/DL (6.4-8.2)
[2019-10-17] MEDS ORDERED: LORazepam INJ 2 MG/ML (ATIVAN) VIAL IVP ONE (10:30)
--- NOTE | 2019-10-17 10:48 | ED General ---
General Chief Complaint: Dizziness/Syncope Stated Complaint: DIZZINESS Nursing Triage Note: PT PRESENTS TO ED WITH COMPLAINTS OF DIZZINESS STARTING AT 0330 THIS AM WHEN SHE TURNED OVER IN BED. PT REPORTS SHE TOOK A ANTIVERT TABLET AND WENT BACK TO BED BUT WHEN SHE WOKE UP THIS AM SHE CONTINUED TO BE DIZZY. PT REPORTS NO LIGHT HEADEDNESS, BUT DIZZINESS WITH MOVEMENT. Nursing Sepsis Screen: No Definite Risk Source of Information: Patient, Old Records Exam Limitations: No Limitations History of Present Illness Date Seen by Provider: Oct 17, 2019 Time Seen by Provider: 07:24 Initial Comments This 74-year-old woman presents to the emergency room with primary complaint of dizziness which is described primarily as a vertigo sensation. She notes the sensation is exacerbated with head movements. Symptoms started around 03:30. She took meclizine which did improve the symptoms some. She reports a prior episode of vertigo several years ago and being prone to motion sickness. She does not have any significant disequilibrium upon walking into the ER and she describes no other focal neurologic deficits. She is notably hypertensive as well. She reports her blood pressures at home have been in the 130s systolic. She claims white coat hypertension. She has had multiple recent imaging studies including CT scan and MRI of the head and carotid artery ultrasound. No significant abnormalities were identified. Allergies and Home Medications Allergies Coded Allergies: Penicillins (Verified Allergy, Intermediate, RASH, 11/11/12) azithromycin (Verified Adverse Reaction, Mild, NAUSEA, 04/11/13) gabapentin (Verified Adverse Reaction, Mild, DIZZY, 04/11/13) levofloxacin (Verified Adverse Reaction, Mild, NAUSEA, 04/11/13) temazepam (Verified Adverse Reaction, Unknown, UNSTEADY GAIT, 08/23/16) Uncoded Allergies: BETA BLOCKERS (Adverse Reaction, Mild, DIZZY, 04/11/13) Home Medications Levothyroxine Sodium 25 Mcg Tablet, 62.5 MCG PO DAILY, (Reported) take 2.5mg of 25mcg tab Omeprazole 40 Mg Capsule.dr, 40 MG PO DAILY Prescribed by: CORWIN MORALES on 05/02/19 9599 Patient Home Medication List Home Medication List Reviewed: Yes Review of Systems Review of Systems Constitutional: no symptoms reported EENTM: no symptoms reported Respiratory: no symptoms reported Cardiovascular: no symptoms reported Gastrointestinal: nausea Genitourinary: no symptoms reported : No Musculoskeletal: no symptoms reported Skin: no symptoms reported Psychiatric/Neurological: See HPI Hematologic/Lymphatic: No Symptoms Reported Immunological/Allergic: no symptoms reported Past Xdxjrsg-Cetcli-Yidoqn Hx Past Med/Social Hx: Reviewed and Corrections made Patient Social History Alcohol Use: Denies Use Recreational Drug Use: No Smoking Status: Never a Smoker 2nd Hand Smoke Exposure: No Recent Foreign Travel: No Contact w/Someone Who Travel: No Recent Infectious Disease Expo: No Recent Hopitalizations: No Physical Abuse: No Sexual Abuse: No Mistreated: No Fear: No Immunizations Up To Date Tetanus Booster (TDap): Unknown Date of Pneumonia Vaccine: Aug 31, 1998 Date of Influenza Vaccine: Jul 31, 2012 Seasonal Allergies Seasonal Allergies: No Past Medical History Surgeries: Yes (EYE x3, TEETH, EGD/COLONOSCOPIES, BUNIONECTOMY,) Appendectomy, Eye Surgery, Hysterectomy, Oophorectomy, Orthopedic Respiratory: No Cardiac: Yes Hypertension, Palpitations Neurological: Yes Neuropathy, Vertigo Reproductive Disorders: No CLEAN UP PERSON History: Hysterectomy, Menopausal Genitourinary: Yes UTI-Chronic Gastrointestinal: Yes Gastroesophageal Reflux, Polyps, Esophagitis, Ulcer Musculoskeletal: Yes Arthritis Endocrine: Yes Hypothyroidsim HEENT: Yes Cataract Cancer: No Psychosocial: Yes Anxiety Integumentary: No Blood Disorders: No Family Medical History No Pertinent Family Hx Physical Exam Vital Signs Vital Signs - First Documented 10/17/19 10/17/19 07:44 11:05 Temp 36.7 Pulse 98 Resp 16 B/P (MAP) 191/111 (137) Pulse Ox 97 O2 Delivery Room Air Capillary Refill : Less Than 3 Seconds Height, Weight, BMI Height: 5'9.00" Weight: 150lbs. 0.0oz. 68.782684xp; 22.00 BMI Method:Stated General Appearance: WD/WN, Anxious HEENT: PERRL/EOMI, TMs Normal, Normal ENT Inspection, Pharynx Normal Neck: Normal Inspection Respiratory: Lungs Clear, Normal Breath Sounds, No Accessory Muscle Use, No Respiratory Distress Cardiovascular: Regular Rate, Rhythm, No Edema, No Murmur, Normal Peripheral Pulses Gastrointestinal: Normal Bowel Sounds, Soft Extremity: Normal Inspection, No Pedal Edema Neurologic/Psychiatric: Alert, Oriented x3, No Motor/Sensory Deficits, Normal Mood/Affect, caddymaster II-XII Norm as Tested, Other (Normal finger to nose. Normal gait) Skin: Normal Color, Warm/Dry Progress/Results/Core Measures Suspected Sepsis Recent Fever Within 48 Hours: No Infection Criteria Present: None New/Unexplained Altered Menta: No Sepsis Screen: No Definite Risk SIRS Temperature: Pulse: 98 Respiratory Rate: 16 Laboratory Tests 10/17/19 08:00: White Blood Count 9.5 Blood Pressure 191 /111 Mean: 137 Laboratory Tests 10/17/19 08:00: Creatinine 0.94, Platelet Count 324, Total Bilirubin 0.5 Results/Orders Lab Results Laboratory Tests Test 10/17/19 08:00 Range/Units White Blood Count 9.5 4.3-11.0 10^3/uL Red Blood Count 4.63 4.35-5.85 10^6/uL Hemoglobin 14.9 11.5-16.0 G/DL Hematocrit 44 35-52 % Mean Corpuscular Volume 95 80-99 FL Mean Corpuscular Hemoglobin 32 25-34 PG Mean Corpuscular Hemoglobin Concent 34 32-36 G/DL Red Cell Distribution Width 13.2 10.0-14.5 % Platelet Count 324 130-400 10^3/uL Mean Platelet Volume 10.3 7.4-10.4 FL Neutrophils (%) (Auto) 85 H 42-75 % Lymphocytes (%) (Auto) 12 12-44 % Monocytes (%) (Auto) 3 0-12 % Eosinophils (%) (Auto) 0 0-10 % Basophils (%) (Auto) 1 0-10 % Neutrophils # (Auto) 8.0 H 1.8-7.8 X 10^3 Lymphocytes # (Auto) 1.1 1.0-4.0 X 10^3 Monocytes # (Auto) 0.3 0.0-1.0 X 10^3 Eosinophils # (Auto) 0.0 0.0-0.3 10^3/uL Basophils # (Auto) 0.1 0.0-0.1 10^3/uL Sodium Level 142 135-145 MMOL/L Potassium Level 3.7 3.6-5.0 MMOL/L Chloride Level 106 98-107 MMOL/L Carbon Dioxide Level 22 21-32 MMOL/L Anion Gap 14 5-14 MMOL/L Blood Urea Nitrogen 12 7-18 MG/DL Creatinine 0.94 0.60-1.30 MG/DL Estimat Glomerular Filtration Rate 58 BUN/Creatinine Ratio 13 Glucose Level 119 H 70-105 MG/DL Calcium Level 10.1 8.5-10.1 MG/DL Corrected Calcium 8.5-10.1 MG/DL Magnesium Level 2.0 1.6-2.4 MG/DL Total Bilirubin 0.5 0.1-1.0 MG/DL Aspartate Amino Transf (AST/SGOT) 25 5-34 U/L Alanine Aminotransferase (ALT/SGPT) 15 0-55 U/L Alkaline Phosphatase 60 40-136 U/L Total Protein 8.2 6.4-8.2 GM/DL Albumin 4.6 H 3.2-4.5 GM/DL Thyroid Stimulating Hormone (TSH) 15.33 H 0.35-4.94 UIU/ML Free Thyroxine 0.95 0.70-1.48 NG/DL My Orders Orders - ALFREDO WOLF MD Cbc With Automated Diff (10/17/19 07:53) Comprehensive Metabolic Panel (10/17/19 07:53) Magnesium (10/17/19 07:53) Thyroid Stimulating Hormone (10/17/19 07:53) Ed Iv/Invasive Line Start (10/17/19 07:53) Free T4 (Free Thyroxine) (10/17/19 08:13) Lorazepam Injection (Ativan Injection) (10/17/19 10:30) Vital Signs/I&O 10/17/19 11:05 Temp 36.7 Pulse 69 Resp 16 B/P (MAP) 161/92 (137) Pulse Ox 97 O2 Delivery Room Air Capillary Refill : Less Than 3 Seconds Blood Pressure Mean: 137 Progress Note : Progress Note Heidy Hallpike was faintly positive bilaterally. Karoline maneuver was performed bilaterally with some improvement. Case was discussed with Dr. Atwood. We elected to not treat her hypertension as she is very sensitive to medications and this is likely situational. She has an appointment with Dr. ATWOOD tomorrow and will have her blood pressure checked again then. Lab workup was unremarkable except for the TSH. This was discussed with Dr. ATWOOD. Departure Impression Primary Impression: Vertigo Additional Impressions: Hypothyroidism Qualified Codes: E03.9 - Hypothyroidism, unspecified Essential hypertension Disposition: 01 HOME, SELF-CARE Condition: Improved Departure-Patient Inst. Referrals: CHRISTEL ATWOOD DO (PCP/Family) Primary Care Physician Patient Instructions: High Blood Pressure in Adults, Vertigo (a Type of Di zziness) Add. Discharge Instructions: Keep your appointment with Dr. Atwood tomorrow. You may continue using meclizine as directed if it helps. You may repeat the Karoline maneuver at home if desired. Return to the emergency room if you have worsening symptoms or symptoms not relieved by meclizine or Valium at home. Emergently return to the emergency room if you develop neurologic deficits such as changes in vision, confusion, no weakness of an extremity, facial drooping, difficulty speaking, disequilibrium, or any other perceived neurologic deficits. All discharge instructions reviewed with patient and/or family. Voiced understanding. Copy Copies To 1: CHRISTEL ATWOOD JOSHUA T MD Oct 17, 2019 10:47
[2019-10-17 11:05] VITALS: BP 161/92
== END 2019-10-17 11:05 | disposition home or self-care (01) ==
LOC: EDUNIT# 07:08 → ER 07:09
DX: R42 Dizziness and giddiness (principal); E03.9 Hypothyroidism, unspecified; I10 Essential (primary) hypertension; G62.9 Polyneuropathy, unspecified; K21.0 Gastro-esophageal reflux disease with esophagitis; F41.9 Anxiety disorder, unspecified; Z87.440 Personal history of urinary (tract) infections; Z88.0 Allergy status to penicillin; Z88.1 Allergy status to other antibiotic agents; Z88.8 Allergy status to other drugs, medicaments and biological substances; Z90.49 Acquired absence of other specified parts of digestive tract; Z90.710 Acquired absence of both cervix and uterus
CPT/HCPCS: 36415; 80053; 83735; 84439; 84443; 85025

== ENCOUNTER 2021-01-28 05:35 | Outpatient (CLI) | payer MEDICARE ==
[~2021-01-28] VITALS: Ht 175.3 cm; Wt 68.0 kg
[~2021-01-28 05:35] MED LIST changes: +OMEP40CA27 PO; -OMEP40CA36 PO
[2021-01-28] MEDS ORDERED: ASPI-999 PO (13:53)
[2021-01-28] MEDS ORDERED: LEVO50TA6 PO (13:53)
[2021-01-28] MEDS ORDERED: CHOL-34 PO (13:53)
== END 2021-01-28 13:55 | disposition home or self-care (01) ==
LOC: PREOP 05:35
PROVIDERS: ATTEND Specialist
DX: Z01.818 Encounter for other preprocedural examination (principal)

== ENCOUNTER 2021-01-30 08:47 | Day surgery (SDC) | payer MEDICARE ==
[~2021-01-30] VITALS: Ht 175.3 cm; Wt 68.0 kg
[~2021-01-30 08:47] MED LIST changes: +ASPI-999 PO; +CHOL-34 PO
[2021-01-30] MEDS ORDERED: TROPICAMIDE 1% OPH SOLN (MYDRIACYL) 15 ML BTL OU PRN (09:00)
[2021-01-30] MEDS ORDERED: PHENYLEPHRINE 10% OPHTH (NEO-SYN) 5 ML BTL OU PRN (09:00)
[2021-01-30 09:09] VITALS: BP 170/92
[2021-01-30] MEDS: TETRACAINE 0.5% OPHTH SOLN 4 ML BTL (SINGLE DOSE ONLY) OU PRN ×3 (09:16→09:25)
--- NOTE | 2021-01-30 09:24 | Ophthalmologist Pre-Op Note ---
Pre-Operative Progress Note H&P Reviewed The H&P was reviewed, patient examined and no changes noted. Date H&P Reviewed: Jan 30, 2021 Time H&P Reviewed: 09:24 Pre-Op Dx Secondary Cataract, Right Eye LIBRA SANDERSON MD Jan 30, 2021 09:24
[2021-01-30 09:30] VITALS: BP 170/92
--- NOTE | 2021-01-30 09:33 | Ophthalmology Operative Report ---
YAG Capsulotomy PREOPERATIVE DIAGNOSIS: Secondary Cataract Right Eye POSTOPERATIVE DIAGNOSIS: Secondary Cataract Right Eye PROCEDURE: YAG Capsulotomy, right eye SURGEON: Manny Sanderson ANESTHESIA: Topical anesthesia COMPLICATIONS: None ESTIMATED BLOOD LOSS: Minimal DESCRIPTION OF PROCEDURE: After proper informed consent was obtained, the patient's, a 75 female, right eye received one drop of Tropicamide and one drop of Tetracaine. The patient was then placed at the YAG laser and using a power of [ 3.6] millijoules and [ 16] bursts were used to fashion a central capsulotomy. The patient tolerated the procedure well without complications. MANNY SANDERSON MD Jan 30, 2021 09:33
== END 2021-01-30 09:30 ==
LOC: SDC 08:47
PROVIDERS: ATTEND Specialist
DX: H26.491 Other secondary cataract, right eye (principal); E03.9 Hypothyroidism, unspecified; Z79.899 Other long term (current) drug therapy; Z88.0 Allergy status to penicillin; Z88.1 Allergy status to other antibiotic agents; Z88.8 Allergy status to other drugs, medicaments and biological substances

== ENCOUNTER 2021-11-12 14:09 | Inpatient (IN) | payer MEDICARE ==
[~2021-11-12] VITALS: Ht 170 cm; Wt 68.0 kg
[~2021-11-12 14:09] MED LIST changes: -OMEP40CA27 PO; +OMEP40CA6 PO
--- NOTE | 2021-11-12 15:10 | Diagnostic Imaging Report ---
EXAMINATION: Right ankle radiographs, 3 views. COMPARISON: None. HISTORY: 76-year-old female, right ankle pain. FINDINGS: There is a comminuted displaced fracture of the distal tibia extending from the level of the distal tibial diaphysis to the articulating surface of the tibial plafond. Intra-articular fracture extension is better seen on the lateral view. There is no gross offset of the articulating surface of the distal tibia. At the more proximal aspect of the fracture at the level of the distal tibial diaphysis, the primary distal fracture fragment is displaced laterally by 2.1 cm. There is also a comminuted displaced distal fibular diaphyseal fracture with anterior to posterior splaying of fracture fragments and medial angulation of the primary distal fracture fragment. There is also medial angulation of the primary distal fracture fragment of the tibia. The alignment of the ankle mortise is unremarkable. There is no large tibiotalar joint effusion. There is degenerative type enthesopathy at the Achilles tendon insertion. IMPRESSION: 1. Comminuted displaced fractures of the distal tibia and fibula, as mentioned above. The distal tibial fracture does include intra-articular fracture extension without gross offset of the articulating surface. 2. The ankle mortise is unremarkable in alignment. Dictated by: Dictated on workstation # [id number]
--- NOTE | 2021-11-12 15:29 | ED Lower Extremity ---
General Chief Complaint: Lower Extremity Stated Complaint: ANKLE PAIN Nursing Triage Note: TO ED PER EMS FROM HOME WAS AT HOME AND TWISTED R ANKLE UNABLE TO PUT ISMAEL WT ON LEG. Source: patient Exam Limitations: no limitations History of Present Illness Date Seen by Provider: Nov 12, 2021 Time Seen by Provider: 14:15 Initial Comments Patient is a 76-year-old female who presents to the emergency department today with a chief complaint of right distal leg/ankle pain. Patient was outside, missed stepped, twisted and fell against a van. She immediately had pain in the right leg. Unable to bear weight. She states she did hit her head against the van door. No loss of consciousness. No other complaints of recent illness or injury. Denies loss of sensation to the right foot. No history of previous fractures. Specifically denies knee pain/proximal fibula pain Last ate lunch at noon and had a little water at 2:30 PM. Currently declining pain medication. All other review of systems reviewed and negative except as stated. Onset: just prior to arrival Severity: moderate Pain/Injury Location: right ankle Method of Injury: twisted Modifying Factors: Improves With Immobilization; Worse With Jarring, Worse With Movement; Improves With Rest Allergies and Home Medications Allergies Coded Allergies: Penicillins (Verified Allergy, Intermediate, RASH, 11/11/12) azithromycin (Verified Adverse Reaction, Mild, NAUSEA, 04/11/13) gabapentin (Verified Adverse Reaction, Mild, DIZZY, 04/11/13) levofloxacin (Verified Adverse Reaction, Mild, NAUSEA, 04/11/13) temazepam (Verified Adverse Reaction, Unknown, UNSTEADY GAIT, 08/23/16) Uncoded Allergies: BETA BLOCKERS (Adverse Reaction, Mild, DIZZY, 04/11/13) Patient Home Medication List Home Medication List Reviewed: Yes Acetaminophen (Tylenol Extra Strength) 500 Mg Tablet, 500-1,000 MG PO Q8H PRN for PAIN-MILD (1-4), (Reported) Entered as Reported by: MARQUISE HASSAN on 11/13/21 1022 Last Action: Reviewed Aspirin (Aspirin EC) 81 Mg Tablet.dr, 81 MG PO DAILY, (Reported) Entered as Reported by: MARQUISE HASSAN on 11/13/21 1022 Last Action: Continued Benzocaine/Resorcinol (Ra Vagicaine Cream) 28 Gm Cream..g., 1 APPLIC TP TID PRN for VAGINITIS, (Reported) Entered as Reported by: MARQUISE HASSAN on 11/13/21 102 Last Action: Held Cholecalciferol (Vitamin D3) (Vitamin D3) 25 Mcg Tablet, 25 MCG PO DAILY, (Reported) Entered as Reported by: KJ CINTRON on 01/28/21 1353 Last Action: Held Diazepam (Diazepam) 5 Mg Tablet, 2.5-5 MG PO HS, (Reported) Entered as Reported by: MARQUISE HASSAN on 11/13/21 102 Last Action: Continued Duloxetine HCl (Duloxetine HCl) 60 Mg Capsule.dr, 60 MG PO DAILY, (Reported) Entered as Reported by: MARQUISE HASSAN on 11/13/211021 Last Action: Converted Levothyroxine Sodium (Levothyroxine Sodium) 25 Mcg Tablet, 50 MCG PO VARMA,TU,WE,FR,SA, (Reported) Entered as Reported by: MARQUISE HASSAN on 11/13/211021 Last Action: Continued Levothyroxine Sodium (Levothyroxine Sodium) 25 Mcg Tablet, 75 MCG PO ELTON CONCEPCION, (Reported) Entered as Reported by: MARQUISE HASSAN on 11/13/21 102 Last Action: Reviewed Meclizine HCl (Meclizine HCl) 25 Mg Tablet, 25 MG PO Q8H PRN for VERTIGO, (Reported) Entered as Reported by: MARQUISE HASSAN on 11/13/211021 Last Action: Continued Pediatric Multivit Comb No.42 (Flintstones) 1 Each Tab.chew, 1 EACH PO BID, (Reported) Entered as Reported by: MARQUISE HASSAN on 11/13/21 102 Last Action: Converted Polyethylene Glycol 3350 (Miralax) 17 Gm Powd.pack, 17 GM PO DAILY, (Reported) Entered as Reported by: MARQUISE HASSAN on 11/13/21 102 Last Action: Continued Sucralfate (Sucralfate) 1 Gm Tablet, 0.5 GM PO DAILY PRN for GERD, (Reported) Entered as Reported by: MARQUISE HASSAN on 11/13/21 102 Last Action: Continued Discontinued Medications Levothyroxine Sodium (Levothyroxine Sodium) 50 Mcg Tablet, 50 MCG PO DAILY, (Reported) Discontinued Reason: Prescription changed Entered as Reported by: KJ CINTRON on 01/28/21 0904 Review of Systems Constitutional: see HPI EENTM: no symptoms reported Respiratory: no symptoms reported Cardiovascular: no symptoms reported Gastrointestinal: no symptoms reported Genitourinary: no symptoms reported Musculoskeletal: joint pain (Right ankle) Skin: no symptoms reported All Other Systems Reviewed Negative Unless Noted: Yes Past Mqepzuk-Ahkqsg-Zfdwhm Hx Patient Social History Tobacco Use?: No Substance use?: No Immunizations Up To Date Tetanus Booster (TDap): Unknown First/Initial COVID19 Vaccinat: OCT Second COVID19 Vaccination Deepak: DEC 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: [employer] Seasonal Allergies Seasonal Allergies: No Past Medical History Surgeries: Yes (EYE x3, TEETH, EGD/COLONOSCOPIES, BUNIONECTOMY,) Appendectomy, Eye Surgery, Hysterectomy, Oophorectomy, Orthopedic Respiratory: No Cardiac: Yes Hypertension, Palpitations Neurological: Yes Neuropathy, Vertigo 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 0.0oz. [id number]; 22.00 BMI Method:Stated General Appearance: WD/WN, no apparent distress HEENT: PERRL/EOMI Neck: normal inspection Cardiovascular: regular rate, rhythm Respiratory: lungs clear, normal breath sounds, no respiratory distress, no accessory muscle use Hips: bilateral hip non-tender, bilateral hip normal inspection, bilateral hip normal range of motion, bilateral hip no evidence of injury Legs: right leg bone tenderness, right leg ecchymosis, right leg pain (Distal tib-fib), right leg soft tissue tenderness (Distal tib-fib), right leg swelling (Mild, distal tib-fib) Knees: bilateral knee non-tender, bilateral knee normal inspection, bilateral knee normal range of motion, bilateral knee no evidence of injury Ankles: left ankle non-tender, left ankle normal inspection, left ankle normal range of motion, left ankle no evidence of injury; right ankle bone tenderness (Lateral malleolus), right ankle limited range of motion, right ankle pain, right ankle soft tissue tenderness Feet: bilateral foot non-tender, bilateral foot normal inspection, bilateral foot normal range of motion, bilateral foot no evidence of injury Neurologic/Tendon: normal sensation Neurologic/Psychiatric: alert, normal mood/affect, oriented x 3 Skin: normal color, other (Ecchymosis distal medial tib-fib) Procedures/Interventions Splinting and Joint Reduction : Location: right distal tib fib Pre-Proc Neuro Vasc Exam: normal Post-Proc Neuro Vasc Exam: normal Progress patient requested that her distal foot remain "free" from orthoglass splint secondary to severe neuropathy, therefore the splint was stopped at midfoot. distal NVI after splint placement, good cap refill. Foot nearly 90deg/ good positioning Hand-Made Type: orthoglass Splint Application: Short Leg Progress/Results/Core Measures Results/Orders My Orders Orders - ALYSIA GILL MD Ankle, Right, 3 Views (11/12/21 14:34) Tibia/Fibula, Right, 2 Views (11/12/21 14:34) Vital Signs/I&O 11/12/21 14:09 Pulse 86 Resp 18 B/P (MAP) 148/72 (97) Pulse Ox 98 O2 Delivery Room Air Blood Pressure Mean: 97 Admisison Planning May Need Admission (Planning): 15:29 Progress Progress Note #1: Time: 15:29 Progress Note Initial call to Dr Reyes; unavailable/didnt answer Progress Note #2: Time: 15:46 Progress Note admit observation. will fix in am Initial ECG Impression Date: Nov 12, 2021 Initial ECG Impression Time: 16:10 Initial ECG Rate: 88 Initial ECG Rhythm: Normal Sinus Initial ECG Intervals NV 115 QRS 112 QTc 495 Initial ECG Impression: Normal Comment Q waves inferiorly and across the precordium, incomplete right bundle branch block, no ST segment elevation or depression is noted Diagnostic Imaging Diagonstic Imaging: Xray Comments [facility] [place], [place] NAME: JIMMY KNAPP [facility] REC#: [id number] PT STATUS: REG ER : 1945 PHYSICIAN: ALYSIA GILL MD ADMIT DATE: 11/12/21/ER Draft Date of Exam:11/12/21 ANKLE, RIGHT, 3 VIEWS EXAMINATION: Right ankle radiographs, 3 views. COMPARISON: None. HISTORY: 76-year-old female, right ankle pain. FINDINGS: There is a comminuted displaced fracture of the distal tibia extending from the level of the distal tibial diaphysis to the articulating surface of the tibial plafond. Intra-articular fracture extension is better seen on the lateral view. There is no gross offset of the articulating surface of the distal tibia. At the more proximal aspect of the fracture at the level of the distal tibial diaphysis, the primary distal fracture fragment is displaced laterally by 2.1 cm. There is also a comminuted displaced distal fibular diaphyseal fracture with anterior to posterior splaying of fracture fragments and medial angulation of the primary distal fracture fragment. There is also medial angulation of the primary distal fracture fragment of the tibia. The alignment of the ankle mortise is unremarkable. There is no large tibiotalar joint effusion. There is degenerative type enthesopathy at the Achilles tendon insertion. IMPRESSION: 1. Comminuted displaced fractures of the distal tibia and fibula, as mentioned above. The distal tibial fracture does include intra-articular fracture extension without gross offset of the articulating surface. 2. The ankle mortise is unremarkable in alignment. Dictated on workstation # [id number] Dict: 11/12/21 1501 Trans: 11/12/21 1510 [facility] [id number] Interpreted by: GREG GUZMAN MD Electronically signed by: [facility] [place] [place] NAME: JIMMY KNAPP [facility] REC#: [id number] PT STATUS: REG ER : 1945 PHYSICIAN: ALYSAI GILL MD ADMIT DATE: 11/12/21/ER Signed Date of Exam:11/12/21 TIBIA/FIBULA, RIGHT, 2 VIEWS EXAMINATION: Right tibia and fibula radiograph. EXAM DATE: 11/12/2021. COMPARISON: None available. HISTORY: Right leg pain after fall. TECHNIQUE: Four views of the right tibia and fibula. FINDINGS: There is an acute displaced spiral fracture of the distal right tibia. There is at least 2.1 cm of lateral displacement of the distal fracture fragment. There is a tiny avulsed fragment seen along the medial aspect of the tibial fracture. There is a mildly angulated acute complex fracture of the distal fibula with 0.2 cm of posterior and 0.2 cm of medial displacement of the distal fibula. There is soft tissue swelling within the distal right lower extremity. IMPRESSION: 1. Acute spiral fracture of the distal right tibia. 2. Complex acute displaced fracture of the distal right fibula. Dictated by: Dictated on workstation # [id number] Dict: 11/12/21 1518 Trans: 11/12/211615 AS6 [id number] Interpreted by: LAUREN LIND DO Electronically signed by: LAUREN LIND DO 11/12/216 [facility] [place], [place] NAME: JIMMY KNAPP [facility] REC#: [id number] PT STATUS: REG ER : 1945 PHYSICIAN: ALYSIA GILL MD ADMIT DATE: 11/12/21/ER Draft Date of Exam:11/12/21 CHEST 1 VIEW, AP/PA ONLY INDICATION: Preop. COMPARISON: Exam compared to 12/31/2017. FINDINGS: There is trace scarring or atelectasis in the left lung base. No evidence of pneumonia or edema. No failure pattern. Cardiomediastinal and hilar contours are normal. No chest fracture. IMPRESSION: Mild left basilar opacity, likely scarring versus subsegmental atelectasis. An acute-appearing cardiopulmonary abnormality is not identified. Dictated on workstation # [id number] Dict: 11/12/21 1604 Trans: 11/12/211609 AS6 [id number] Interpreted by: TEMI MONTES Electronically signed by: [employer] (Admissions) Time/Spoke to Admitting Phy: 15:[address] Reyes Impression Primary Impression: Fracture of tibia and fibula Qualified Codes: S82.201A - Unspecified fracture of shaft of right tibia, initial encounter for closed fracture; S82.401A - Unspecified fracture of shaft of right fibula, initial encounter for closed fracture Disposition: ADMITTED INPATIENT Condition: Stable Admissions Decision to Admit Reason: Admit from ER (Trauma) Decision to Admit/Date: Nov 12, 2021 Time/Decision to Admit Time: 15:47 Departure-Patient Inst. Referrals: CHRISTEL BATISTA DO (PCP/Family) Primary Care Physician ALYSIA GILL MD Nov 12, 2021 15:29
[2021-11-12] MEDS ORDERED: fentaNYL INJ 100 MCG/2 ML AMP IVP ONE (16:00)
[2021-11-12] MEDS ORDERED: ONDANSETRON 4 MG/2 ML (SDV) Z0FRAN IVP ONE (16:00)
--- NOTE | 2021-11-12 16:11 | Diagnostic Imaging Report ---
INDICATION: Preop. COMPARISON: Exam compared to 12/31/2017. FINDINGS: There is trace scarring or atelectasis in the left lung base. No evidence of pneumonia or edema. No failure pattern. Cardiomediastinal and hilar contours are normal. No chest fracture. IMPRESSION: Mild left basilar opacity, likely scarring versus subsegmental atelectasis. An acute-appearing cardiopulmonary abnormality is not identified. Dictated by: Dictated on workstation # [id number]
[2021-11-12] MEDS ORDERED: ACETAMINOPHEN 500 MG TAB (TYLENOL) PO ONE (16:15)
[2021-11-12 16:20] LABS: BASOPHILS # (AUTO) 0.1 10^3/uL (0.0-0.1); BASOPHILS % (AUTO) 1 % (0-10); EOSINOPHILS # (AUTO) 0.2 10^3/uL (0.0-0.3); EOSINOPHILS % (AUTO) 1 % (0-10); HEMATOCRIT 41 % (35-52); HEMOGLOBIN 14.1 g/dL (11.5-16.0); LYMPHOCYTES # (AUTO) 1.3 10^3/uL (1.0-4.0); LYMPHOCYTES % (AUTO) 9 % (12-44); MEAN CORPUSCULAR HEMOGLOBIN 33 pg (25-34); MEAN CORPUSCULAR HGB CONC 34 g/dL (32-36); MEAN CORPUSCULAR VOLUME 96 fL (80-99); MEAN PLATELET VOLUME 10.1 fL (9.0-12.2); MONOCYTES # (AUTO) 0.6 10^3/uL (0.0-1.0); MONOCYTES % (AUTO) 4 % (0-12); NEUTROPHILS # (AUTO) 11.4 10^3/uL (1.8-7.8); NEUTROPHILS % (AUTO) 84 % (42-75); PLATELET COUNT 299 10^3/uL (130-400); WHITE BLOOD COUNT 13.6 10^3/uL (4.3-11.0)
[2021-11-12 16:33] LABS: POTASSIUM 3.8 MMOL/L (3.6-5.0)
[2021-11-12 16:34] LABS: CALCIUM 9.8 MG/DL (8.5-10.1)
[2021-11-12 16:39] LABS: CREATININE SERUM 1.03 MG/DL (0.60-1.30)
[2021-11-12 17:41] VITALS: BP 165/81
[2021-11-12] MEDS ORDERED: ONDANSETRON 4 MG/2 ML (SDV) Z0FRAN IVP PRN (18:00)
[2021-11-12] MEDS ORDERED: fentaNYL INJ 100 MCG/2 ML AMP IVP PRN ×2 (18:00)
[2021-11-12] MEDS: NS IV 1000 ML 1,000 ML IV SCH (18:42)
[2021-11-12 19:26] VITALS: BP 137/70
[2021-11-13] VITALS (12 sets, daily range): BP systolic 96–161; BP diastolic 55–86
[2021-11-13] MEDS: NS IV 1000 ML 1,000 ML IV SCH (08:26)
[2021-11-13] MEDS ORDERED: PEDI1TAB36 PO (10:22)
[2021-11-13] MEDS ORDERED: ACET-2267 PO (10:22)
[2021-11-13] MEDS ORDERED: ASPI-1238 PO (10:22)
[2021-11-13] MEDS ORDERED: POLY17PO6 PO (10:22)
[2021-11-13] MEDS ORDERED: DIAZ5TAB49 PO (10:22)
[2021-11-13] MEDS ORDERED: BENZ28CR TP (10:22)
[2021-11-13] MEDS ORDERED: LEVO25TA5 PO ×2 (10:22)
[2021-11-13] MEDS ORDERED: SUCR1TAB PO (10:22)
[2021-11-13] MEDS ORDERED: MECL-149 PO (10:22)
[2021-11-13] MEDS ORDERED: DULO60CA59 PO (10:22)
--- NOTE | 2021-11-13 11:21 | History & Physical Orthopedic ---
History and Physical Subjective Date of Exam 11/13/21 Chief Complaint Right Leg injury HPI/Events since last exam Fall from standing height, twisting moment with leg, presented to ER and was diagnosed with distal right tibia/fibula fracture. I was asked to manage the fractures. 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 Genitourinary: Yes UTI-Chronic Gastrointestinal: Yes Gastroesophageal Reflux, Polyps, Esophagitis, Ulcer Musculoskeletal: Yes Arthritis Endocrine: Yes Hypothyroidsim HEENT: Yes Cataract Cancer: No Psychosocial: Yes Anxiety Integumentary: No Blood Disorders: No Social History Lives with Family History Noncontributory Review of Systems Not obtained Allergies: Coded Allergies: Penicillins (Verified Allergy, Intermediate, RASH, 11/11/12) azithromycin (Verified Adverse Reaction, Mild, NAUSEA, 04/11/13) gabapentin (Verified Adverse Reaction, Mild, DIZZY, 04/11/13) levofloxacin (Verified Adverse Reaction, Mild, NAUSEA, 04/11/13) temazepam (Verified Adverse Reaction, Unknown, UNSTEADY GAIT, 08/23/16) Uncoded Allergies: BETA BLOCKERS (Adverse Reaction, Mild, DIZZY, 04/11/13) Home Meds Reported Medications Meclizine HCl (Meclizine HCl) 25 Mg Tablet, 25 MG PO Q8H PRN for VERTIGO, TAB 11/13/21 Pediatric Multivit Comb No.42 (Flintstones) 1 Each Tab.chew, 1 EACH PO BID, TAB 11/13/21 Benzocaine/Resorcinol (Ra Vagicaine Cream) 28 Gm Cream..g., 1 APPLIC TP TID PRN for VAGINITIS, EA 11/13/21 Acetaminophen (Tylenol Extra Strength) 500 Mg Tablet, 500-1000 MG PO Q8H PRN for PAIN-MILD (1-4), TAB 11/13/21 Polyethylene Glycol 3350 (Miralax) 17 Gm Powd.pack, 17 GM PO DAILY, EACH 11/13/21 Diazepam (Diazepam) 5 Mg Tablet, 2.5-5 MG PO HS, TAB 11/13/21 Sucralfate (Sucralfate) 1 Gm Tablet, 0.5 GM PO DAILY PRN for GERD, TAB TAKES OF A 1GM TAB 11/13/21 Duloxetine HCl (Duloxetine HCl) 60 Mg Capsule.dr, 60 MG PO DAILY, CAP 11/13/21 Levothyroxine Sodium (Levothyroxine Sodium) 25 Mcg Tablet, 75 MCG PO MON,THUR, TAB TAKES 3 (25MCG) TABS 11/13/21 Aspirin (Aspirin EC) 81 Mg Tablet.dr, 81 MG PO DAILY, TAB 11/13/21 Levothyroxine Sodium (Levothyroxine Sodium) 25 Mcg Tablet, 50 MCG PO VARMA,TU,WE,FR,SA, TAB TAKES 2 (25MCG) TABS 11/13/21 Cholecalciferol (Vitamin D3) (Vitamin D3) 25 Mcg Tablet, 25 MCG PO DAILY, TAB 01/28/21 Discontinued Reported Medications Levothyroxine Sodium (Levothyroxine Sodium) 50 Mcg Tablet, 50 MCG PO DAILY, TAB 01/28/21 Objective Exam Right Leg: Posterior splint in place, toes flex and extend, cap refill brisk, sensation grossly intact to light touch Vital Signs Vital Signs Date Time Temp Pulse Resp B/P (MAP) Pulse Ox O2 Delivery O2 Flow Rate FiO2 11/13/21 08:49 36.9 79 18 161/78 (105) 90 Room Air 11/13/21 08:00 Room Air 11/13/21 04:00 36.6 78 20 134/69 (90) 96 Room Air 11/13/21 00:53 36.9 78 18 126/79 (95) 96 Room Air 11/12/21 20:55 Room Air 11/12/21 19:26 36.7 80 18 137/70 (92) 94 Room Air 11/12/21 18:14 Room Air 11/12/21 17:41 37.4 77 20 165/81 (109) 96 Room Air 11/12/21 14:09 86 18 148/72 (97) 98 Room Air I & O 11/13/21 07:00 Intake Total 650 ml Output Total 200 ml Balance 450 ml Lab Results Laboratory Tests 11/12/21 16:15: White Blood Count 13.6H, Red Blood Count 4.32, Hemoglobin 14.1, Hematocrit 41, Mean Corpuscular Volume 96, Mean Corpuscular Hemoglobin 33, Mean Corpuscular Hemoglobin Concent 34, Red Cell Distribution Width 12.6, Platelet Count 299, Mean Platelet Volume 10.1, Immature Granulocyte % (Auto) 0, Neutrophils (%) (Auto) 84H, Lymphocytes (%) (Auto) 9L, Monocytes (%) (Auto) 4, Eosinophils (%) (Auto) 1, Basophils (%) (Auto) 1, Neutrophils # (Auto) 11.4H, Lymphocytes # (Auto) 1.3, Monocytes # (Auto) 0.6, Eosinophils # (Auto) 0.2, Basophils # (Auto) 0.1, Immature Granulocyte # (Auto) 0.1, Sodium Level 140, Potassium Level 3.8, Chloride Level 103, Carbon Dioxide Level 25, Anion Gap 12, Blood Urea Nitrogen 19H, Creatinine 1.03, Estimat Glomerular Filtration Rate 56, BUN/Creatinine Ra shana 18, Glucose Level 124H, Calcium Level 9.8 11/13/21 05:09: SARS-CoV-2 RNA (RT-PCR) Not Detected Imaging 2 views of the right tib/fib demonstrate a distal short spiral tibial fracture at the junction of the diaphysis/metaphysis, associated comminuted fibula fracture Assessment and Plan Assessment Right Distal Tibia/Fibula Fractures Problem List Right Distal Tibia/Fibula Fractures Plan I have recommended ORIF of the tibia fracture with possible ORIF of the fibula fracture. Nature of the procedure and the postoperative course were discussed. Risks and benefits were discussed. Timeline for healing and activity restrictio ns after procedure were discussed. Plan to proceed later today. Final Diagonsis Right Distal Tibia/Fibula Fractures Level of the visit: Level 3 (preop obs) NICKOLAS DOUGHERTY MD Nov 13, 2021 11:21
[2021-11-13] MEDS ORDERED: CLINDAMYCIN 600 MG/50 ML IVPB 50 ML IV ONE (11:30)
[2021-11-13] MEDS ORDERED: BUPIVACAINE 0.25% 30 ML (SENSORCAINE) VIAL ONE (11:41)
[2021-11-13] MEDS: LACTATED RINGERS 1,000 ML IV PRN ×2 (11:50→13:46)
[2021-11-13] MEDS ORDERED: fentaNYL INJ 100 MCG/2 ML AMP ONE ×2 (11:59→14:00)
[2021-11-13] MEDS ORDERED: LIDOCAINE PF 2% 5 ML (XYLOCAINE) VIAL ONE (11:59)
[2021-11-13] MEDS ORDERED: proPOfol 200 MG/20 ML (DIPRIVAN) VIAL IV ONE (11:59)
[2021-11-13] MEDS ORDERED: SEVOFLURANE (ULTANE) 15 ML INHAL SOLN ONE ×5 (11:59→14:29)
[2021-11-13] MEDS ORDERED: ONDANSETRON 4 MG/2 ML (SDV) Z0FRAN ONE (11:59)
[2021-11-13] MEDS ORDERED: MECLIZINE 25 MG (ANTIVERT) TAB PO PRN (14:45)
[2021-11-13] MEDS ORDERED: ONDANSETRON 4 MG/2 ML (SDV) Z0FRAN IVP PRN (14:45)
[2021-11-13] MEDS ORDERED: SUCRALFATE 1 GM (CARAFATE) TAB PO PRN (14:45)
[2021-11-13] MEDS ORDERED: morphine INJ 10 MG/ML 1ML (SYR OR VIAL) IVP ONE (14:45)
[2021-11-13] MEDS ORDERED: PROMETHAZINE INJ 25 MG/ML (PHENERGAN) AMP IVP ONE (14:45)
--- NOTE | 2021-11-13 14:46 | Diagnostic Imaging Report ---
INDICATION: Fracture. ORIF. COMPARISON: 11/12/2021. TOTAL FLUORO TIME: 29 seconds. TOTAL NUMBER OF FLUOROSCOPIC IMAGE SAVED: 3 FINDINGS: Multiple intraoperative image-intensifier views of the right distal tibia and fibula were obtained during ORIF. Images provided show orthopedic sideplate and screws extending along the mid and distal portions of the right tibia. As a result, there is improved anatomic alignment of the fracture fragments. Please note, interpreting radiologist was not present during the procedure. Distal fibular fracture is also again noted. IMPRESSION: 1. Fluoroscopic guidance provided during ORIF of the right tibia. Dictated by: Dictated on workstation # [id number]
--- NOTE | 2021-11-13 14:55 | Operative Report - Ortho ---
Operative Report Surgeon (s)/Bakery Team Leader (s) Surgeon NICKOLAS DOUGHERTY MD Bakery Team Leader n/a Pre-Operative Diagnosis Right Distal Tibia and Fibula Fractures Post-Operative Diagnosis same Operative Report Date of Procedure: Nov 13, 2021 Name of Procedure Performed: 1) Open Reduction and Internal Fixation of Right Distal Tibia Fracture with Intraarticular Extension 2) Closed Treatment of Right Fibular Shaft Fracture Description & Findings After obtaining informed consent and marking the patient in the preoperative holding area, patient was administered IV antibiotics. Patient was taken to the operating room and general anesthesia was induced. Surgical timeout was taken. The right lower extremity was prepped and draped in the usual sterile fashion. Incison was made over the tibial crest and curving toward the medial side dista lly. Blunt dissection was carried down to fascia. Saphenous nerve and vein were protected distally. Fascia was sharply incised medial to the tibialis anterior. Fracture site was exposed, irrigated, curretted, and provisionally reduced with bone clamps. 2 K-wires were then placed for provisional fixation. A distal medial tibial plate was selected and placed on the bone. A wire was placed through the plate proximally and distally. Position of the plate was confirmed with C-arm. Nonlocking screws were then placed distally and proximally. C-arm was used to verify reduction in the AP, oblique, and lateral planes. Multiple locking screws were then placed 3 proximally and 6 distally; all locking screws were drilled through the provided drill sleeve and then placed by hand. The initial distal nonlocking screw was removed and a locking screw was used in its place. A 4th screw was placed proximally and secondary to it being near the start of the spiral fracture site, it was elected that it would be unicortical. Once all screws were placed, the bone clamp and wires were removed. C-arm was used to obtain imaging and demonstrated adequate reduction of the fracture with appropriate position of the hardware; the intraarticular extension remained without stepoff. The fibula was examined and demonstrated appropriate reduction of a significantly comminuted fibular shaft fracture; given overall alignment, it was elected to treat the fibula fracture in closed fashion. Wound was irrigated with normal saline. Demineralized bone matrix was packed in and around the fracture site. Wound was closed in layered fashion with 0 vicryl, 2-0 vicryl, 3-0 vicryl, and 3-0 nylon. Wound was injected subcutaneously with local anesthetic. Wound was dressed with xeroform, 4x4s, AB D, webril, posterior splint, and DANIEL wraps. Patient tolerated the procedure well and was stable to the recovery room. Anesthesia Type General Estimated Blood Loss 50 mL Specimen(s) collected/removed None NICKOLAS DOUGHERTY MD Nov 13, 2021 14:55
[2021-11-13] MEDS ORDERED: [UNRECOGNIZED DRUG - OTHER] PO SCH (21:00)
[2021-11-13] MEDS: DIAZEPAM 5 MG (VALIUM) TABLET PO SCH (21:15)
[2021-11-14 03:55] VITALS: BP 108/56
[2021-11-14] MEDS: LEVOTHYROXINE 25 MCG (LEVOTHROID) TAB PO SCH (06:39)
[2021-11-14] MEDS: MULTIVITAMINS LIQUID 15 ML UDC PO SCH (06:40)
--- NOTE | 2021-11-14 07:23 | Progress Note - Ortho ---
Progress Note Subjective Date of Exam 11/14/21 Chief Complaint POD #1 ORIF R Tibia Fx HPI/Events since last exam Has some ongoing cramping and burning pain, not asking for medication secondary to concerns about confusion/mental status Review of Systems - Allergies: Coded Allergies: Penicillins (Verified Allergy, Intermediate, RASH, 11/11/12) azithromycin (Verified Adverse Reaction, Mild, NAUSEA, 04/11/13) gabapentin (Verified Adverse Reaction, Mild, DIZZY, 04/11/13) levofloxacin (Verified Adverse Reaction, Mild, NAUSEA, 04/11/13) temazepam (Verified Adverse Reaction, Unknown, UNSTEADY GAIT, 08/23/16) Uncoded Allergies: BETA BLOCKERS (Adverse Reaction, Mild, DIZZY, 04/11/13) Home Meds Reported Medications Meclizine HCl (Meclizine HCl) 25 Mg Tablet, 25 MG PO Q8H PRN for VERTIGO, TAB 11/13/21 Pediatric Multivit Comb No.42 (Flintstones) 1 Each Tab.chew, 1 EACH PO BID, TAB 11/13/21 Benzocaine/Resorcinol (Ra Vagicaine Cream) 28 Gm Cream..g., 1 APPLIC TP TID PRN for VAGINITIS, EA 11/13/21 Acetaminophen (Tylenol Extra Strength) 500 Mg Tablet, 500-1000 MG PO Q8H PRN for PAIN-MILD (1-4), TAB 11/13/21 Polyethylene Glycol 3350 (Miralax) 17 Gm Powd.pack, 17 GM PO DAILY, EACH 11/13/21 Diazepam (Diazepam) 5 Mg Tablet, 2.5-5 MG PO HS, TAB 11/13/21 Sucralfate (Sucralfate) 1 Gm Tablet, 0.5 GM PO DAILY PRN for GERD, TAB TAKES OF A 1GM TAB 11/13/21 Duloxetine HCl (Duloxetine HCl) 60 Mg Capsule.dr, 60 MG PO DAILY, CAP 11/13/21 Levothyroxine Sodium (Levothyroxine Sodium) 25 Mcg Tablet, 75 MCG PO MON,THUR, TAB TAKES 3 (25MCG) TABS 11/13/21 Aspirin (Aspirin EC) 81 Mg Tablet.dr, 81 MG PO DAILY, TAB 11/13/21 Levothyroxine Sodium (Levothyroxine Sodium) 25 Mcg Tablet, 50 MCG PO VARMA,TU,WE,FR,SA, TAB TAKES 2 (25MCG) TABS 11/13/21 Cholecalciferol (Vitamin D3) (Vitamin D3) 25 Mcg Tablet, 25 MCG PO DAILY, TAB 01/28/21 Discontinued Reported Medications Levothyroxine Sodium (Levothyroxine Sodium) 50 Mcg Tablet, 50 MCG PO DAILY, TAB 01/28/21 Objective Exam R Leg: Splint intact; toes flex and extend, cap refill brisk, sensation grossly intact to light touch Vital Signs Vital Signs Date Time Temp Pulse Resp B/P (MAP) Pulse Ox O2 Delivery O2 Flow Rate FiO2 11/14/21 03:55 36.7 73 20 108/56 (73) 96 Room Air 11/13/21 23:18 37.1 97 20 112/74 (87) 93 Room Air 11/13/21 20:40 Nasal Cannula 2.00 11/13/21 20:00 36.6 93 20 110/67 (81) 97 Room Air 11/13/21 16:00 36.8 95 20 136/76 (96) 95 Nasal Cannula 2.00 11/13/21 15:25 Nasal Cannula 2 11/13/21 15:20 36.4 15 141/86 (104) 95 Nasal Cannula 2 11/13/21 15:10 OxyMask 3 11/13/21 15:10 12 137/80 (99) 93 OxyMask 2 11/13/21 15:00 12 128/76 (93) 94 OxyMask 3 11/13/21 14:50 OxyMask 6 11/13/21 14:50 12 126/73 (90) 94 OxyMask 3 11/13/21 14:40 12 106/63 (77) 93 OxyMask 6 11/13/21 14:32 OxyMask 8 11/13/21 14:32 37.5 10 96/55 (69) 91 OxyMask 8 11/13/21 08:49 36.9 79 18 161/78 (105) 90 Room Air 11/13/21 08:00 Room Air I & O 11/14/21 07:00 Intake Total 2222 ml Output Total 200 ml Balance 2022 ml Assessment and Plan Assessment R Tib/Fib Fxs s/p ORIF of Tibia Problem List R Tib/Fib Fxs s/p ORIF of Tibia Plan Work with therapy today on mobility Will switch pain medication to tylenol and tramadol Strict NWB on R LE Registered Nurse Obstetrics consult to see if she would qualify for inpatient rehab or some other form of extended care Final Diagonsis R Tib/Fib Fxs s/p ORIF of Tibia Level of the visit: Level 3 (postop global) NICKOLAS DOUGHERTY MD Nov 14, 2021 07:23
[2021-11-14 08:00] VITALS: BP 102/57
--- NOTE | 2021-11-14 08:04 | Anesthesia-General Post-Op ---
General Patient Condition Mental Status/LOC: Same as Preop Cardiovascular: Satisfactory Nausea/Vomiting: Absent Respiratory: Satisfactory Pain: Controlled Complications: Absent Post Op Complications Complications None Follow Up Care/Instructions Patient Instructions None needed. Anesthesia/Patient Condition Patient Condition Patient is doing well, no complaints, stable vital signs, no apparent adverse anesthesia problems. No complications reported per nursing. D/C home per [facility] Criteria: Yes JUNAID COSME CRNA Nov 14, 2021 08:04
[2021-11-14] MEDS: polyethylene glycoL POWDER 17 GM (MIRALAX) PACK PO SCH (08:14)
[2021-11-14] MEDS: ASPIRIN E.C. 81 MG (ECOTRIN) TAB PO SCH ×2 (08:14→18:25)
[2021-11-14] MEDS: DULoxetine 30 MG (CYMBALTA) CAP PO SCH (08:14)
[2021-11-14] MEDS: ACETAMINOPHEN 500 MG TAB (TYLENOL) PO PRN ×2 (08:48→22:30)
[2021-11-14] MEDS ORDERED: ASPIRIN E.C. 81 MG (ECOTRIN) TAB PO SCH (09:00)
[2021-11-14] MEDS ORDERED: NON-FORMULARY MEDICATION 1 EA EA (Duloxetine HCl 60 MG) PO SCH (09:00)
[2021-11-14 11:46] VITALS: BP 102/55
--- NOTE | 2021-11-14 12:25 | Physical Therapy Evaluation ---
PT Evaluation-General Medical Diagnosis Admission Date Nov 12, 2021 at 15:49 Medical Diagnosis: right tibia fx Onset Date: Nov 13, 2021 Therapy Diagnosis Therapy Diagnosis: impaired mobility Height/Weight Height (Feet): 5 Height (Inches): 9.00 Weight (Pounds): 150 Weight (Ounces): 0.0 Precautions Precautions/Isolations: Fall Prevention, Standard Precautions Weight Bear Status Right Lower Extremity: Right Non Weight Bearing Left Lower Extremity: Left Weight Bearing/Tolerated Referral Reason for Referral: Evaluation/Treatment Medical History Additional Medical History (B) LE neuropathy Current History fall 11/13/21 with resultant tibia fx; ORIF 11/13/21 Reviewed History: Yes Social History Home: Single Level Current Living Status: Spouse Entry Into Home: Stairs Without Railing PT Steps Into Home: 2 PT Steps Inside Home: 1 Unsure on how she will manage stairs. Her is mobile but she's not sure he can help lift her. Prior Prior Level of Function SCALE: Activities may be completed with or without assistive devices. 6-Rhuffessof-yqozzjk completes the activity by him/herself with no assistance from a helper. 5-Set-up or Clean-up Assistance-helper sets up or cleans up; patient completes activity. [place] assists only prior to or following the activity. 4-Supervision or Touching Assistance-helper provides verbal cues and/or touching/steadying and/or contact guard assistance as patient completes activity. Assistance may be provided throughout the activity or intermittently. 3-Partial/Moderate Assistance-helper does LESS THAN HALF the effort. [place] lifts, holds or supports trunk or limbs, but provides less than half the effort. 2-Substantial/Maximal Assistance-helper does MORE THAN HALF the effort. [place] lifts or holds trunk or limbs and provides more than half the effort. 4-Ydzygmbwe-fqndib does ALL the effort. Patient does none of the effort to complete the activity. Or, the assistance of 2 or more helpers is required for the patient to complete the activity. If activity was not attempted, code reason: 7-Patient Refused. 9-Not Applicable-not attempted and the patient did not perform the activity before the current illness, exacerbation or injury. 10-Not Attempted due to Environmental Limitations-(lack of equipment, weather restraints, etc.). 88-Not Attempted due to Medical Conditions or Safety Concerns. Bed Mobility: 6 Transfers (B,C,W/C): 6 Gait: 6 Stairs: 6 Indoor Mobility (Ambulation): Independent Stairs: Independent Prior Devices Use: None PT Evaluation-Current Subjective Pt reports she had just returned home from [place] with her . She went into the house and made pivot turn in the kitchen and then fell. She thinks the tibia fx and then she fell. She notes several weeks ago she struck her pérez on the edge of the bathtub and wonders if she partially fx the leg at that time. She does have osteoporosis. Objective Patient Orientation: Normal For Age ROM/Strength ROM Lower Extremities WFL Strength Lower Extremities 4+/5 Sensory Vision: Functional Hearing: Functional Sensation Right Lower Extremit: Impaired Sensation Left Lower Extremity: Impaired Sensation Lower Extremities (B) LE neuropathy Transfers Roll Left to Right (QC): 6 Sit to Lying (QC): 6 Lying to Sitting/Side of Bed(Q: 6 Sit to Stand (QC): 4 Chair/Usg-qb-Wikvx Xfer(QC): 4 Toilet Transfer (QC): 4 Pt needs steadying assist with transfers using a FWW. Due to neuropathy she has balance impairment even prior to this injury. Gait Does the Patient Walk?: No and Walking Goal NOT indicated Mode of Locomotion: Wheelchair Anticipated Mode of Locomotion: Wheelchair Gait Assistive Device: FWW Comments/Gait Description Pt was able to take 3 small hops forward with FWW using NWB on the (R). She was not able to hop backward. Fear is the main limitation to hopping but there is also limetations fro weakness and neuropathy. Balance Sitting Static: Good Sitting Dynamic: Good Standing Static: Fair Standing Dynamic: Poor Assessment/Needs Rehab Potential: Good Post Rehab Potential-Barriers: neuropathy and non wt bearing status Equipment Needs wheel chair and possible knee scooter PT Residential Goals Residential Goals PT Angle Shear Set Up Operator Goals Time Frame: Nov 20, 2021 Roll Left & Right (QC): 6 Sit to Lying (QC): 6 Lying-Sitting on Side/Bed(QC): 6 Sit to Stand (QC): 6 Chair/Bij-hq-Snjmt Xfer(QC): 5 Toilet Transfer (QC): 5 Does the Patient Walk: No and Walking Goal NOT indicated 1 Step (curb) (QC): 2 Does the Pt use WC or Scooter?: Yes PT Plan Problem List Problem List: Balance, Gait, Transfer Treatment/Plan Treatment Plan: Continue Plan of Care Treatment Plan: Bed Mobility, Education, Transfers Treatment Duration: Nov 20, 2021 Frequency: 11 times per week Estimated Hrs Per Day: .25 hour per day Safety Risks/Education Patient Education: Gait Training, Steps, W/C Management, Safety Issues Teaching Recipient: Patient Discharge Recommendations Plan Pt will need assist of 2 people to get up the stairs in her home or possibly one strong person to bring her up 2 steps while she is seated in the w/c. She will be at w/c level or possibly able to use a knee scooter. Therapy Discharge Recommendati: Post Acute PT Equpiment Recommendations-D/C: Front Wheeled Walker, Manual Wheelchair Target Placement home with Time/GCodes Time In: 1100 Time Out: 1125 Total Billed Treatment Time: 25 Total Billed Treatment visit, evaluation moderate complexity 25 min JOESPH BRYANT PT Nov 14, 2021 12:25
[2021-11-14 15:28] VITALS: BP 111/63
[2021-11-14 19:03] VITALS: BP 137/67
[2021-11-14] MEDS: DIAZEPAM 5 MG (VALIUM) TABLET PO SCH (20:44)
[2021-11-15] VITALS: BP 130/73
[2021-11-15 04:47] VITALS: BP 119/73
[2021-11-15] MEDS: LEVOTHYROXINE 25 MCG (LEVOTHROID) TAB PO SCH (06:48)
[2021-11-15] MEDS: MULTIVITAMINS LIQUID 15 ML UDC PO SCH (06:48)
[2021-11-15 07:41] VITALS: BP 122/58
[2021-11-15] MEDS: DULoxetine 30 MG (CYMBALTA) CAP PO SCH (08:00)
[2021-11-15] MEDS: ASPIRIN E.C. 81 MG (ECOTRIN) TAB PO SCH ×2 (08:00→17:12)
--- NOTE | 2021-11-15 09:25 | Progress Note - Ortho ---
Progress Note Subjective Date of Exam 11/15/21 Chief Complaint POD #2 ORIF R Tibia Fx HPI/Events since last exam Pain controlled, discouraged by what she was able to do with therapy, concerned about mobility at home Review of Systems - Allergies: Coded Allergies: Penicillins (Verified Allergy, Intermediate, RASH, 11/11/12) azithromycin (Verified Adverse Reaction, Mild, NAUSEA, 04/11/13) gabapentin (Verified Adverse Reaction, Mild, DIZZY, 04/11/13) levofloxacin (Verified Adverse Reaction, Mild, NAUSEA, 04/11/13) temazepam (Verified Adverse Reaction, Unknown, UNSTEADY GAIT, 08/23/16) Uncoded Allergies: BETA BLOCKERS (Adverse Reaction, Mild, DIZZY, 04/11/13) Home Meds Reported Medications Meclizine HCl (Meclizine HCl) 25 Mg Tablet, 25 MG PO Q8H PRN for VERTIGO, TAB 11/13/21 Pediatric Multivit Comb No.42 (Flintstones) 1 Each Tab.chew, 1 EACH PO BID, TAB 11/13/21 Benzocaine/Resorcinol (Ra Vagicaine Cream) 28 Gm Cream..g., 1 APPLIC TP TID PRN for VAGINITIS, EA 11/13/21 Acetaminophen (Tylenol Extra Strength) 500 Mg Tablet, 500-1000 MG PO Q8H PRN for PAIN-MILD (1-4), TAB 11/13/21 Polyethylene Glycol 3350 (Miralax) 17 Gm Powd.pack, 17 GM PO DAILY, EACH 11/13/21 Diazepam (Diazepam) 5 Mg Tablet, 2.5-5 MG PO HS, TAB 11/13/21 Sucralfate (Sucralfate) 1 Gm Tablet, 0.5 GM PO DAILY PRN for GERD, TAB TAKES OF A 1GM TAB 11/13/21 Duloxetine HCl (Duloxetine HCl) 60 Mg Capsule.dr, 60 MG PO DAILY, CAP 11/13/21 Levothyroxine Sodium (Levothyroxine Sodium) 25 Mcg Tablet, 75 MCG PO MON,THUR, TAB TAKES 3 (25MCG) TABS 11/13/21 Aspirin (Aspirin EC) 81 Mg Tablet.dr, 81 MG PO DAILY, TAB 11/13/21 Levothyroxine Sodium (Levothyroxine Sodium) 25 Mcg Tablet, 50 MCG PO VARMA,TU,WE,FR,SA, TAB TAKES 2 (25MCG) TABS 11/13/21 Cholecalciferol (Vitamin D3) (Vitamin D3) 25 Mcg Tablet, 25 MCG PO DAILY, TAB 01/28/21 Discontinued Reported Medications Levothyroxine Sodium (Levothyroxine Sodium) 50 Mcg Tablet, 50 MCG PO DAILY, TAB 01/28/21 Objective Exam Right Leg: Splint C/D/I, toes flex and extend, sensation grossly intact to light touch, calf compressible and nontender Vital Signs Vital Signs Date Time Temp Pulse Resp B/P (MAP) Pulse Ox O2 Delivery O2 Flow Rate FiO2 11/15/21 07:41 36.5 67 18 122/58 (79) 97 Room Air 11/15/21 07:30 Room Air 11/15/21 06:25 Room Air 0.00 11/15/21 04:47 36.7 77 18 119/73 (88) 94 Room Air 11/15/21 00:00 37.1 80 18 130/73 (92) 94 Room Air 11/14/21 20:50 Room Air 11/14/21 19:03 36.8 84 20 137/67 (90) 94 Room Air 11/14/21 15:28 37.1 79 18 111/63 (79) 95 Room Air 11/14/21 11:46 37.0 77 20 102/55 (71) 95 Room Air I & O 11/15/21 07:00 Intake Total 1412 ml Output Total 202 ml Balance 1210 ml Lab Results Microbiology 11/13/21 MRSA Screen - Final, Complete MRSA not isolated Assessment and Plan Assessment R Tib/Fib Fx s/p ORIF of R Tibia Problem List R Tib/Fib Fx s/p ORIF of R Tibia Plan Continue therapy efforts; continue NWB client services specialist to see for D/C planning; possible intermediate step prior to returning home Final Diagonsis R Tib/Fib Fx s/p ORIF of R Tibia Level of the visit: Level 3 (postop global) NICKOLAS DOUGHERTY MD Nov 15, 2021 09:25
[2021-11-15] MEDS: polyethylene glycoL POWDER 17 GM (MIRALAX) PACK PO SCH (10:55)
[2021-11-15 11:59] VITALS: BP 121/58
--- NOTE | 2021-11-15 14:20 | Physical Therapy Daily Note ---
PT Daily Note-Current Subjective Pt voices concern over being able to d/c to her home due to steps and other home set up. Mental Status Patient Orientation: Normal For Age Transfers SCALE: Activities may be completed with or without assistive devices. 9-Nvyvmkqshm-aeymehq completes the activity by him/herself with no assistance from a helper. 5-Set-up or Clean-up Assistance-helper sets up or cleans up; patient completes activity. [place] assists only prior to or following the activity. 4-Supervision or Touching Assistance-helper provides verbal cues and/or touching/steadying and/or contact guard assistance as patient completes activity. Assistance may be provided throughout the activity or intermittently. 3-Partial/Moderate Assistance-helper does LESS THAN HALF the effort. [place] lifts, holds or supports trunk or limbs, but provides less than half the effort. 2-Substantial/Maximal Assistance-helper does MORE THAN HALF the effort. [place] lifts or holds trunk or limbs and provides more than half the effort. 0-Qjpmbkier-tixyzh does ALL the effort. Patient does none of the effort to complete the activity. Or, the assistance of 2 or more helpers is required for the patient to complete the activity. If activity was not attempted, code reason: 7-Patient Refused. 9-Not Applicable-not attempted and the patient did not perform the activity before the current illness, exacerbation or injury. 10-Not Attempted due to Environmental Limitations-(lack of equipment, weather restraints, etc.). 88-Not Attempted due to Medical Conditions or Safety Concerns. Pt able to move to the side of the bed (I). Sit to stand (I) with verbal cues. Weight Bearing Right Lower Extremity: Right Non Weight Bearing Left Lower Extremity: Left Weight Bearing/Tolerated Gait Training Gait Assistive Device: FWW Ambulate 10ft with FWW, NWB on the (L). Pt requires verbal cues. Fear limits good foot advancement during hop. Pt has neuropathy in the (L) foot which leads to apprehension during gait. Assessment Provided education on transfers and gait. Discussed home setting and possible discharge options. Pt did show improved mobility with transfers and gait as opposed to yesterday. PT Snf Goals Snf Goals PT Snf Goals Time Frame: Nov 20, 2021 Roll Left & Right (QC): 6 Sit to Lying (QC): 6 Lying-Sitting on Side/Bed(QC): 6 Sit to Stand (QC): 6 Chair/Cqk-na-Sziex Xfer(QC): 5 Toilet Transfer (QC): 5 Does the Patient Walk: No and Walking Goal NOT indicated 1 Step (curb) (QC): 2 Does the Pt use WC or Scooter?: Yes PT Plan Treatment/Plan Treatment Plan: Continue Plan of Care Treatment Plan: Bed Mobility, Education, Transfers Treatment Duration: Nov 20, 2021 Frequency: 11 times per week Estimated Hrs Per Day: .25 hour per day Discharge Recommendations Equpiment Recommendations-D/C: 3 in 1 Commode, Front Wheeled Walker, Shower Chair, Manual Wheelchair Time/GCodes Time In: 1300 Time Out: 1330 Total Billed Treatment Time: 30 Total Billed Treatment visit, FA 15', gt 15' JOESPH BRYANT PT Nov 15, 2021 14:20
[2021-11-15] MEDS: ACETAMINOPHEN 500 MG TAB (TYLENOL) PO PRN ×2 (15:38→22:15)
[2021-11-15 15:54] VITALS: BP 132/67
[2021-11-15 19:40] VITALS: BP 115/56
[2021-11-15] MEDS: DIAZEPAM 5 MG (VALIUM) TABLET PO SCH (20:39)
[2021-11-16] VITALS: BP 111/55
[2021-11-16 03:31] VITALS: BP 135/74
[2021-11-16 08:00] VITALS: BP 139/87
[2021-11-16] MEDS: ASPIRIN E.C. 81 MG (ECOTRIN) TAB PO SCH ×2 (08:23→16:58)
[2021-11-16] MEDS: polyethylene glycoL POWDER 17 GM (MIRALAX) PACK PO SCH (08:23)
[2021-11-16] MEDS: DULoxetine 30 MG (CYMBALTA) CAP PO SCH (08:23)
[2021-11-16] MEDS: MULTIVITAMINS LIQUID 15 ML UDC PO SCH (08:34)
--- NOTE | 2021-11-16 10:06 | Physical Therapy Daily Note ---
PT Daily Note-Current Subjective pt is present for training. Family trying to decide the best discharge destination. Mental Status Patient Orientation: Normal For Age Transfers SCALE: Activities may be completed with or without assistive devices. 4-Qyufmjdrxx-vfrdbsw completes the activity by him/herself with no assistance from a helper. 5-Set-up or Clean-up Assistance-helper sets up or cleans up; patient completes activity. [place] assists only prior to or following the activity. 4-Supervision or Touching Assistance-helper provides verbal cues and/or touching/steadying and/or contact guard assistance as patient completes activity. Assistance may be provided throughout the activity or intermittently. 3-Partial/Moderate Assistance-helper does LESS THAN HALF the effort. [place] lifts, holds or supports trunk or limbs, but provides less than half the effort. 2-Substantial/Maximal Assistance-helper does MORE THAN HALF the effort. [place] lifts or holds trunk or limbs and provides more than half the effort. 7-Uyexppyua-lhtwfa does ALL the effort. Patient does none of the effort to complete the activity. Or, the assistance of 2 or more helpers is required for the patient to complete the activity. If activity was not attempted, code reason: 7-Patient Refused. 9-Not Applicable-not attempted and the patient did not perform the activity before the current illness, exacerbation or injury. 10-Not Attempted due to Environmental Limitations-(lack of equipment, weather restraints, etc.). 88-Not Attempted due to Medical Conditions or Safety Concerns. Roll Left & Right (QC): 6 Sit to Lying (QC): 6 Lying to Sitting/Side of Bed(Q: 6 Sit to Stand (QC): 6 Chair/Vhd-cz-Fikvv Xfer(QC): 4 Toilet Transfer (QC): 4 Performed bed to w/c, bed to bedside chair, bed to commode transfers all using FWW with Min Assist. was trained and demonstrated transfer with patient. Weight Bearing Right Lower Extremity: Right Non Weight Bearing Left Lower Extremity: Left Weight Bearing/Tolerated Gait Training Gait Assistive Device: FWW 5feet with FWW and NWB on the (R). Min A for balance. Assessment Pt showed improved stability with transfers. is nervous about performing transfers in the home. Family is concerned about discharge to home, primarily because of the 3 steps into the home. Options were discussed with family and social work was notified of need to consult for in home services. PT Senior Care Goals Application Manager Goals PT Application Manager Goals Time Frame: Nov 20, 2021 Roll Left & Right (QC): 6 Sit to Lying (QC): 6 Lying-Sitting on Side/Bed(QC): 6 Sit to Stand (QC): 6 Chair/Fqu-rm-Ranaj Xfer(QC): 5 Toilet Transfer (QC): 5 Does the Patient Walk: No and Walking Goal NOT indicated 1 Step (curb) (QC): 2 Does the Pt use WC or Scooter?: Yes PT Plan Problem List Problem List: Safety, Transfer Treatment/Plan Treatment Plan: Continue Plan of Care Treatment Plan: Bed Mobility, Education, Transfers Treatment Duration: Nov 20, 2021 Frequency: 11 times per week Estimated Hrs Per Day: .25 hour per day Safety Risks/Education Patient Education: Gait Training, Transfer Techniques, Steps Teaching Recipient: Patient, Significant Other Teaching Methods: Demonstration, Discussion Response to Teaching: Verbalize Understanding, Return Demonstration Discharge Recommendations Therapy Discharge Recommendati: Post Acute PT Equpiment Recommendations-D/C: 3 in 1 Commode, Hospital Bed, Wheelchair Ramp, Manual Wheelchair Time/GCodes Time In: 0900 Time Out: 09 Total Billed Treatment Time: 35 Total Billed Treatment visit, FA 35min JOESPH BRYANT PT Nov 16, 2021 10:06
[2021-11-16 12:00] VITALS: BP 126/70
--- NOTE | 2021-11-16 13:23 | Physical Therapy Daily Note ---
PT Daily Note-Current Subjective Patient presents laying in bed and agrees to doing some bed exercises. Patient reports that she has practiced transferring to the comode 3 times today and feels more confident about it now. Mental Status Patient Orientation: Person, Place, Time, Situation Transfers SCALE: Activities may be completed with or without assistive devices. 0-Tpxjogwmnd-smmfaim completes the activity by him/herself with no assistance from a helper. 5-Set-up or Clean-up Assistance-helper sets up or cleans up; patient completes activity. [place] assists only prior to or following the activity. 4-Supervision or Touching Assistance-helper provides verbal cues and/or touching/steadying and/or contact guard assistance as patient completes activity. Assistance may be provided throughout the activity or intermittently. 3-Partial/Moderate Assistance-helper does LESS THAN HALF the effort. [place] lif ts, holds or supports trunk or limbs, but provides less than half the effort. 2-Substantial/Maximal Assistance-helper does MORE THAN HALF the effort. [place] lifts or holds trunk or limbs and provides more than half the effort. 0-Erccxxtcc-jybtmr does ALL the effort. Patient does none of the effort to complete the activity. Or, the assistance of 2 or more helpers is required for the patient to complete the activity. If activity was not attempted, code reason: 7-Patient Refused. 9-Not Applicable-not attempted and the patient did not perform the activity before the current illness, exacerbation or injury. 10-Not Attempted due to Environmental Limitations-(lack of equipment, weather restraints, etc.). 88-Not Attempted due to Medical Conditions or Safety Concerns. Weight Bearing Right Lower Extremity: Right Non Weight Bearing Left Lower Extremity: Left Weight Bearing/Tolerated Exercises Supine Ex: Quad Set, Glut sets, Heel Slides, Straight leg raise Supine Reps: 15 Assessment Patient performed supine exercises listed above with minimal difficulty. Patient performed all supine exercises bilaterally. Patient was educated on HEP and educated on importance of performing exercises while at home. Patient has some reservations about returning to have but believes that she and her will figure everything out once they get home. PT Fci Goals Fci Goals PT [place] Supervisor Goals Time Frame: Nov 20, 2021 Roll Left & Right (QC): 6 Sit to Lying (QC): 6 Lying-Sitting on Side/Bed(QC): 6 Sit to Stand (QC): 6 Chair/Ukg-ob-Rykji Xfer(QC): 5 Toilet Transfer (QC): 5 Does the Patient Walk: No and Walking Goal NOT indicated 1 Step (curb) (QC): 2 Does the Pt use WC or Scooter?: Yes PT Plan Treatment/Plan Treatment Plan: Continue Plan of Care Treatment Plan: Bed Mobility, Education, Transfers Treatment Duration: Nov 20, 2021 Frequency: 11 times per week Estimated Hrs Per Day: .25 hour per day Time/GCodes Time In: 1300 Time Out: 1315 Total Billed Treatment Time: 15 Total Billed Treatment 1 Visit Ex 15 min HONEY ROBLEDO PT Nov 16, 2021 13:22
[2021-11-16 16:00] VITALS: BP 150/88
[2021-11-16 20:00] VITALS: BP 139/79
[2021-11-16] MEDS: DIAZEPAM 5 MG (VALIUM) TABLET PO SCH (22:14)
[2021-11-16] MEDS: ACETAMINOPHEN 500 MG TAB (TYLENOL) PO PRN (22:14)
[2021-11-17] VITALS: BP 127/71
[2021-11-17 04:41] VITALS: BP 132/78
[2021-11-17] MEDS: LEVOTHYROXINE 25 MCG (LEVOTHROID) TAB PO SCH (06:27)
[2021-11-17] MEDS: MULTIVITAMINS LIQUID 15 ML UDC PO SCH (06:27)
[2021-11-17 08:00] VITALS: BP 138/77
[2021-11-17] MEDS ORDERED: ASPI-1238 PO (08:30)
[2021-11-17] MEDS ORDERED: TRM50T PO (08:30)
--- NOTE | 2021-11-17 08:36 | D/C HH Face to Face Order ---
D/C Face to Face Orders Instructions for Patient Via [facility], Patient Instructions/FollowUp: Strict NWB to right leg; walker/wheelchair for transfers and mobility; keep splint C/D/I; F/U 12/01/21 in office Physician to follow Patient: Karsten Reyes MD Discharge Diet for Home: Regular Diet Patient Data-Allergies,Ht & Wt Patient Allergies: Coded Allergies: Penicillins (Verified Allergy, Intermediate, RASH, 11/11/12) azithromycin (Verified Adverse Reaction, Mild, NAUSEA, 04/11/13) gabapentin (Verified Adverse Reaction, Mild, DIZZY, 04/11/13) levofloxacin (Verified Adverse Reaction, Mild, NAUSEA, 04/11/13) temazepam (Verified Adverse Reaction, Unknown, UNSTEADY GAIT, 08/23/16) Uncoded Allergies: BETA BLOCKERS (Adverse Reaction, Mild, DIZZY, 04/11/13) Height (Feet): 5 Height (Inches): 9.00 Weight (Pounds): 150 Weight (Ounces): 0.0 Home Health Need/Face to Face Date of Face to Face: Nov 17, 2021 Clinical Findings: Muscle weakness, Non or partial weight bearing, Unsteady gait I have seen Pt [id number]: Yes Discharged To: Home Diagnosis/Conditions: Right Distal Tibia and Fibula Fractures s/p ORIF of Right Distal Tibia Fracture Patient is Homebound due to: Pema fall risk due to instabilty, Non-weight bearing Homebound Status Due to the above stated illness, injury or surgical procedure (medical condition or diagnosis) and associated clinical findings, the patient is homebound because of his/her inability to leave home except with aid of a supportive device and/or person AND leaving the home requires a considerable and taxing effort or is medically contraindicated. Pt req the following assistanc: Wheelchair Home Health Nursing Orders Home Health Services Order: Nursing Services, Physical Therapy-Evaluate & Treat, Other Home Health Infusion Therapy Line Start Date: Nov 12, 2021 Therapy Orders Therapy Orders: Physical Therapy Therapy Specific Orders: Teach enviro modifications/safety, Gait training, Increase strength/endurance Certify Stmt I certify that this patient is under my care and that I, a nurse practitioner or a physician; a contact center assistant working with me, had a face to face encounter that - meets the physician face to face encounter requirements with this patient as dated. KARSTEN REYES MD Nov 17, 2021 08:36
--- NOTE | 2021-11-17 08:43 | Discharge Summary ---
Discharge Summary Hospital Course Hospital Course Date of Admission: Nov 14, 2021 at 16:02 Admission Diagnosis : Family Physician/Provider: Leyla Atwood DO Date of Discharge: 11/17/21 Discharge Diagnosis: Right Distal Tibia and Fibula Fractures Hospital Course: On 11/12/21, presented to emergency room after a fall. ER evaluation found right distal tibia and fibula fractures. Admitted observation to mt. On 11/13/21, was taken to the operating room and underwent ORIF of right distal tibia fracture with closed treatment of comminuted fibula shaft fracture. Taken to regular floor after surgery. Began therapy on POD #1 and had signific ant difficulty. Pain was controlled on oral medication. Postop splint remained intact. Converted to inpatient. Made some progress with therapy. On 11/16/21, manager social consulted with patient and spouse about options. After this conversation, arrangements were made for home with home health. On 11/17/21, equipment had been obtained and she was improved in transferring. She was ready for discharge home with home health. Labs and Pending Lab Test: Microbiology 11/13/21 MRSA Screen - Final, Complete MRSA not isolated Home Meds Active Tramadol HCl 50 Mg Tablet 50 Mg PO Q6HR PRN 5 Days Aspirin EC (Aspirin) 81 Mg Tablet. 81 Mg PO BID WITH MEALS 30 Days Reported Meclizine HCl 25 Mg Tablet 25 Mg PO Q8H PRN Flintstones (Pediatric Multivit Comb No.42) 1 Each Tab.chew 1 Each PO BID Ra Vagicaine Cream (Benzocaine/Resorcinol) 28 Gm Cream..g. 1 Applic TP TID PRN Tylenol Extra Strength (Acetaminophen) 500 Mg Tablet 500-1,000 Mg PO Q8H PRN Miralax (Polyethylene Glycol 3350) 17 Gm Powd.pack 17 Gm PO DAILY Diazepam 5 Mg Tablet 2.5-5 Mg PO HS Sucralfate 1 Gm Tablet 0.5 Gm PO DAILY PRN TAKES OF A 1GM TAB Duloxetine HCl 60 Mg Capsule. 60 Mg PO DAILY Levothyroxine Sodium 25 Mcg Tablet 75 Mcg PO TUE, TAKES 3 (25MCG) TABS Aspirin EC (Aspirin) 81 Mg Tablet.dr 81 Mg PO DAILY Levothyroxine Sodium 25 Mcg Tablet 50 Mcg PO VARMA,TU,WE,FR,SA TAKES 2 (25MCG) TABS Vitamin D3 (Cholecalciferol (Vitamin D3)) 25 Mcg Tablet 25 Mcg PO DAILY Assessment/Pt Instructions See Face to Face Discharge Instructions Discharge Diet: Regular Diet Discharge Physical Examination Vital Signs Vital Signs Date Time Temp Pulse Resp B/P (MAP) Pulse Ox O2 Delivery O2 Flow Rate FiO2 11/17/21 04:41 36.0 85 18 132/78 (96) 96 Room Air 11/15/21 06:25 0.00 Extremity: Other (Right Leg with posterior splint intact, some swelling of toes, flexes and extends toes, sensation grossly intact to light touch.) Allergies: Coded Allergies: Penicillins (Verified Allergy, Intermediate, RASH, 11/11/12) azithromycin (Verified Adverse Reaction, Mild, NAUSEA, 04/11/13) gabapentin (Verified Adverse Reaction, Mild, DIZZY, 04/11/13) levofloxacin (Verified Adverse Reaction, Mild, NAUSEA, 04/11/13) temazepam (Verified Adverse Reaction, Unknown, UNSTEADY GAIT, 08/23/16) Uncoded Allergies: BETA BLOCKERS (Adverse Reaction, Mild, DIZZY, 04/11/13) Discharge Summary Date of Admission Nov 14, 2021 at 16:02 Date of Discharge Discharge Date: Nov 17, 2021 NICKOLAS DOUHGERTY MD Nov 17, 2021 08:41
[2021-11-17] MEDS ORDERED: wheelchair XX (08:45)
--- NOTE | 2021-11-17 09:01 | Physical Therapy Daily Note ---
PT Daily Note-Current Subjective Patient is sitting on EOB when PT arrives. Patient reports that she just completed a transfer from the comode back to the bed after a BM. Patient reports that she did not get all the way on the comode and had a mess on the floor. Patient reports that her legs were sore yesterday after completing bed exercises. Patient reports that they believe they are planning on going home today as long as they can get all of the equipment that they need. Mental Status Patient Orientation: Person, Place, Time, Situation Transfers SCALE: Activities may be completed with or without assistive devices. 4-Nffpwdskdb-qcixkye completes the activity by him/herself with no assistance from a helper. 5-Set-up or Clean-up Assistance-helper sets up or cleans up; patient completes activity. [place] assists only prior to or following the activity. 4-Supervision or Touching Assistance-helper provides verbal cues and/or touching/steadying and/or contact guard assistance as patient completes activity. Assistance may be provided throughout the activity or intermittently. 3-Partial/Moderate Assistance-helper does LESS THAN HALF the effort. [place] lift s, holds or supports trunk or limbs, but provides less than half the effort. 2-Substantial/Maximal Assistance-helper does MORE THAN HALF the effort. [place] lifts or holds trunk or limbs and provides more than half the effort. 9-Vvnhhkygs-ufvnhh does ALL the effort. Patient does none of the effort to complete the activity. Or, the assistance of 2 or more helpers is required for the patient to complete the activity. If activity was not attempted, code reason: 7-Patient Refused. 9-Not Applicable-not attempted and the patient did not perform the activity before the current illness, exacerbation or injury. 10-Not Attempted due to Environmental Limitations-(lack of equipment, weather restraints, etc.). 88-Not Attempted due to Medical Conditions or Safety Concerns. Sit to Lying (QC): 5 Sit to Stand (QC): 4 Weight Bearing Right Lower Extremity: Right Non Weight Bearing Left Lower Extremity: Left Weight Bearing/Tolerated Exercises Supine Ex: Quad Set, Glut sets, Straight leg raise Supine Reps: 10 Seated Therapy Exercises: Long arc quads, Hip flexion Seated Reps: 10 Assessment Patient completed all exercises bilaterally for 10 reps on each leg. Patient was fatigued after performing the exercises. Patient reports that she gets distracted too easily while doing the exercises and has difficulty counting how many reps she is doing. Patient and patients spouse are educated on HEP and instructed to perform the exercises 2-3 times per day. PT Chcf Goals Chcf Goals PT Chcf Goals Time Frame: Nov 20, 2021 Roll Left & Right (QC): 6 Sit to Lying (QC): 6 Lying-Sitting on Side/Bed(QC): 6 Sit to Stand (QC): 6 Chair/Zho-el-Vjcza Xfer(QC): 5 Toilet Transfer (QC): 5 Does the Patient Walk: No and Walking Goal NOT indicated 1 Step (curb) (QC): 2 Does the Pt use WC or Scooter?: Yes PT Plan Treatment/Plan Treatment Plan: Continue Plan of Care Treatment Plan: Bed Mobility, Education, Transfers Treatment Duration: Nov 20, 2021 Frequency: 11 times per week Estimated Hrs Per Day: .25 hour per day Time/GCodes Time In: 803 Time Out: 823 Total Billed Treatment Time: 20 Total Billed Treatment 1 Visit Ex 20 min HONEY ROBLEDO PT Nov 17, 2021 09:01
[2021-11-17] MEDS: polyethylene glycoL POWDER 17 GM (MIRALAX) PACK PO SCH ×2 (10:00→10:12)
[2021-11-17] MEDS: DULoxetine 30 MG (CYMBALTA) CAP PO SCH (10:04)
[2021-11-17] MEDS: ASPIRIN E.C. 81 MG (ECOTRIN) TAB PO SCH (10:04)
[2021-11-17 12:00] VITALS: BP 138/77
[2021-11-17 15:55] VITALS: BP 138/77
== END 2021-11-17 15:55 | disposition home health service (06) | DRG 494 ==
LOC: EDUNIT# 14:09 → ER 14:10 → 4TH 15:49 → OBSVTOIN 11-14 16:02
PROVIDERS: ADMIT Orthopaedic Surgery; ATTEND Orthopaedic Surgery
PROC: 0QSG04Z Reposition Right Tibia with Internal Fixation Device, Open Approach (ICD-10-PCS; principal; 2021-11-14)
PROC: 0QSJ34Z Reposition Right Fibula with Internal Fixation Device, Percutaneous Approach (ICD-10-PCS; 2021-11-14)
DX: S82.831A Other fracture of upper and lower end of right fibula, initial encounter for closed fracture (principal); S82.301A Unspecified fracture of lower end of right tibia, initial encounter for closed fracture; I10 Essential (primary) hypertension; G62.9 Polyneuropathy, unspecified; K21.9 Gastro-esophageal reflux disease without esophagitis; Z20.822 Contact with and (suspected) exposure to COVID-19; M19.90 Unspecified osteoarthritis, unspecified site; E03.9 Hypothyroidism, unspecified; F41.9 Anxiety disorder, unspecified; Z79.82 Long term (current) use of aspirin; Z79.899 Other long term (current) drug therapy
CPT/HCPCS: 36415; 71045; 73590; 73610; 76000; 80048; 85025; 87081; 87636; 93005; G0378

== ENCOUNTER → 2021-12-01 | Outpatient (CLI) | payer MEDICARE ==
[~2021-12-01] MED LIST changes: +ACET-2267 PO; +ASPI-1238 PO; +BENZ28CR TP; +DIAZ5TAB49 PO; +DULO60CA59 PO; +MECL-149 PO; +PEDI1TAB36 PO; +POLY17PO6 PO; +SUCR1TAB PO; +TRM50T PO; +wheelchair XX
== END ==
LOC: ORTHO 12:50
PROVIDERS: ATTEND Orthopaedic Surgery
DX: Z47.89 Encounter for other orthopedic aftercare (principal)

== ENCOUNTER → 2021-12-22 | Outpatient (CLI) | payer MEDICARE ==
--- NOTE | 2021-12-22 13:18 | Diagnostic Imaging Report ---
INDICATION: Follow-up right ankle surgery. TIME OF EXAM: 12:39 p.m. COMPARISON: Correlation is made with radiographs from 11/12/2021. FINDINGS: A medial plate and numerous screws have been placed transfixing the obliquely oriented distal tibial fracture. Non-fixated fracture of the distal fibula does show normal anatomic alignment. Alignment of the ankle is normal. Ankle mortise is well maintained. Talar dome is smooth. IMPRESSION: ORIF to distal tibial fracture showing near-anatomic alignment. Dictated by: Dictated on workstation # [id number]
== END ==
LOC: ORTHO 12:25
PROVIDERS: ATTEND Orthopaedic Surgery
DX: Z09 Encounter for follow-up examination after completed treatment for conditions other than malignant neoplasm (principal)
CPT/HCPCS: 73610

== ENCOUNTER → 2022-01-19 | Outpatient (CLI) | payer MEDICARE ==
--- NOTE | 2022-01-19 12:54 | Diagnostic Imaging Report ---
INDICATION: Right ankle fracture. Postop followup. COMPARISON: 12/22/2021 FINDINGS: 3 radiographic views of the right ankle were obtained. Again identified are expected postsurgical changes of prior ORIF of the distal tibia. Orthopedic side plate and screws are seen traversing the medial margins of the distal tibia. Hardware appears intact and well seated. Nonacute fractures of the distal tibia and fibula are also noted. There has been interval progression of partially bridging callus formation consistent with partial interval healing. No new acute fracture dislocation is seen. Tibiotalar joint space is appropriate. There is persistent moderate soft tissue swelling. IMPRESSION: 1. Redemonstration partially healed fractures of the distal tibia and fibula with postoperative changes of the distal tibia as above. Dictated by: Dictated on workstation # [id number]
== END ==
LOC: ORTHO 12:28
PROVIDERS: ATTEND Orthopaedic Surgery
DX: Z47.89 Encounter for other orthopedic aftercare (principal); Z98.890 Other specified postprocedural states; Z87.81 Personal history of (healed) traumatic fracture
CPT/HCPCS: 73610

== ENCOUNTER → 2022-02-02 | Outpatient (CLI) | payer MEDICARE ==
--- NOTE | 2022-02-02 14:27 | Diagnostic Imaging Report ---
INDICATION: Right ankle pain. TIME OF EXAM: 12:50 PM. COMPARISON: Correlation is made to the prior radiograph from 01/19/2022. FINDINGS: Medial plate and numerous screws transfix the fracture of the distal tibia. Fracture lines remain visible although there does appear to be some healing and slight blurring. Obliquely oriented distal fibular fracture appears stable. Fracture lines remain clearly visible. Alignment is anatomic. Ankle mortise is well-maintained. There is some generalized soft tissue swelling about the ankle. IMPRESSION: Stable appearance of the right ankle when compared with the prior examination from 01/17/2022. Fracture lines remain visible. Overall alignment is anatomic. Dictated by: Dictated on workstation # [id number]
== END ==
LOC: ORTHO 12:42
PROVIDERS: ATTEND Orthopaedic Surgery
DX: Z47.89 Encounter for other orthopedic aftercare (principal); M25.561 Pain in right knee; Z98.890 Other specified postprocedural states
CPT/HCPCS: 73610

== ENCOUNTER → 2022-02-25 | Outpatient (CLI) | payer MEDICARE ==
--- NOTE | 2022-02-25 14:54 | Diagnostic Imaging Report ---
Indication: Postop right ankle. Time of Exam: 12:37 PM Correlation is made with prior radiograph from 02/02/2022. There is a medial plate and numerous screws transfixing the obliquely oriented fracture of the distal tibia. Fracture line remains clearly visible. Alignment is anatomic. Hardware appears intact without fracture or loosening. Fracture distal fibula is again noted and remains partially visible. Alignment is anatomic. There is some generalized soft tissue swelling about the lateral ankle. Impression: Postoperative changes right ankle. Tibial and fibular fracture lines remain partly visible but overall alignment is anatomic. Dictated by: Dictated on workstation # [id number]
== END ==
LOC: ORTHO 12:25
PROVIDERS: ATTEND Orthopaedic Surgery
DX: S82.301D Unspecified fracture of lower end of right tibia, subsequent encounter for closed fracture with routine healing (principal); S82.831D Other fracture of upper and lower end of right fibula, subsequent encounter for closed fracture with routine healing; X58.XXXD Exposure to other specified factors, subsequent encounter
CPT/HCPCS: 73610; G0463; 99213

== ENCOUNTER 2022-03-07 04:01 | Observation (INO) | payer MEDICARE ==
[~2022-03-07] VITALS: Ht 175.3 cm; Wt 70.7 kg
[2022-03-07 04:03] VITALS: BP 136/98
[2022-03-07 04:33] LABS: BASOPHILS # (AUTO) 0.1 10^3/uL (0.0-0.1); BASOPHILS % (AUTO) 1 % (0-10); EOSINOPHILS # (AUTO) 0.3 10^3/uL (0.0-0.3); EOSINOPHILS % (AUTO) 3 % (0-10); HEMATOCRIT 44 % (35-52); LYMPHOCYTES # (AUTO) 2.6 10^3/uL (1.0-4.0); LYMPHOCYTES % (AUTO) 27 % (12-44); MEAN CORPUSCULAR HEMOGLOBIN 32 pg (25-34); MEAN CORPUSCULAR HGB CONC 34 g/dL (32-36); MEAN CORPUSCULAR VOLUME 94 fL (80-99); MEAN PLATELET VOLUME 10.1 fL (9.0-12.2); MONOCYTES # (AUTO) 0.6 10^3/uL (0.0-1.0); MONOCYTES % (AUTO) 7 % (0-12); NEUTROPHILS # (AUTO) 6.1 10^3/uL (1.8-7.8); NEUTROPHILS % (AUTO) 62 % (42-75); PLATELET COUNT 320 10^3/uL (130-400); WHITE BLOOD COUNT 9.7 10^3/uL (4.3-11.0)
[2022-03-07 04:43] LABS: ALBUMIN 3.9 GM/DL (3.2-4.5); CHLORIDE 104 MMOL/L (98-107); POTASSIUM 3.8 MMOL/L (3.6-5.0); SODIUM 140 MMOL/L (135-145)
[2022-03-07 04:44] LABS: CALCIUM 10.2 MG/DL (8.5-10.1)
[2022-03-07 04:45] LABS: GLUCOSE 147 MG/DL (70-105)
[2022-03-07 04:46] LABS: TOTAL PROTEIN 7.5 GM/DL (6.4-8.2)
[2022-03-07 04:47] LABS: BILIRUBIN,TOTAL 0.4 MG/DL (0.1-1.0); CARBON DIOXIDE 21 MMOL/L (21-32)
[2022-03-07 04:49] LABS: ALKALINE PHOSPHATASE 61 U/L (40-136); GFR ESTIMATED 51
[2022-03-07 04:50] LABS: BUN/CREATININE RATIO 20
[2022-03-07 04:52] LABS: ALANINE AMINOTRANSFERASE 13 U/L (0-55)
[2022-03-07 05:01] LABS: FIBRIN DEGRADATION PRODUCTS 0.06 UG/ML (0.00-0.49); INR 0.9 (0.8-1.4); PROTHROMBIN TIME PATIENT 12.7 SEC (12.2-14.7)
[2022-03-07] MEDS ORDERED: CATHETER FLUSH 10 ML SYR IV PRN (05:15)
[2022-03-07] MEDS ORDERED: NS 100 ML (IVPB) BAG IV ONE (05:15)
[2022-03-07] MEDS ORDERED: IOHEXOL 350 MG/ML 100 ML (OMNIPAQUE 350) VIAL IV ONE (05:15)
[2022-03-07 05:22] LABS: FREE T4 (FREE THYROXINE) 0.89 NG/DL (0.70-1.48)
[2022-03-07 05:23] LABS: BILIRUBIN,URINE NEGATIVE (NEGATIVE); CLARITY,URINE CLEAR; COLOR,URINE YELLOW; GLUCOSE, URINE (UA) NEGATIVE (NEGATIVE); KETONES,URINE NEGATIVE (NEGATIVE); LEUKOCYTE ESTERASE ,URINE 1+ (NEGATIVE); NITRITE,URINE NEGATIVE (NEGATIVE); PROTEIN,URINE NEGATIVE (NEGATIVE)
[2022-03-07 05:36] LABS: BACTERIA,URINE NEGATIVE /HPF; SQUAMOUS EPITHELIAL CELL,UR 0-2 /HPF
--- NOTE | 2022-03-07 05:37 | Diagnostic Imaging Report ---
PROCEDURE: CT head wo r/o stroke. TECHNIQUE: Multiple contiguous axial images were obtained through the brain without the use of intravenous contrast. Auto Exposure Controls were utilized during the CT exam to meet ALARA standards for radiation dose reduction. INDICATION: Altered mental status and weakness. FINDINGS: There is prominence of the ventricles and sulci. There is no hydrocephalus or cerebral edema. There is no midline shift or mass-effect. There is no intracranial mass, hemorrhage, or extra-axial fluid collection. There is some diffuse decreased attenuation of the periventricular white matter which is nonspecific. The visualized paranasal sinuses and mastoid air cells are clear. There are no regional areas of decreased attenuation appreciated to suggest an acute CVA. IMPRESSION: 1. No acute intracranial process. 2. Age-appropriate atrophy. 3. Decreased attenuation of the periventricular white matter which is nonspecific, however, likely reflects senescent change and/or chronic small vessel ischemic disease. Agree with preliminary interpretation Dictated by: Dictated on workstation # [id number]
--- NOTE | 2022-03-07 06:23 | Diagnostic Imaging Report ---
INDICATION: Stroke. Comparison is made with prior examination of 11/12/2021. FINDINGS: The heart size, mediastinal configuration, and pulmonary vascularity are within normal limits. There is no pleural effusion, pneumothorax, or pneumonia. The osseous structures are unremarkable. IMPRESSION: No acute cardiopulmonary abnormality. Dictated by: Dictated on workstation # [id number]
--- NOTE | 2022-03-07 06:56 | Diagnostic Imaging Report ---
EXAMINATION: CT angiography head and neck with and without contrast. TECHNIQUE: After intravenous administration of contrast, thin section axial CT angiography of the head and neck was performed to screen for LVO, and multiple reformats including MIP reconstructions. Postcontrast CT of the head was also obtained. All CT scans use one or more of the following dose optimizing techniques: automated exposure control, MA and/or KvP adjustment based on a patient size and exam type, or iterative reconstruction. CT angiogram was post-processed using RAPID LVO detection to include quantitative measurements of cerebral blood flow and automated results notification to the stroke and/or neurointerventional team. HISTORY: Aphasia, Left hand numb/weak COMPARISON: CT head 03/07/2022 FINDINGS: HEAD: Anterior circulation: The visualized portions of the internal carotid arteries are unremarkable without significant plaque or stenosis. The anterior and middle cerebral arteries show no stenosis or intraluminal filling defects. No anterior circulation aneurysms are present. Posterior circulation: The visualized distal vertebral arteries are patent to the vertebrobasilar junction. The basilar artery and both posterior cerebral arteries are widely patent without stenosis. No posterior circulation aneurysms are present. Please see same day CT head for discussion of nonvascular findings. No abnormal enhancement. NECK: Arch: Conventional branching of the aortic arch. The visualized subclavian arteries are patent without stenosis. Right: The right common carotid, internal carotid, and external carotid arteries are widely patent without stenosis or dissection. Mild plaque is present at the carotid bulb and bifurcation. The estimated internal carotid stenosis by NASCET criteria is 0%. The right vertebral artery is patent to the level of the vertebrobasilar junction. Left: The left common carotid, internal carotid, and external carotid arteries are widely patent without stenosis or dissection. Mild plaque is present at the carotid bulb and bifurcation. The estimated internal carotid stenosis by NASCET criteria is 0%. The left vertebral artery is dominant and patent to the level of the vertebrobasilar junction. Other: The visualized thyroid gland is unremarkable. The cervical soft tissues are unremarkable. The visualized upper lungs and mediastinum are normal. The cervical osseous structures are normal. IMPRESSION: 1. Minimal atherosclerosis. Otherwise normal vasculature in the head and neck without large vessel occlusion. 2. Agree with preliminary interpretation. Dictated by: Dictated on workstation # [id number]
[2022-03-07] MEDS ORDERED: CLOPIDOGREL 75 MG (PLAVIX) TABLET PO ONE (07:00)
[2022-03-07] MEDS ORDERED: ASPIRIN 325 MG (5 GR) TABLET PO ONE (07:00)
--- NOTE | 2022-03-07 07:07 | ED Neurological Problem ---
General Chief Complaint: Neuro-Stroke Like Symptoms Stated Complaint: L HAND NUMB,WEAK Nursing Triage Note: PT ARRIVAL TO ER VIA EMS AFTER CALLING BECAUSE SHE WOKE UP WITH WEAKNESS IN LEFT HAND. PT ALSO HAS SOME APHASIA, BUT STATES THAT THIS HAS BEEN GOING ON FOR A MONTH. PT DENIES HEADACHE, OR OTHER ISSUES. PT IS ALERT AND ORIENTED. HAND WAS FINE WHEN WENT TO BED. Source: patient, EMS Exam Limitations: no limitations History of Present Illness Date Seen by Provider: March 07, 2022 Time Seen by Provider: 04:02 Initial Comments This is a 76-year-old woman presents to the emergency room via EMS with complaint of waking with left hand numbness and weakness. She is also exhibiting expressive aphasia which has been an intermittent problem for the last 1 to 2 months. Last known well time was at 2230 when she went to bed. Left hand symptoms were resolved by the time EMS arrived to the home, but the aphasia persisted. Allergies and Home Medications Allergies Coded Allergies: Penicillins (Verified Allergy, Intermediate, RASH, 11/11/12) azithromycin (Verified Adverse Reaction, Mild, NAUSEA, 04/11/13) gabapentin (Verified Adverse Reaction, Mild, DIZZY, 04/11/13) levofloxacin (Verified Adverse Reaction, Mild, NAUSEA, 04/11/13) temazepam (Verified Adverse Reaction, Unknown, UNSTEADY GAIT, 08/23/16) Uncoded Allergies: BETA BLOCKERS (Adverse Reaction, Mild, DIZZY, 04/11/13) Patient Home Medication List Home Medication List Reviewed: Yes Acetaminophen (Tylenol Extra Strength) 500 Mg Tablet, 500-1,000 MG PO Q8H PRN for PAIN-MILD (1-4), (Reported) Entered as Reported by: MARQUISE HASSAN on 11/13/21 1022 Aspirin (Aspirin EC) 81 Mg Tablet., 81 MG PO DAILY, (Reported) Entered as Reported by: MARQUISE HASSAN on 11/13/21 1022 Aspirin (Aspirin EC) 81 Mg Tablet., 81 MG PO BID WITH MEALS Prescribed by: NICKOLAS DOUGHERTY MD on 11/17/21 0830 Benzocaine/Resorcinol (Ra Vagicaine Cream) 28 Gm Cream..g., 1 APPLIC TP TID PRN for VAGINITIS, (Reported) Entered as Reported by: MARQUISE HASSAN on 11/13/21 1022 Cholecalciferol (Vitamin D3) (Vitamin D3) 25 Mcg Tablet, 25 MCG PO DAILY, (Reported) Entered as Reported by: KJ CINTRON on 01/28/21 1353 Diazepam (Diazepam) 5 Mg Tablet, 2.5-5 MG PO HS, (Reported) Entered as Reported by: MARQUISE HASSAN on 11/13/21 1022 Duloxetine HCl (Duloxetine HCl) 60 Mg Capsule.dr, 60 MG PO DAILY, (Reported) Entered as Reported by: MARQUISE HASSAN on 11/13/21 1022 Levothyroxine Sodium (Levothyroxine Sodium) 25 Mcg Tablet, 50 MCG PO VARAM,TU,WE,F R,SA, (Reported) Entered as Reported by: MARQUISE HASSAN on 11/13/21 1022 Levothyroxine Sodium (Levothyroxine Sodium) 25 Mcg Tablet, 75 MCG PO ELTON CONCEPCION, (Reported) Entered as Reported by: MARQUISE HASSAN on 11/13/21 1022 Meclizine HCl (Meclizine HCl) 25 Mg Tablet, 25 MG PO Q8H PRN for VERTIGO, (Reported) Entered as Reported by: MARQUISE HASSAN on 11/13/21 1022 Pediatric Multivit Comb No.42 (Flintstones) 1 Each Tab.chew, 1 EACH PO BID, (Reported) Entered as Reported by: MARQUISE HASSAN on 11/13/21 1022 Polyethylene Glycol 3350 (Miralax) 17 Gm Powd.pack, 17 GM PO DAILY, (Reported) Entered as Reported by: MARQUISE HASSAN on 11/13/21 1022 Sucralfate (Sucralfate) 1 Gm Tablet, 0.5 GM PO DAILY PRN for GERD, (Reported) Entered as Reported by: MARQUISE HASSAN on 11/13/21 1022 Tramadol HCl (Tramadol HCl) 50 Mg Tablet, 50 MG PO Q6HR PRN for PAIN-MODERATE (5-7) Prescribed by: NICKOLAS DOUGHERTY MD on 11/17/21830 [wheelchair] , UNIT XX DAILY, (DME) Prescribed by: NICKOLAS DOUGHERTY MD on 11/17/2135 Review of Systems Review of Systems Constitutional: no symptoms reported Eyes: No Symptoms Reported Ears, Nose, Mouth, Throat: no symptoms reported Respiratory: no symptoms reported Cardiovascular: no symptoms reported Gastrointestinal: no symptoms reported Genitourinary: no symptoms reported : No Musculoskeletal: no symptoms reported Skin: no symptoms reported Psychiatric/Neurological: See HPI Endocrine: No Symptoms Reported Hematologic/Lymphatic: No Symptoms Reported Past Ruunfge-Hpwrgq-Ivfbqm Hx Patient Social History Tobacco Use?: No Use of E-Cig and/or Vaping dev: No Substance use?: No Alcohol Use?: No Pt feels they are or have been: No Immunizations Up To Date Tetanus Booster (TDap): Unknown Influenza Vaccine Up-to-Date: No; Not Current First/Initial COVID19 Vaccinat: OCT Second COVID19 Vaccination Deepak: Dec COVID19 Vaccination Date: OCT Seasonal Allergies Seasonal Allergies: No Past Medical History Surgeries: Yes (EYE x3, TEETH, EGD/COLONOSCOPIES, BUNIONECTOMY,) Appendectomy, Eye Surgery, Hysterectomy, Oophorectomy, Orthopedic Respiratory: No Currently Using CPAP: No Currently Using BIPAP: No Cardiac: Yes Hypertension, Palpitations Neurological: Yes Neuropathy, Vertigo Reproductive Disorders: No APPARATUS CLEANER History: Hysterectomy, Menopausal Genitourinary: Yes UTI-Chronic Gastrointestinal: Yes Gastroesophageal Reflux, Polyps, Esophagitis, Ulcer Musculoskeletal: Yes Arthritis Endocrine: Yes Hypothyroidsim HEENT: Yes Cataract Cancer: No Psychosocial: Yes Anxiety Integumentary: No Blood Disorders: No Family Medical History No Pertinent Family Hx Physical Exam Vital Signs Vital Signs - First Documented 03/07/22 03/07/22 04:03 04:20 Temp 36.4 Pulse 106 Resp 18 B/P (MAP) 136/98 Pulse Ox 97 O2 Delivery Room Air Capillary Refill : Less Than 3 Seconds Height, Weight, BMI Height: 5'9.00" Weight: 150lbs. 0.0oz. 68.304601pp; 20.00 BMI Method:Stated General Appearance: WD/WN, no apparent distress, thin HEENT: PERRL/EOMI, normal ENT inspection Neck: normal inspection, other (No JVD) Respiratory: lungs clear, normal breath sounds, no respiratory distress Cardiovascular: regular rate, rhythm, no edema, no murmur Gastrointestinal: non tender, soft Extremities: normal inspection, no pedal edema Neurologic/Psychiatric: no motor/sensory deficits, alert, normal mood/affect, oriented x 3, other (Expressive aphasia with some difficulty with word finding and completion of thoughts) Crainal Nerves: normal hearing, PERRL, abnormal speech Coordination/Gait: normal finger to nose Motor/Sensory: no motor deficit, no sensory deficit Skin: normal color, warm/dry Stroke NIH Stroke Scale Assessment Level of Consciousness: 0=Alert (0), Level of Consciousness-Questions: 0=Answers both month/age (0), LOC Commands: 0=Performs both tasks (0), Visual [place]: 0=No visual loss (0), Facial Movement (Facial Paresis): 0=Normal symmetrical mnt (0), Motor Function-Arms Right: 0=No drift (0), Motor Function-Arms Left: 0=No drift (0), Motor Function-Legs Right: 0=No drift (0), Motor Function-Legs Left: 0=No drift (0), Limb Ataxia: 0=Absent (0), Sensory: 0=Normal:no loss (0), Best Language: 1=Mild to moderat aphasia (1), Dysarthria: 0=Normal (0), Extinction & Inattention: 0=No abnormality (0), Total: 1 Progress/Results/Core Measures Results/Orders Lab Results Laboratory Tests Test 03/07/22 04:15 03/07/22 04:20 03/07/22 04:22 Range/Units Urine Color YELLOW Urine Clarity CLEAR Urine pH 6.0 5-9 Urine Specific [place] 1.015 L 1.016-1.022 Urine Protein NEGATIVE NEGATIVE Urine Glucose (UA) NEGATIVE NEGATIVE Urine Ketones NEGATIVE NEGATIVE Urine Nitrite NEGATIVE NEGATIVE Urine Bilirubin NEGATIVE NEGATIVE Urine Urobilinogen 0.2 < = 1.0 MG/DL Urine Leukocyte Esterase 1+ H NEGATIVE Urine RBC (Auto) NEGATIVE NEGATIVE Urine RBC NONE /HPF Urine WBC 2-5 /HPF Urine Squamous Epithelial Cells 0-2 /HPF Urine Crystals NONE /LPF Urine Bacteria NEGATIVE /HPF Urine Casts NONE /LPF Urine Mucus NEGATIVE /LPF Urine Culture Indicated NO White Blood Count 9.7 4.3-11.0 10^3/uL Red Blood Count 4.74 3.80-5.11 10^6/uL Hemoglobin 15.0 11.5-16.0 g/dL Hematocrit 44 35-52 % Mean Corpuscular Volume 94 80-99 fL Mean Corpuscular Hemoglobin 32 25-34 pg Mean Corpuscular Hemoglobin Concent 34 32-36 g/dL Red Cell Distribution Width 13.1 10.0-14.5 % Platelet Count 320 130-400 10^3/uL Mean Platelet Volume 10.1 9.0-12.2 fL Immature Granulocyte % (Auto) 1 % Neutrophils (%) (Auto) 62 42-75 % Lymphocytes (%) (Auto) 27 12-44 % Monocytes (%) (Auto) 7 0-12 % Eosinophils (%) (Auto) 3 0-10 % Basophils (%) (Auto) 1 0-10 % Neutrophils # (Auto) 6.1 1.8-7.8 10^3/uL Lymphocytes # (Auto) 2.6 1.0-4.0 10^3/uL Monocytes # (Auto) 0.6 0.0-1.0 10^3/uL Eosinophils # (Auto) 0.3 0.0-0.3 10^3/uL Basophils # (Auto) 0.1 0.0-0.1 10^3/uL Immature Granulocyte # (Auto) 0.1 0.0-0.1 10^3/uL Prothrombin Time 12.7 12.2-14.7 SEC INR Comment 0.9 0.8-1.4 Activated Partial Thromboplast Time 31 24-35 SEC D-Dimer 0.06 0.00-0.49 UG/ML Sodium Level 140 135-145 MMOL/L Potassium Level 3.8 3.6-5.0 MMOL/L Chloride Level 104 98-107 MMOL/L Carbon Dioxide Level 21 21-32 MMOL/L Anion Gap 15 H 5-14 MMOL/L Blood Urea Nitrogen 22 H 7-18 MG/DL Creatinine 1.10 0.60-1.30 MG/DL Estimat Glomerular Filtration Rate 51 BUN/Creatinine Ratio 20 Glucose Level 147 H 70-105 MG/DL Calcium Level 10.2 H 8.5-10.1 MG/DL Corrected Calcium 10.3 H 8.5-10.1 MG/DL Total Bilirubin 0.4 0.1-1.0 MG/DL Aspartate Amino Transf (AST/SGOT) 25 5-34 U/L Alanine Aminotransferase (ALT/SGPT) 13 0-55 U/L Alkaline Phosphatase 61 40-136 U/L Troponin I < 0.028 <0.028 NG/ML Total Protein 7.5 6.4-8.2 GM/DL Albumin 3.9 3.2-4.5 GM/DL Thyroid Stimulating Hormone (TSH) 33.40 H 0.35-4.94 UIU/ML Free Thyroxine 0.89 0.70-1.48 NG/DL Glucometer 163 H 70-110 MG/DL My Orders Orders - ALFREDO WOLF MD Cbc With Automated Diff (03/07/22 04:15) Protime With Inr (03/07/22 04:15) Partial Thromboplastin Time (03/07/22 04:15) Comprehensive Metabolic Panel (03/07/22 04:15) Fibrin Degradation Products (03/07/22 04:15) Troponin I [place] (03/07/22 04:15) Ua Culture If Indicated (03/07/22 04:15) Chest 1 View, Ap/Pa Only (03/07/22 04:15) Ekg Tracing (03/07/22 04:15) Nothing By Mouth (03/07/22 Breakfast) Accucheck Stat ONCE (03/07/22 04:15) Ed Iv/Invasive Line Start (03/07/22 04:15) Ed Iv/Invasive Line Start (03/07/22 04:15) Vital Signs Stroke Patient Q15M (03/07/22 04:15) Ct Head Wo-R/O Stroke (03/07/22 04:15) O2 (03/07/22 04:15) Intake & Output 06,14,22 (03/07/22 04:15) Monitor-Rhythm Ecg Trace Only (03/07/22 04:15) Dysphagia Screening Tool Q10MX1 (03/07/22 04:15) Lipid Panel (03/08/22 06:00) Ct Angio Head/Neck (03/07/22 04:39) Free T4 (Free Thyroxine) (03/07/22 04:20) Thyroid Stimulating Hormone (03/07/22 04:20) Iohexol Injection (Omnipaque 350 Mg/Ml 1 (03/07/22 05:15) Sodium Chloride Flush (Catheter Flush Sy (03/07/22 05:15) Ns (Ivpb) (Sodium Chloride 0.9% Ivpb Bag (03/07/22 05:15) Aspirin Tablet (Aspirin Tablet) (03/07/22 07:00) Clopidogrel Tablet (Plavix Tablet) (03/07/22 07:00) Medications Given in ED Current Medications Medications Dose Ordered Sig/Tyler Route Start Time Stop Time Status Last Admin Dose Admin Iohexol 100 ml ONCE ONCE IV 03/07/22 05:15 03/07/22 05:16 DC 03/07/22 05:22 75 ML Sodium Chloride 10 ml NEEDED PRN IV 03/07/22 05:15 03/07/22 05:22 10 ML Sodium Chloride 100 ml ONCE ONCE IV 03/07/22 05:15 03/07/22 05:16 DC 03/07/22 05:22 80 ML Vital Signs/I&O 03/07/22 03/07/22 04:03 04:20 Temp 36.4 Pulse 106 106 Resp 18 18 B/P (MAP) 136/98 136/98 (111) Pulse Ox 97 97 O2 Delivery Room Air Blood Pressure Mean: 111 FSBG Bedside Testing Finger Stick Blood Glucose: 163 Blood Glucose Action Taken: nothing Progress Progress Note : Progress Note Patient was seen and examined upon arrival. Because of the persistent problems with expressive aphasia, stroke activation was paged. CT was first viewed by me at 0435. CT was remarkable for possible right temporal lobe acute infarct versus artifact and was followed by CT angiogram. CT angiogram demonstrated a similar finding. This was discussed with Dr. Aviles, stroke neurologist at [facility], at 0554. Patient was not a tPA candidate due to minor symptoms and g reater than 4.5 hours from last known well time. She recommended dual antiplatelet therapy and admission with completion of stroke work-up including MRI. Aspirin and Plavix are being administered in the ER. I discussed CODE STATUS with the patient and she would like to have a full code order. Initial ECG Impression Date: March 07, 2022 Initial ECG Impression Time: 04:17 Initial ECG Rate: 113 Initial ECG Rhythm: S.Tach Comment Sinus tachycardia with no ST elevation or depression. No abnormal intervals or axis deviation. Diagnostic Imaging Diagonstic Imaging: CT Plain Films/CT/US/NM/MRI: head Comments CT head viewed by me discussed with the radiologist and stat rad report reviewed. Potential right temporal lobe infarct versus artifact. CT later interpreted by local radiologist as below: NAME: JIMMY KNAPP [facility] REC#: [id number] PT STATUS: REG ER : 1945 PHYSICIAN: ALFREDO WOLF MD ADMIT DATE: 03/07/22/ER Draft Date of Exam:03/07/22 CT HEAD WO-R/O STROKE PROCEDURE: CT head wo r/o stroke. TECHNIQUE: Multiple contiguous axial images were obtained through the brain without the use of intravenous contrast. Auto Exposure Controls were utilized during the CT exam to meet ALARA standards for radiation dose reduction. INDICATION: Altered mental status and weakness. FINDINGS: There is prominence of the ventricles and sulci. There is no hydrocephalus or cerebral edema. There is no midline shift or mass-effect. There is no intracranial mass, hemorrhage, or extra-axial fluid collection. There is some diffuse decreased attenuation of the periventricular white matter which is nonspecific. The visualized paranasal sinuses and mastoid air cells are clear. There are no regional areas of decreased attenuation appreciated to suggest an acute CVA. IMPRESSION: 1. No acute intracranial process. 2. Age-appropriate atrophy. 3. Decreased attenuation of the periventricular white matter which is nonspecific, however, likely reflects senescent change and/or chronic small vessel ischemic disease. Agree with preliminary interpretation Dictated on workstation # [id number] Dict: 03/07/22 0533 Trans: 03/07/22 0537 GOYO [id number] Interpreted by: ANDRE VILLATORO MD Diagonstic Imaging: CT Plain Films/CT/US/NM/MRI: other (Angiogram head and neck) Comments CT angiogram head and neck discussed with radiologist and stat rad report reviewed. Again there is suspicion for acute infarct in the right temporal lobe. Vascular evaluation is unremarkable. CT angiogram was later read by in-house radiologist as below: NAME: JIMMY KNAPP [facility] REC#: [id number] PT STATUS: REG ER : 1945 PHYSICIAN: ALFREDO WOLF MD ADMIT DATE: 03/07/22/ER Draft Date of Exam:03/07/22 CT ANGIO HEAD/NECK EXAMINATION: CT angiography head and neck with and without contrast. TECHNIQUE: After intravenous administration of contrast, thin section axial CT angiography of the head and neck was performed to screen for LVO, and multiple reformats including MIP reconstructions. Postcontrast CT of the head was also obtained. All CT scans use one or more of the following dose optimizing techniques: automated exposure control, MA and/or KvP adjustment based on a patient size and exam type, or iterative reconstruction. CT angiogram was post-processed using RAPID LVO detection to include quantitative measurements of cerebral blood flow and automated results notification to the stroke and/or neurointerventional team. HISTORY: Aphasia, Left hand numb/weak COMPARISON: CT head 03/07/2022 FINDINGS: HEAD: Anterior circulation: The visualized portions of the internal carotid arteries are unremarkable without significant plaque or stenosis. The anterior and middle cerebral arteries show no stenosis or intraluminal filling defects. No anterior circulation aneurysms are present. Posterior circulation: The visualized distal vertebral arteries are patent to the vertebrobasilar junction. The basilar artery and both posterior cerebral arteries are widely patent without stenosis. No posterior circulation aneurysms are present. Please see same day CT head for discussion of nonvascular findings. No abnormal enhancement. NECK: Arch: Conventional branching of the aortic arch. The visualized subclavian arteries are patent without stenosis. Right: The right common carotid, internal carotid, and external carotid arteries are widely patent without stenosis or dissection. Mild plaque is present at the carotid bulb and bifurcation. The estimated internal carotid stenosis by NASCET criteria is 0%. The right vertebral artery is patent to the level of the vertebrobasilar junction. Left: The left common carotid, internal carotid, and external carotid arteries are widely patent without stenosis or dissection. Mild plaque is present at the carotid bulb and bifurcation. The estimated internal carotid stenosis by NASCET criteria is 0%. The left vertebral artery is dominant and patent to the level of the vertebrobasilar junction. Other: The visualized thyroid gland is unremarkable. The cervical soft tissues are unremarkable. The visualized upper lungs and mediastinum are normal. The cervical osseous structures are normal. IMPRESSION: 1. Minimal atherosclerosis. Otherwise normal vasculature in the head and neck without large vessel occlusion. 2. Agree with preliminary interpretation. Dictated on workstation # [id number] Dict: 03/07/22 0649 Trans: 03/07/22 0656 CV [id number] Interpreted by: LAUREN LIND DO Diagonstic Imaging: Xray Plain Films/CT/US/NM/MRI: chest Comments NAME: JIMMY KNAPP [facility] REC#: [id number] PT STATUS: REG ER : 1945 PHYSICIAN: ALFREDO WOLF MD ADMIT DATE: 03/07/22/ER Draft Date of Exam:03/07/22 CHEST 1 VIEW, AP/PA ONLY INDICATION: Stroke. Comparison is made with prior examination of 11/12/2021. FINDINGS: The heart size, mediastinal configuration, and pulmonary vascularity are within normal limits. There is no pleural effusion, pneumothorax, or pneumonia. The osseous structures are unremarkable. IMPRESSION: No acute cardiopulmonary abnormality. Dictated on workstation # [id number] Dict: 03/07/22 0517 Trans: 03/07/22 0622 [facility] [id number] Interpreted by: ANDRE VILLATORO MD Departure Communication (Admissions) Time/Spoke to Admitting Phy: 06:50 Dr. Garcia Impression Primary Impression: Acute CVA (cerebrovascular accident) Additional Impressions: Right hand weakness Expressive aphasia Disposition: ADMITTED INPATIENT Condition: Improved Admissions Decision to Admit Reason: Admit from ER (General) Decision to Admit/Date: March 07, 2022 Time/Decision to Admit Time: 06:50 Departure-Patient Inst. Referrals: CHRISTEL BATISTA DO (PCP/Family) Primary Care Physician Copy Copies To 1: CHRISTEL BATISTA JOSHUA T MD March 07, 2022 07:07
--- NOTE | 2022-03-07 07:30 | Tele-ICU Progress Note ---
Subjective Date Seen by a Provider: March 07, 2022 Time Seen by a Provider: 06:50 Subjective/Events-last exam This virtual visit was conducted using real time audio/video. Thank you for asking us to see this patient for R CVA with dysphasia and resolved L hand weakness. PMH: hypothyroid, depression. SH: smoking history :N FH: Non-contributory ROS as in HPI PE: VSS. O2 sat 97% on RA HEENT: No obvious masses, adenopathy or JVD. Chest: clear to auscultation. CV: RRR S1 S2 No murmur or added sounds. Abd: Non-tender. Bowel sounds Y. : Unremarkable. Omer N. SIGNALS INTELLIGENCE ANALYSIS MANAGER/psychiatric: Grossly intact. No obvious focal findings. Extremities: No edema. Capillary refill < 3 seconds. Skin: unremarkable. Results: Elevated BUN 22, BG 163, TSH 33.4. CXR: clear. CTH: possible R temporal infarct. Available chart/ vitals / labs / images reviewed. Video assessment done using teleICU camera, rest of exam as per RN. A/P: Critical Care: critically ill patient. Cont. ASA, plavix. Discussed with RN. Asked RN to reach out to eICU if any questions or concerns later. Time spent with patient/coordination of care with other health professionals (mins): 20 Sepsis Event Evaluation Height, Weight, BMI Height: 5'9.00" Weight: 150lbs. 0.0oz. 68.568729tp; 20.00 BMI Method:Stated Exam Exam Patient acknowledged, consented, and participated in this virtual visit which was conducted using real time audio/video Vital Signs Date Time Temp Pulse Resp B/P (MAP) Pulse Ox O2 Delivery O2 Flow Rate FiO2 03/07/22 04:20 36.4 106 18 136/98 (111) 97 Room Air 03/07/22 04:03 106 18 136/98 97 Height & Weight Height: 5'9.00" Weight: 150lbs. 0.0oz. 68.912974du; 20.00 BMI Method:Stated General Appearance: Thin Capillary Refill: Less Than 3 Seconds Peripheral Pulses: 1+ Dorsalis Pedis (R), 1+ Left Dors-Pedis (L) Gastrointestinal: non tender, soft Results Lab Laboratory Tests 03/07/22 04:20 Assessment/Plan Assessment/Plan See free text Critical Care: Critically Ill Patient TAD PEDROZA MD March 07, 2022 07:30
[2022-03-07 08:00] VITALS: BP 122/81
[2022-03-07] MEDS ORDERED: ONDANSETRON 4 MG/2 ML (SDV) Z0FRAN IV PRN (09:45)
[2022-03-07] MEDS ORDERED: PATIENT MAY USE OWN MEDS, ALL PO SCH (09:45)
--- NOTE | 2022-03-07 09:55 | History & Physical-Hospitalist ---
History of Present Illness HPI/Chief Complaint Patient is a 76-year-old female with a past medical history of hypothyroidism who presented to the emergency department due to left hand weakness. She states she woke up in the middle of the night and felt like her hand was throbbing and aching. She attempted to get up and walk but was quite dizzy and also thought that her speech was jumbled. She decided to seek evaluation in the emergency department and was activated as a code stroke. A CT of her head was done concerning for acute infarct in the right temporal lobe. The emergency room discussed this with stroke neurology who recommended MRI but no intervention. She was admitted for further management. This morning she reports feeling much better but did have some bright red blood when she had a bowel movement which she associates with hemorrhoids. She showed me the tissues from when she wiped which showed some bright red blood on a few tissues. Source: patient Date Seen 03/07/22 Time Seen by a Provider: 09:51 Attending Physician Gerardo Garcia MD PCP Leyla Atwood DO Referring Physician Date of Admission March 07, 2022 at 07:00 Home Medications & Allergies Home Medications Reviewed patient Home Medication Reconciliation performed by pharmacy medication reconciliations digital cartographic technician and/or nursing. Patients Allergies have been reviewed. Allergies Allergies Coded Allergies Penicillins (Verified Allergy, Intermediate, RASH, 11/11/12) azithromycin (Verified Adverse Reaction, Mild, NAUSEA, 04/11/13) gabapentin (Verified Adverse Reaction, Mild, DIZZY, 04/11/13) levofloxacin (Verified Adverse Reaction, Mild, NAUSEA, 04/11/13) temazepam (Verified Adverse Reaction, Unknown, UNSTEADY GAIT, 08/23/16) Uncoded Allergies BETA BLOCKERS ( Adverse Reaction, Mild, DIZZY, 04/11/13) Past Axfinzz-Xztxub-Mzubpt Hx Patient Social History Employed/Student: retired Tobacco Use?: No Smoking Status: Never a Smoker Use of E-Cig and/or Vaping dev: No Substance use?: No Alcohol Use?: No Pt feels they are or have been: No Immunizations Up To Date Date of Influenza Vaccine: Jul 31, 2012 First/Initial COVID19 Vaccinat: 11/27/2020 Second COVID19 Vaccination Deepak: 12/25/20 Tetanus Booster (TDap): Unknown Date of Pneumonia Vaccine: Aug 31, 1998 Seasonal Allergies Seasonal Allergies: No Current Status status: No status: No Advance Directives: Yes Advance Directive Location: pt said it should be on file Communicates: Verbally Primary Language: Kyrgyz Preferred Spoken Language: Kyrgyz Implanted or Applied Medical D: None Past Medical History Surgeries: Appendectomy, Eye Surgery, Hysterectomy, Oophorectomy, Orthopedic Currently Using CPAP: No Currently Using BIPAP: No Hypertension, Palpitations Neuropathy, Vertigo 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: Hysterectomy, Menopausal UTI-Chronic Gastroesophageal Reflux, Polyps, Esophagitis, Ulcer Arthritis Hypothyroidsim Cataract Anxiety Blood Disorders: No Family Medical History Reviewed Nursing Family Hx No Pertinent Family Hx Review of Systems Constitutional: No chills, No fever EENTM: no symptoms reported Respiratory: No cough, No short of breath Gastrointestinal: No abdominal pain, No constipation, No diarrhea, No nausea, No vomiting Genitourinary: no symptoms reported Musculoskeletal: no symptoms reported Skin: no symptoms reported Psychiatric/Neurological: See HPI Physical Exam Physical Exam Vital Signs Vital Signs - First Documented 03/07/22 03/07/22 04:03 04:20 Temp 36.4 Pulse 106 Resp 18 B/P (MAP) 136/98 Pulse Ox 97 O2 Delivery Room Air Capillary Refill : Less Than 3 Seconds Height, Weight, BMI Height: 5'9.00" Weight: 150lbs. 0.0oz. 68.352231lb; 23.03 BMI Method:Stated General Appearance: No Apparent Distress, WD/WN, Thin HEENT: PERRL/EOMI, Moist Mucous Membranes; No Scleral Icterus (L), No Scleral Icterus (R) Neck: Normal Inspection, Supple Respiratory: Lungs Clear, No Accessory Muscle Use, No Respiratory Distress Cardiovascular: Regular Rate, Rhythm, No JVD, No Murmur Gastrointestinal: Normal Bowel Sounds, Non Tender, Soft Extremity: No Calf Tenderness, No Pedal Edema Neurologic/Psychiatric: Alert, Oriented x3 Skin: Normal Color, Warm/Dry Results Results/Procedures Labs Laboratory Tests 03/07/22 04:20 Patient resulted labs reviewed. Imaging: Reviewed Imaging Report [facility] [place] NAME: JIMMY KNAPP [facility] REC#: [id number] PT STATUS: ADM Mahamed : 1945 PHYSICIAN: ALFREDO WOLF MD ADMIT DATE: 03/07/22/ICU Signed Date of Exam:03/07/22 CT HEAD WO-R/O STROKE PROCEDURE: CT head wo r/o stroke. TECHNIQUE: Multiple contiguous axial images were obtained through the brain without the use of intravenous contrast. Auto Exposure Controls were utilized during the CT exam to meet ALARA standards for radiation dose reduction. INDICATION: Altered mental status and weakness. FINDINGS: There is prominence of the ventricles and sulci. There is no hydrocephalus or cerebral edema. There is no midline shift or mass-effect. There is no intracranial mass, hemorrhage, or extra-axial fluid collection. There is some diffuse decreased attenuation of the periventricular white matter which is nonspecific. The visualized paranasal sinuses and mastoid air cells are clear. There are no regional areas of decreased attenuation appreciated to suggest an acute CVA. IMPRESSION: 1. No acute intracranial process. 2. Age-appropriate atrophy. 3. Decreased attenuation of the periventricular white matter which is nonspecific, however, likely reflects senescent change and/or chronic small vessel ischemic disease. Agree with preliminary interpretation Dictated by: Dictated on workstation # [id number] Dict: 03/07/22 0533 Trans: 03/07/22 0744 GOYO [id number] Interpreted by: ANDRE VILLATORO MD Electronically signed by: ANDRE VILLATORO MD 03/07/22 0744 [facility] [place], [place] NAME: JIMMY KNAPP [facility] REC#: [id number] PT STATUS: ADM Mahamed : 1945 PHYSICIAN: ALFREDO WOLF MD ADMIT DATE: 03/07/22/ICU Signed Date of Exam:03/07/22 CT ANGIO HEAD/NECK EXAMINATION: CT angiography head and neck with and without contrast. TECHNIQUE: After intravenous administration of contrast, thin section axial CT angiography of the head and neck was performed to screen for LVO, and multiple reformats including MIP reconstructions. Postcontrast CT of the head was also obtained. All CT scans use one or more of the following dose optimizing techniques: automated exposure control, MA and/or KvP adjustment based on a patient size and exam type, or iterative reconstruction. CT angiogram was post-processed using RAPID LVO detection to include quantitative measurements of cerebral blood flow and automated results notification to the stroke and/or neurointerventional team. HISTORY: Aphasia, Left hand numb/weak COMPARISON: CT head 03/07/2022 FINDINGS: HEAD: Anterior circulation: The visualized portions of the internal carotid arteries are unremarkable without significant plaque or stenosis. The anterior and middle cerebral arteries show no stenosis or intraluminal filling defects. No anterior circulation aneurysms are present. Posterior circulation: The visualized distal vertebral arteries are patent to the vertebrobasilar junction. The basilar artery and both posterior cerebral arteries are widely patent without stenosis. No posterior circulation aneurysms are present. Please see same day CT head for discussion of nonvascular findings. No abnormal enhancement. NECK: Arch: Conventional branching of the aortic arch. The visualized subclavian arteries are patent without stenosis. Right: The right common carotid, internal carotid, and external carotid arteries are widely patent without stenosis or dissection. Mild plaque is present at the carotid bulb and bifurcation. The estimated internal carotid stenosis by NASCET criteria is 0%. The right vertebral artery is patent to the level of the vertebrobasilar junction. Left: The left common carotid, internal carotid, and external carotid arteries are widely patent without stenosis or dissection. Mild plaque is present at the carotid bulb and bifurcation. The estimated internal carotid stenosis by NASCET criteria is 0%. The left vertebral artery is dominant and patent to the level of the vertebrobasilar junction. Other: The visualized thyroid gland is unremarkable. The cervical soft tissues are unremarkable. The visualized upper lungs and mediastinum are normal. The cervical osseous structures are normal. IMPRESSION: 1. Minimal atherosclerosis. Otherwise normal vasculature in the head and neck without large vessel occlusion. 2. Agree with preliminary interpretation. Dictated by: Dictated on workstation # [id number] Dict: 03/07/22 0649 Trans: 03/07/22806 [id number] [id number] Interpreted by: LAUREN LIND DO Electronically signed by: LAUREN LIND DO 03/07/22 0807 Assessment/Plan Admission Diagnosis Acute CVA Admission Status: Inpatient Order (span 2 midnights) Reason for Inpatient Admission: see below Assessment and Plan Acute Right sided CVA CT confirmed likely acute infarct Will get MRI in AM PT/OT Dysphagia screen ASA/Plavix x3 weeks per stroke neurology recs Monitor on tele- history o fheart palpitations though no diagnosis of a fib- consider loop recorder pending further work up Echo in AM Hypothyroidism Continue home synthroid TSH 33 but normal T4 Unsure of compliance DVT ppx: Lovenox Diagnosis/Problems Diagnosis/Problems (1) Acute CVA (cerebrovascular accident) Status: Acute (2) Right hand weakness Status: Acute (3) Expressive aphasia Status: Acute (4) Hypothyroidism Status: Acute GERARDO GARCIA MD March 07, 2022 09:55
[2022-03-07] MEDS ORDERED: LEVOTHYROXINE 25 MCG (LEVOTHROID) TAB PO SCH (11:45)
[2022-03-07 12:00] VITALS: BP 127/76
[2022-03-07] MEDS: SUCRALFATE 1 GM (CARAFATE) TAB PO SCH ×3 (12:15→20:22)
[2022-03-07 16:00] VITALS: BP 122/78
[2022-03-07 19:38] VITALS: BP 129/75
[2022-03-07 22:50] VITALS: BP 129/72
[2022-03-08 00:26] VITALS: BP 154/95
[2022-03-08 03:57] VITALS: BP 149/91
[2022-03-08 05:01] LABS: CHOLESTEROL 203 MG/DL (< 200); HDL CHOLESTEROL 47 MG/DL (40-60); TRIGLYCERIDES 85 MG/DL (<150); VLDL CHOLESTEROL 17 MG/DL (5-40)
[2022-03-08] MEDS ORDERED: LEVOTHYROXINE 25 MCG (LEVOTHROID) TAB PO SCH (06:30)
[2022-03-08] MEDS ORDERED: LEVOTHYROXINE 50 MCG (LEVOTHROID) TAB PO SCH (06:30)
[2022-03-08 07:00] VITALS: BP 145/94
[2022-03-08 07:35] VITALS: BP 145/94
[2022-03-08] MEDS: SUCRALFATE 1 GM (CARAFATE) TAB PO SCH (08:50)
[2022-03-08] MEDS ORDERED: PANTOPRAZOLE 40 MG (PROTONIX) TAB PO SCH (09:00)
[2022-03-08] MEDS ORDERED: CLOPIDOGREL 75 MG (PLAVIX) TABLET PO SCH (09:00)
[2022-03-08] MEDS ORDERED: ASPIRIN 325 MG (5 GR) TABLET PO SCH (09:00)
[2022-03-08] MEDS ORDERED: DULOXETINE 60 MG CAPSULE PO SCH (09:00)
[2022-03-08] MEDS ORDERED: DULoxetine 30 MG (CYMBALTA) CAP PO SCH (09:00)
--- NOTE | 2022-03-08 09:04 | Speech Therapy Progress Note ---
Therapy Progress Note Speech pathology received a consult for speech pathology services secondary to a suspected stroke. At this time, the patient is tolerating a regular diet with thin liquids. The patient does report "air coming up" every now and then, therefore, the clinician discussed the possibility of reduced esophageal motility with aging and the abil ity to provide an appropriate referral for additional investigation if the episodes increase in frequency or become bothersome. The patient denied concerns with her speech, language, or cognition or the need for skilled speech pathology services. The patient and her (at bedside) provided multiple concerns regarding "communication" at our facility. The clinician provided supportive listening and reported she would contact nursing to provide appropriate response to their complaints. The patient's RN, Anastasia, was provided the information from the clinician. The clinician offered to contact additional patient services if ap propriate. The patient and the patient's were pleased with the support provided by the clinician. The clinician left the room once the patient's physician, Dr. Atwood, arrived. ELIJAH WEBER March 08, 2022 09:04
[2022-03-08] MEDS ORDERED: CALC300T4 PO ×2 (09:41→12:41)
[2022-03-08] MEDS ORDERED: CALC500T7 PO (09:41)
[2022-03-08 11:25] VITALS: BP 136/85
--- NOTE | 2022-03-08 11:33 | Diagnostic Imaging Report ---
PROCEDURE: MR imaging of the brain without contrast. TECHNIQUE: Multiplanar, multisequence MR imaging of the brain was performed without contrast. INDICATION: Left hand weakness. TIAs. COMPARISON: CT head and CTA head and neck 03/07/2022. FINDINGS: Moderate generalized parenchymal volume loss. Advanced confluent T2 hyperintensities in the supratentorial and pontine white matter. No restricted water diffusion. No hemosiderin deposition. Normal morphology including the major midline structures, sella, posterior fossa and cerebellar pontine angle. Normal intracranial flow voids. No hydrocephalus or extra-axial fluid collections. Postoperative changes in the right globe. The paranasal sinuses and mastoids are unremarkable. Normal bone marrow signal. IMPRESSION: 1. No acute intracranial MRI findings. No evidence of acute infarction or hemorrhage. 2. Moderate generalized parenchymal volume loss and advanced nonspecific T2 hyperintensities in the supratentorial and pontine white matter compatible with chronic small vessel ischemic change. Dictated by: Dictated on workstation # [id number]
[2022-03-08] MEDS ORDERED: ASPI-808 PO (12:41)
--- NOTE | 2022-03-08 14:31 | Occ Therapy Progress Note ---
Therapy Progress Note OT orders received and chart reviewed. OT evaluation attempted this AM, but pt was at MRI. OT evaluation attempted again in afternoon, but pt reports she is discharging home and has everything packed. Pt has no concerns with self care tasks, and reports she no longer has UE weakness. No skilled OT services indicated at this time. 1, visit [facility] OT March 08, 2022 14:31
--- NOTE | 2022-03-08 17:15 | Discharge Summary ---
Diagnosis/Chief Complaint Date of Admission March 07, 2022 at 07:00 Date of Discharge March 08, 2022 at 13:35 Discharge Date: March 08, 2022 Discharge Diagnosis 1. Transient Ischemic Attack 2. Chronic Microvascular Ischemia 3. Labile Hypertension 4. Anxiety 5. Hypercholesterolemia 6. Neuropathy of feet 7. S/P ORIF of right TIB/FIB fracture 8. Hypothyroidism with elevated TSH Discharge Summary Hospital Course Was the Problem List Reviewed?: Yes Hospital Course This is a 76 year old female who was brought to the emergency room after waking up with left arm numbness and weakness. She also reported aphasia but stated that had been happening for at least 2mos. Her left arm weakness and numbness was resolved by the time EMS arrived. Initial CT of the brain was concerning for a possible right temporal lobe acute infarct vs artifact so a CTA of the head and neck were performed. [facility]' neurology was consulted and they recommended plavix and aspirin and admission for further evaluation and MRI of the brain and ECHO. The patient was admitted to the ICU and had no return of symptoms. Her blood pressure stayed at 140s/90s or less. Her TSH was also elevated but the patients thyroid medications were not adjusted due to tachycardia and elevated blood pressure with increased synthroid doses. We will recheck this as an outpatient. She refused statin medications due to a history of intolerance in the past. She has also not tolerated numerous blood pressure medications in the past due to hypotension or side effects. Official radiology readings on her CT of her brain and CT angiogram of her head and neck showed chronic microvascular changes but no evidence of acute CVA. A MRI of the brain was accomplished which also confirmed chronic microvascular changes but no acute findings. She did undergo an echocardiogram prior to discharge which showed preserved EF with grade 1 diastolic dysfunction and aortic sclerosis with no stenosis. She will be discharged home on aspirin 325mg for 5 days then will resume aspirin 81mg daily. I will follow up with her in my office in 1 week. Labs Laboratory Tests 03/07/22 04:15: Urine Specific Heaters 1.015L, Urine Leukocyte Esterase 1+H 03/07/22 04:20: Anion Gap 15H, Blood Urea Nitrogen 22H, Glucose Level 147H, Calcium Level 10.2H, Corrected Calcium 10.3H, Thyroid Stimulating Hormone (TSH) 33.40H 03/07/22 04:22: Glucometer 163H 03/08/22 04:30: Cholesterol Level 203H, LDL Cholesterol Direct 152H Procedures None. Discharge Physical Examination Allergies: Coded Allergies: Penicillins (Verified Allergy, Intermediate, RASH, 11/11/12) azithromycin (Verified Adverse Reaction, Mild, NAUSEA, 04/11/13) gabapentin (Verified Adverse Reaction, Mild, DIZZY, 04/11/13) levofloxacin (Verified Adverse Reaction, Mild, NAUSEA, 04/11/13) temazepam (Verified Adverse Reaction, Unknown, UNSTEADY GAIT, 08/23/16) Uncoded Allergies: BETA BLOCKERS (Adverse Reaction, Mild, DIZZY, 04/11/13) Vitals & I&Os Vital Signs Date Time Temp Pulse Resp B/P (MAP) Pulse Ox O2 Delivery O2 Flow Rate FiO2 03/08/22 12:00 95 Room Air 03/08/22 11:25 36.4 87 16 136/85 (102) General Appearance: Alert, Oriented X3, Cooperative, No Acute Distress Respiratory: Clear to Auscultation Cardiovascular: Regular Rate Abdominal: Normal Bowel Sounds, Soft, No Tenderness Extremities: No Clubbing, No Cyanosis, No Edema Neuro: Normal Gait, Normal Speech, Strength at 5/5 X4 Ext, Sensation Intact, Cranial Nerves 3-12 NL Psych/Mental Status: Mental Status NL, Mood NL Discharge Home Medications Reviewed and agree with Discharge Medication list on patient's Discharge Instruction sheet Instructions to Patient/Family Please see electronic discharge instructions given to patient. CHRISTEL BATISTA DO March 08, 2022 17:15
[2022-03-09] MEDS ORDERED: LEVOTHYROXINE 25 MCG (LEVOTHROID) TAB PO SCH (06:30)
== END 2022-03-08 13:35 | disposition home or self-care (01) ==
LOC: EDUNIT# 04:01 → ER 04:02 → ICU 07:00
PROVIDERS: ADMIT Family Medicine; ATTEND Family Medicine
DX: G45.9 Transient cerebral ischemic attack, unspecified (principal); R47.01 Aphasia; I67.82 Cerebral ischemia; G62.9 Polyneuropathy, unspecified; E78.00 Pure hypercholesterolemia, unspecified; I10 Essential (primary) hypertension; E03.9 Hypothyroidism, unspecified; R29.701 NIHSS score 1; F41.9 Anxiety disorder, unspecified; K21.9 Gastro-esophageal reflux disease without esophagitis; M19.91 Primary osteoarthritis, unspecified site; Z79.82 Long term (current) use of aspirin; Z88.1 Allergy status to other antibiotic agents; Z88.0 Allergy status to penicillin; Z88.8 Allergy status to other drugs, medicaments and biological substances
CPT/HCPCS: 70450; 70496; 70498; 70551; 71045; 80053; 80061; 81000; 82947; 84439; 84443; 84484; 85025; 85379; 85610; 85730; 93005; 93041; 93306; 99285; G0378; 36415

== ENCOUNTER → 2022-03-25 | Outpatient (CLI) | payer MEDICARE ==
[~2022-03-25] MED LIST changes: +ASPI-808 PO; +CALC300T4 PO; +CALC500T7 PO
--- NOTE | 2022-03-25 14:59 | Diagnostic Imaging Report ---
EXAMINATION: Right ankle radiographs, 3 views. COMPARISON: February 25, 2022 HISTORY: 76-year-old female, postoperative follow-up. FINDINGS: There is sideplate and screw fixation hardware at the level of the right distal tibia. The hardware appears intact. There is a redemonstrated distal tibial diaphyseal fracture with persistent visualized fracture lines. There is a comminuted mildly displaced fracture of the distal fibular diaphysis above the level of the tibial plafond with well visualized fracture lines in unchanged overall alignment and appearance since the prior exam. The alignment of the ankle mortise is unremarkable. There is degenerative type calcaneal enthesopathy. IMPRESSION: Redemonstrated fractures of the distal tibia and fibula without pronounced interval bony callus bridging or healing response since February 25, 2022. There is no change in fracture alignment. The hardware at the level of the distal tibia is intact. Dictated by: Dictated on workstation # [id number]
== END ==
LOC: ORTHO 12:36
PROVIDERS: ATTEND Orthopaedic Surgery
DX: Z47.89 Encounter for other orthopedic aftercare (principal); Z98.890 Other specified postprocedural states
CPT/HCPCS: 73610; G0463; 99213

== ENCOUNTER → 2022-04-27 | Outpatient (CLI) | payer MEDICARE ==
--- NOTE | 2022-04-27 11:51 | Diagnostic Imaging Report ---
INDICATION: Osteopenia COMPARISON: 12/01/2012 FINDINGS: AP Spine L1-L4: [BMD (g/cm2): 1.095] [T-Score: -0.9] [Z-Score: 0.8] [BMD Previous: 1.189] [BMD % Change: -7.9] LT Hip Neck: [BMD (g/cm2): 0.837] [T-Score: -1.4] [Z-Score: 0.6] LT Hip Total: [BMD (g/cm2):0.818] [T-Score:-1.5] [Z-Score: 0.4] [BMD Previous: 0.863] [BMD % Change: -5.2] RT Hip Neck: [BMD (g/cm2):0.797] [T-Score:-1.7] [Z-Score:0.3] RT Hip Total: [BMD (g/cm2):0.675] [T-score:-2.6] [Z-Score:-0.8] [BMD Previous:0.863] [BMD % Change:-5.2] *Indicates significant change from prior examination based on 95% confidence level. World Health Organization criteria for BMD interpretation classify patients as Normal (T-score at or above -1.0), Osteopenic (T-score between -1.0 and -2.5) or Osteoporotic (T-score at or below -2.5). LIMITATIONS AND MODIFICATION: None. FRACTURE RISK (FRAX SCORE): The ten year probability of (%): Major Osteoporotic Fracture: [18.5] Hip Fracture: [4.6] IMPRESSION: 1. Osteoporosis. 2. Bone mineral density has decreased by a statistically significant amount, as detailed above. 3. See below National Osteoporosis Foundation guidelines on when to potentially initiate pharmacologic therapy. Based on the National Osteoporosis Foundation Guidelines, pharmacologic treatment should be initiated in any of the following, unless clinical conditions suggest otherwise: * Any patient with prior fragility fracture of the hip or vertebrae. A spine fracture indicates 5X risk for subsequent spine fracture and 2X risk for subsequent hip fracture. * Osteoporosis (T-score <-2.5). * Postmenopausal women and men age 50 and older with low bone mass/osteopenia (T-score between -1.0 and -2.5) by DXA and 10-year major osteoporotic fracture greater than 20% or a 10-year probability of hip fracture greater than 3%. These fracture risks are supplied above in the FRAX score, if applicable. * Clinician judgement and/or patient preferences may indicate treatment for people with 10-year fracture probabilities above or below these levels. Dictated by: Dictated on workstation # [id number]
== END ==
LOC: RAD 09:57
PROVIDERS: ATTEND Family Medicine
DX: M81.0 Age-related osteoporosis without current pathological fracture (principal)
CPT/HCPCS: 77080

== ENCOUNTER → 2022-04-29 | Outpatient (RCR) | payer MEDICARE | PROVIDERS: ATTEND Family Medicine | DX: S82.291D Other fracture of shaft of right tibia, subsequent encounter for closed fracture with routine healing (principal); S82.401D Unspecified fracture of shaft of right fibula, subsequent encounter for closed fracture with routine healing; X58.XXXD Exposure to other specified factors, subsequent encounter ==

== ENCOUNTER → 2022-05-04 | Outpatient (CLI) | payer MEDICARE ==
--- NOTE | 2022-05-04 13:33 | Diagnostic Imaging Report ---
INDICATION: Follow-up right ankle surgery. Time of Exam: 1:01 PM Correlation is made with prior radiograph from 03/25/2022. There is a plate and numerous screws transfixing the obliquely oriented fracture of the distal tibia. There is some increasing callus formation. Fracture lines remain visible however. Alignment is anatomic. The distal fibula appears to be stable and shows anatomic alignment. The mortise is well-maintained. IMPRESSION: Stable post traumatic and post surgical changes of the right ankle when compared to exam from 03/25/2022. Tibial fracture lines remain visible. Dictated by: Dictated on workstation # [id number]
== END ==
LOC: ORTHO 12:29
PROVIDERS: ATTEND Orthopaedic Surgery
DX: S82.301D Unspecified fracture of lower end of right tibia, subsequent encounter for closed fracture with routine healing (principal); X58.XXXD Exposure to other specified factors, subsequent encounter
CPT/HCPCS: 73610; G0463; 99213

== ENCOUNTER 2022-05-27 09:39 | Outpatient (RCR) | payer MEDICARE | END 2022-05-30 | disposition home or self-care (01) | PROVIDERS: ATTEND Family Medicine | DX: S82.201D Unspecified fracture of shaft of right tibia, subsequent encounter for closed fracture with routine healing (principal); S82.401D Unspecified fracture of shaft of right fibula, subsequent encounter for closed fracture with routine healing; W19.XXXD Unspecified fall, subsequent encounter ==

== ENCOUNTER 2022-06-29 10:19 | Outpatient (RCR) | payer MEDICARE | END 2022-06-30 11:17 | disposition home or self-care (01) | PROVIDERS: ATTEND Family Medicine | DX: S82.201D Unspecified fracture of shaft of right tibia, subsequent encounter for closed fracture with routine healing (principal); S82.401D Unspecified fracture of shaft of right fibula, subsequent encounter for closed fracture with routine healing; W19.XXXD Unspecified fall, subsequent encounter ==

== ENCOUNTER → 2022-07-29 | Outpatient (CLI) | payer MEDICARE ==
--- NOTE | 2022-07-29 11:30 | Diagnostic Imaging Report ---
INDICATION: Lower back pain. COMPARISON: 04/13/2018 FINDINGS: Frontal and lateral radiographic views of lumbar spine were obtained. Again identified is mild levoscoliotic deformity epicentered at the L3 level. There is no significant anterolisthesis or retrolisthesis. There is no evidence of jumped facets. Vertebral body heights are maintained. There is no acute fracture. Moderate multilevel degenerative changes are noted. Note is made of calcified aortic atherosclerosis. IMPRESSION: 1. No acute fracture or dislocation lumbar spine. 2. Moderate multilevel degenerative changes. Dictated by: Dictated on workstation # [id number]
== END ==
LOC: RAD 09:51
PROVIDERS: ATTEND Family Medicine
DX: M47.816 Spondylosis without myelopathy or radiculopathy, lumbar region (principal)
CPT/HCPCS: 72100

== ENCOUNTER → 2022-07-30 | Outpatient (CLI) | payer MEDICARE ==
[~2022-07-30] VITALS: Wt 70.7 kg
[~2022-07-30] MED LIST changes: +ZOLEDRONATE (RECLAST) 5 MG/100 ML IV NR
[2022-07-30 11:05] VITALS: BP 144/97
== END ==
LOC: SDC 10:57
PROVIDERS: ATTEND Family Medicine
DX: M81.0 Age-related osteoporosis without current pathological fracture (principal)
CPT/HCPCS: 96365

== ENCOUNTER → 2022-08-30 | Outpatient (RCR) | payer MEDICARE ==
[~2022-08-30] MED LIST changes: -ZOLEDRONATE (RECLAST) 5 MG/100 ML IV NR
== END | disposition home or self-care (01) ==
PROVIDERS: ATTEND Family Medicine
DX: M51.16 Intervertebral disc disorders with radiculopathy, lumbar region (principal)

== ENCOUNTER 2022-09-27 08:31 | Outpatient (RCR) | payer MEDICARE | END 2022-09-27 09:34 | disposition home or self-care (01) | PROVIDERS: ATTEND Family Medicine | DX: M51.16 Intervertebral disc disorders with radiculopathy, lumbar region (principal) ==

== ENCOUNTER → 2023-03-18 | Outpatient (CLI) | payer MEDICARE ==
--- NOTE | 2023-03-18 08:35 | Diagnostic Imaging Report ---
PROCEDURE: MRI lumbar spine. TECHNIQUE: Multiplanar, multisequence MRI of the lumbar spine was performed without contrast. INDICATION: Bilateral leg pain and radiculopathy. Back pain. COMPARISON: Lumbar spine radiograph 07/29/2022. FINDINGS: Degenerative levoconvex curvature of the lumbar spine. Mild left lateral listhesis of L4 and L5. Mild right lateral listhesis of L2 on L3. Mild to moderate multilevel disc height loss and disc desiccation. No marrow replacement process to suggest malignancy. No acute compression fracture. The cauda equina redundant appearance. The conus is normal. Included views of the abdomen demonstrates no significant abnormality. L1-L2: Disc bulge. Moderate facet arthropathy. Moderate spinal canal narrowing. Mild left neural foraminal narrowing. No right neural foraminal narrowing. L2-L3: Disc bulge. Moderate facet arthropathy. Posteriorly projecting 1 cm synovial cyst off of the right synovial joint. Mild to moderate spinal canal narrowing. Mild bilateral neural foraminal narrowing. L3-L4: Disc bulge. Moderate to severe facet arthropathy. Ligamentum flavum thickening. Severe spinal canal stenosis. Moderate right and mild left neural foraminal narrowing. L4-L5: Disc bulge. Moderate severe facet arthropathy. Ligamentum flavum thickening. Severe spinal canal stenosis. Severe left and moderate right neural foraminal narrowing. L5-S1: Asymmetric left foraminal disc bulge. Moderate facet arthropathy. Mild spinal canal narrowing. Severe left and mild right neural foraminal narrowing. IMPRESSION: Advanced multilevel degenerative changes of the lumbar spine with severe spinal canal stenosis at L3-L4 and L4-L5. Additional multilevel degenerative changes described level by level above. Dictated by: Dictated on workstation # [id number]
== END ==
LOC: RAD 07:27
PROVIDERS: ATTEND Family Medicine
DX: M51.16 Intervertebral disc disorders with radiculopathy, lumbar region (principal); M48.061 Spinal stenosis, lumbar region without neurogenic claudication; M47.26 Other spondylosis with radiculopathy, lumbar region; M51.27 Other intervertebral disc displacement, lumbosacral region; M48.07 Spinal stenosis, lumbosacral region
CPT/HCPCS: 72148

== ENCOUNTER → 2023-07-07 | Outpatient (CLI) | payer MEDICARE ==
--- NOTE | 2023-07-07 10:43 | Diagnostic Imaging Report ---
CLINICAL INDICATION: Patient with pain to right ankle and joints of right foot. EXAM: X-ray of the right ankle, 3 views. COMPARISON: X-ray of the right ankle dated 05/04/2022. FINDINGS: Again seen sideplate and screws affixing the distal tibia and medial malleolar region. There is progression of bony bridging/fusion of the distal fibular fracture with only very minimal fracture lucency remaining on lateral view. There is soft tissue swelling about the ankle which has improved. Healed distal fibular fracture is again seen. Ankle mortise and syndesmotic joints unremarkable. There is a hypertrophic calcaneal spur in the region of the Achilles attachment. IMPRESSION: There is interval near complete solid bony healing of the distal tibial fracture with open reduction internal fixation. There is soft tissue swelling about the ankle which is slightly decreased. Dictated by: Dictated on workstation # [id number]
== END ==
LOC: ORTHO 09:41
PROVIDERS: ATTEND Orthopaedic Surgery
DX: S82.301D Unspecified fracture of lower end of right tibia, subsequent encounter for closed fracture with routine healing (principal); M79.89 Other specified soft tissue disorders; X58.XXXD Exposure to other specified factors, subsequent encounter
CPT/HCPCS: 73610; 99213

== ENCOUNTER 2023-07-14 17:20 | Emergency (ER) | payer MEDICARE ==
[~2023-07-14] VITALS: Ht 171 cm; Wt 75.0 kg
--- NOTE | 2023-07-14 17:51 | ED Head Injury ---
General Chief Complaint: Trauma-Non Activation Stated Complaint: FELL AT HOME ON HEAD Nursing Triage Note: PT WAS WALKING INTO THE KITCHEN AND FELL BACKWARDS, DOES NOT THINK SHE WAS KNOCKED OUT, LOST HER BALANCE AND FELL, WAS NEAR, AMBULATED TO THE CAR TO COME HERE Source: patient, family Exam Limitations: no limitations History of Present Illness Date Seen by Provider: Jul 14, 2023 Time Seen by Provider: 17:30 Initial Comments 78-year-old female presents to the ER with reports of a fall and head injury which occurred around 5 PM. She states that she lost her balance. Denies loss of consciousness. She hit the posterior portion of her head. She takes aspirin daily. Denies dizziness prior to the fall. Patient's reports that patient did have a period where she did not remember after the fall. She could not remember what happened prior to the fall and just after the fall. She is able to recall these things at this time, but patient's states that he did tell her what had occurred before and after the fall. She is alert and oriented x4 at this time, GCS 15. Patient has known amblyopia in the left eye, patient's states that patient's eye appears normal for her. Allergies and Home Medications Allergies Coded Allergies: Penicillins (Verified Allergy, Intermediate, RASH, 11/11/12) azithromycin (Verified Adverse Reaction, Mild, NAUSEA, 04/11/13) gabapentin (Verified Adverse Reaction, Mild, DIZZY, 04/11/13) levofloxacin (Verified Adverse Reaction, Mild, NAUSEA, 04/11/13) temazepam (Verified Adverse Reaction, Unknown, UNSTEADY GAIT, 08/23/16) Uncoded Allergies: BETA BLOCKERS (Adverse Reaction, Mild, DIZZY, 04/11/13) Patient Home Medication List Home Medication List Reviewed: Yes Acetaminophen (Tylenol Extra Strength) 500 Mg Tablet, 500-1,000 MG PO Q8H PRN for PAIN-MILD (1-4), (Reported) Entered as Reported by: MARQUISE HASSAN on 11/13/21 1022 Aspirin (Aspirin) 325 Mg Tablet, 325 MG PO DAILY@0900 Prescribed by: CHRISTEL ATWOOD on 03/08/22 1241 Benzocaine/Resorcinol (Ra Vagicaine Cream) 28 Gm Cream..g., 1 APPLIC TP TID PRN for VAGINITIS, (Reported) Entered as Reported by: MARQUISE HASSAN on 11/13/21 1022 Calcium Carbonate (Tums) 300 Mg Calcium (750 Mg) Tab.chew, 300 MG PO BID Prescribed by: CHRISTEL ATWOOD on 03/08/22 1241 Cholecalciferol (Vitamin D3) (Vitamin D3) 25 Mcg Tablet, 25 MCG PO DAILY, (Reported) Entered as Reported by: KJ CINTRON on 01/28/21 1353 Diazepam (Diazepam) 5 Mg Tablet, 2.5 MG PO DAILY PRN for FOOT PAIN, (Reported) Entered as Reported by: MARQUISE HASSAN on 11/13/21 1022 Duloxetine HCl (Duloxetine HCl) 60 Mg Capsule.dr, 60 MG PO DAILY, (Reported) Entered as Reported by: MARQUISE HASSAN on 11/13/21 1022 Levothyroxine Sodium (Levothyroxine Sodium) 25 Mcg Tablet, 50 MCG PO VARMA,TU,WE,FR,SA, (Reported) Entered as Reported by: MARQUISE HASSAN on 11/13/21 1022 Levothyroxine Sodium (Levothyroxine Sodium) 25 Mcg Tablet, 75 MCG PO ELTON CONCEPCION, (Reported) Entered as Reported by: MARQUISE HASSAN on 11/13/21 102 Meclizine HCl (Meclizine HCl) 25 Mg Tablet, 25 MG PO Q8H PRN for VERTIGO, (Reported) Entered as Reported by: MARQUISE HASSAN on 11/13/21 1022 Pediatric Multivit Comb No.42 (Flintstones) 1 Each Tab.chew, 1 EACH PO BID, (Reported) Entered as Reported by: MARQUISE HASSAN on 11/13/21 1022 Polyethylene Glycol 3350 (Miralax) 17 Gm Powd.pack, 17 GM PO DAILY PRN for CONSTIPATION-2ND LINE, (Reported) Entered as Reported by: MARQUISE HASSAN on 11/13/21 1022 Sucralfate (Sucralfate) 1 Gm Tablet, 0.5 GM PO DAILY PRN for GERD, (Reported) Entered as Reported by: MARQUISE HASSAN on 11/13/21 1022 Review of Systems Review of Systems Constitutional: see HPI Past Uwiqhtl-Suoprt-Cgoyvk Hx Immunizations Up To Date Tetanus Booster (TDap): Unknown First/Initial COVID19 Vaccinat: 11/27/2020 Second COVID19 Vaccination Deepak: 12/25/20 Third COVID19 Vaccination Date: OCT Seasonal Allergies Seasonal Allergies: No Past Medical History Surgeries: Yes (EYE x3, TEETH, EGD/COLONOSCOPIES, BUNIONECTOMY,) Appendectomy, Eye Surgery, Hysterectomy, Oophorectomy, Orthopedic Respiratory: No Currently Using CPAP: No Currently Using BIPAP: No Cardiac: Yes Hypertension, Palpitations Neurological: Yes Neuropathy, Vertigo Reproductive Disorders: No 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 0.0oz. [id number]; 25.00 BMI Method:Stated General Appearance: WD/WN, no apparent distress HEENT: PERRL/EOMI, TMs normal, other (Amblyopia in left eye) Neck: non-tender, full range of motion, supple, normal inspection Cardiovascular: regular rate, rhythm Respiratory: lungs clear, normal breath sounds, no respiratory distress, no accessory muscle use Extremities: normal range of motion, normal inspection Psychiatric: alert, oriented x 3 Crainal Nerves: normal hearing, normal speech, PERRL Motor/Sensory: no motor deficit, no sensory deficit Skin: normal color, warm/dry Progress/Results/Core Measures Results/Orders My Orders Orders - TASHA DUVALL APRN Ct Head/Cervical Spine Wo (07/14/23 17:40) Vital Signs/I&O Blood Pressure Mean: 127 Progress Progress Note : Progress Note Patient seen and evaluated, resting comfortably in bed, no acute distress, patient states she no longer has pain where her head struck the ground. CT head and neck ordered due to age and aspirin use. 1842 CT reviewed. No acute intracranial abnormality. Remote prior lacunar infarct. Findings of chronic small vessel ischemic disease. No acute fracture of the cervical spine. Multilevel advanced degenerative changes of the cervical spine and upper thoracic spine. Result discussed with patient and . Patient reports she had a previous TIA, does not know of a stroke she had previously. Will discharge at this time. Discharge instructions and return precautions provided. Diagnostic Imaging Diagonstic Imaging: CT Plain Films/CT/US/NM/MRI: c-spine, head Comments [facility], [place] NAME: JIMMY KNAPP [facility] REC#: [id number] PT STATUS: REG ER : 1945 PHYSICIAN: TASHA DUVALL APRN ADMIT DATE: 07/14/23/ER Signed Date of Exam:07/14/23 CT HEAD/CERVICAL SPINE WO Procedure: CT head and CT cervical spine without contrast. Technique: Multiple contiguous axial images were obtained through the brain and cervical spine without the use of intravenous contrast. Sagittal and coronal reformations through the cervical spine were then performed. Auto Exposure Controls were utilized during the CT exam to meet ALARA standards for radiation dose reduction. Date: July 14, 2023. Indication: 78-year-old female, fall. Head and neck pain. Comparison: CT head March 07, 2022. Findings: There is no identified skull fracture. The visualized portions of the paranasal sinuses, mastoid air cells, and middle ears are well aerated. There is an area of CSF-like attenuation in the left pinon radiata consistent with prior lacunar infarct. There are areas of low-attenuation in the periventricular and subcortical white matter which are nonspecific but most likely reflect findings of chronic small vessel ischemic disease. There is no identified abnormal extra-axial fluid collection. There is no evidence of acute intracranial hemorrhage. There is no mass effect or midline shift. There are multilevel facet degenerative changes of the cervical spine. There is no identified facet joint subluxation or dislocation. There is arthritis at the C1-C2 articulation. There is grade 1 anterolisthesis of C3 on C4. There is moderate to severe disc height loss at C5-C6 and C6-C7. Prominent posterior disc osteophyte complexes at these levels. There is also prominent posterior disc osteophyte complex at T1-T2. There are additional disc degenerative changes of the cervical spine and additional posterior disc osteophyte complexes present. CT is limited for assessment of disc pathology as well as additional nonbony causes of pathology in the spinal canal. There is no prominent prevertebral soft tissue swelling. There is no identified acute fracture of the cervical spine. The visualized portions of the lung apices are clear. There are carotid vascular calcifications bilaterally. Impression: 1. No identified acute intracranial abnormality. 2. Remote prior lacunar infarct in the left pinon radiata. 3. Findings of chronic small vessel ischemic disease. 4. No identified acute fracture of the cervical spine. 5. Multilevel advanced degenerative changes of the cervical spine and upper thoracic spine. Dictated by: Dictated on workstation # [id number] Dict: 07/14/231815 Trans: 07/14/231822 CV [id number] Interpreted by: GREG GUZMAN MD Electronically signed by: GREG GUZMAN MD 07/14/231822 Departure Impression Primary Impression: Head injury Additional Impression: Fall Disposition: 01 HOME, SELF-CARE Condition: Stable Departure-Patient Inst. Decision time for Depature: 18:43 Referrals: CHRISTEL ATWOOD DO (PCP) Primary Care Physician Patient Instructions: Minor Head Injury, Adult ED Add. Discharge Instructions: Follow-up with Dr. Atwood. Return for abnormal behavior, difficulty doing normal activities, weakness on one side your body, or any other new, concerning, or worsening symptoms. All discharge instructions reviewed with patient and/or family. Voiced understanding. Copy Copies To 1: CHRISTEL ATWOOD BRITTANY R APRN Jul 14, 2023 17:51
--- NOTE | 2023-07-14 18:23 | Diagnostic Imaging Report ---
Procedure: CT head and CT cervical spine without contrast. Technique: Multiple contiguous axial images were obtained through the brain and cervical spine without the use of intravenous contrast. Sagittal and coronal reformations through the cervical spine were then performed. Auto Exposure Controls were utilized during the CT exam to meet ALARA standards for radiation dose reduction. Date: July 14, 2023. Indication: 78-year-old female, fall. Head and neck pain. Comparison: CT head March 07, 2022. Findings: There is no identified skull fracture. The visualized portions of the paranasal sinuses, mastoid air cells, and middle ears are well aerated. There is an area of CSF-like attenuation in the left pinon radiata consistent with prior lacunar infarct. There are areas of low-attenuation in the periventricular and subcortical white matter which are nonspecific but most likely reflect findings of chronic small vessel ischemic disease. There is no identified abnormal extra-axial fluid collection. There is no evidence of acute intracranial hemorrhage. There is no mass effect or midline shift. There are multilevel facet degenerative changes of the cervical spine. There is no identified facet joint subluxation or dislocation. There is arthritis at the C1-C2 articulation. There is grade 1 anterolisthesis of C3 on C4. There is moderate to severe disc height loss at C5-C6 and C6-C7. Prominent posterior disc osteophyte complexes at these levels. There is also prominent posterior disc osteophyte complex at T1-T2. There are additional disc degenerative changes of the cervical spine and additional posterior disc osteophyte complexes present. CT is limited for assessment of disc pathology as well as additional nonbony causes of pathology in the spinal canal. There is no prominent prevertebral soft tissue swelling. There is no identified acute fracture of the cervical spine. The visualized portions of the lung apices are clear. There are carotid vascular calcifications bilaterally. Impression: 1. No identified acute intracranial abnormality. 2. Remote prior lacunar infarct in the left pinon radiata. 3. Findings of chronic small vessel ischemic disease. 4. No identified acute fracture of the cervical spine. 5. Multilevel advanced degenerative changes of the cervical spine and upper thoracic spine. Dictated by: Dictated on workstation # [id number]
[2023-07-14 18:48] VITALS: BP 168/102
== END 2023-07-14 18:50 | disposition home or self-care (01) ==
LOC: EDUNIT# 17:20 → ER 17:24
DX: S09.90XA Unspecified injury of head, initial encounter (principal); I67.89 Other cerebrovascular disease; Z79.82 Long term (current) use of aspirin; W01.198A Fall on same level from slipping, tripping and stumbling with subsequent striking against other object, initial encounter; Y92.000 Kitchen of unspecified non-institutional (private) residence as the place of occurrence of the external cause; Y93.01 Activity, walking, marching and hiking
CPT/HCPCS: 70450; 72125

== ENCOUNTER 2023-07-28 08:38 | Outpatient (RCR) | payer MEDICARE ==
[~2023-07-28 08:38] MED LIST changes: -MECL-149 PO; +MECL-291 PO
== END 2023-07-30 | disposition home or self-care (01) ==
PROVIDERS: ATTEND Pain Medicine Interventional Pain Medicine
DX: M48.062 Spinal stenosis, lumbar region with neurogenic claudication (principal)

== ENCOUNTER 2023-08-19 10:04 | Outpatient (RCR) | payer MEDICARE | END 2023-08-19 10:45 | disposition home or self-care (01) | PROVIDERS: ATTEND Pain Medicine Interventional Pain Medicine | DX: M48.062 Spinal stenosis, lumbar region with neurogenic claudication (principal) ==